=== PATIENT | female | born 1950 | race Caucasian/White ===

== ENCOUNTER 2016-10-21 22:42 | Emergency (ER) | payer OTHER, MEDICAID ==
[2016-08-29 12:04] VITALS: Ht 157.5 cm; Wt 63.0 kg
[~2016-10-21] VITALS: Ht 157.5 cm; Wt 63.0 kg
[2016-10-21 22:42] VITALS: BP 120/64; PULSE 101; RESP 18; TEMP 98.9; O2SAT 98
[~2016-10-21 22:42] MED LIST: HYDR-4100 PO; NOR10 PO; PRED20TA PO; TAPE50TA9 PO; TETR250C3 PO; TRAM50TA92 PO; VITD2000 PO
--- NOTE | 2016-10-21 22:42 | NUR ---
Patient to ER bed 2 to gown for evaluation. Side rails up. Report given to MAHIN Limon.
--- NOTE | 2016-10-21 23:00 | NUR ---
REINA Salmeron at bedside examining patient.
--- NOTE | 2016-10-21 23:13 | NUR ---
Pt. BIBA with c/o pain 06/15 and skin rashes. Pt. states pain has become unbearable. She also states that the rashes on her body have been there since she was born
[2016-10-21] MEDS ORDERED: DIPHENHYDRAMINE INJ 50 MG/ML VIAL IM ONE (23:15)
[2016-10-21] MEDS ORDERED: PREDNISONE 20 MG TABLET PO ONE (23:15)
[2016-10-21] MEDS ORDERED: PROCHLORPERAZINE EDISYLATE 10 MG/2 ML VIAL IM ONE (23:15)
[2016-10-21] MEDS ORDERED: LORazepam 2 MG/ML VIAL (FOR ER USE) IM ONE (23:15)
[2016-10-22] MEDS ORDERED: MORPHINE SULFATE 10 MG/ML VIAL IM ONE (00:15)
--- NOTE | 2016-10-22 00:30 | NUR ---
xray at bedside
[2016-10-22] MEDS ORDERED: MORPHINE 4 MG/ML INJ. SYRINGE ONE (00:31)
--- NOTE | 2016-10-22 01:31 | NUR ---
Transportation called for pt. [place] a ride ETA [id number].
[2016-10-22 02:32] VITALS: BP 110/74; PULSE 91; RESP 18; TEMP 98.2; O2SAT 98
--- NOTE | 2016-10-22 02:32 | NUR ---
Patient given written and verbal discharge instructions and verbalizes understanding. ER MD discussed with patient the results and treatment provided. Patient in stable condition. ID arm band removed. Rx of Prednisone, Zofran, and Benadryl given. Patient educated on pain management and to follow up with PMD. Pain Scale 4/10 Opportunity for questions provided and answered.
== END 2016-10-22 02:32 | disposition home or self-care (01) ==
LOC: SED 22:42
DX: G89.29 Other chronic pain (principal); I10 Essential (primary) hypertension; M19.90 Unspecified osteoarthritis, unspecified site; Z88.8 Allergy status to other drugs, medicaments and biological substances
CPT/HCPCS: 73610; 96372; 99284; J0780; J1200; J2060; J2270; J7512

== ENCOUNTER 2017-05-05 03:14 | Emergency (ER) | payer OTHER, MEDICAID ==
[~2017-05-05] VITALS: Ht 157.5 cm; Wt 57.2 kg
[~2017-05-05 03:14] MED LIST changes: -TETR250C3 PO
[2017-05-05 03:15] VITALS: BP_SYST 157
[2017-05-05] MEDS: MORPHINE 4 MG/ML INJ. SYRINGE IVP ONE ×2 (03:59→04:25)
[2017-05-05] MEDS: DIPHENHYDRAMINE INJ 50 MG/ML VIAL IVP ONE (03:59)
[2017-05-05] MEDS: methylPREDNISolone SOD SUCC/PF 62.5 MG/ML VIAL IVP ONE (04:00)
[2017-05-05] MEDS: NACL 0.9% 1,000 ML IV ONE (04:01)
[2017-05-05 04:15] LABS: CALCIUM 8.9 mg/dL (8.4-11.0); CREATININE 0.72 mg/dL (0.55-1.30); POTASSIUM 3.7 mmol/L (3.5-5.1)
[2017-05-05 04:16] LABS: EOSINOPHILS % (AUTO) 3.1 % (0.0-4.0); HEMATOCRIT 38.5 % (36-48); HEMOGLOBIN 12.1 g/dL (12.0-16.0); LYMPHOCYTES % (AUTO) 25.5 % (20.5-51.5); MEAN CORPUSCULAR HEMOGLOBIN 25 pg (27-31); MEAN CORPUSCULAR HGB CONC 31 % (32-36); MEAN CORPUSCULAR VOLUME 80 fL (79.0-98.0); MONOCYTES % (AUTO) 9.1 % (1.7-9.3); NEUTROPHILS % (AUTO) 60.5 % (40.0-70.0); PLATELET COUNT (AUTO) 398 K/uL (130-430); RED BLOOD CELL COUNT(AUTO) 4.79 MIL/uL (4.2-6.2); RED CELL DISTRIBUTION WIDTH 17.1 % (9.0-15.0)
[2017-05-05 04:17] LABS: BASOPHILS # (AUTO) 0.2 K/uL (0.0-0.2); BASOPHILS % (AUTO) 1.8 % (0.0-2.0); EOSINOPHILS # (AUTO) 0.4 K/uL (0.0-0.4); LYMPHOCYTES # (AUTO) 3.3 K/uL (1.0-5.5); MONOCYTES # (AUTO) 1.2 K/uL (0.0-1.0); NEUTROPHILS # (AUTO) 7.9 K/uL (1.8-7.7)
[2017-05-05 04:20] LABS: ALBUMIN 3.6 g/dL (3.4-4.8); TOTAL BILIRUBIN 0.6 mg/dL (0.0-1.0)
[2017-05-05 04:21] LABS: INR 1.1 (0.8-1.2); PROTHROMBIN TIME 11.6 SECS (9.5-12.5)
[2017-05-05 04:34] LABS: BILIRUBIN,URINE NEGATIVE (NEGATIVE); BLOOD, URINE NEGATIVE (NEGATIVE); CLARITY/URINE CLEAR (CLEAR); COLOR,URINE YELLOW (YELLOW); GLUCOSE,URINE NEGATIVE (NEGATIVE); KETONES,URINE NEGATIVE (NEGATIVE); LEUKOCYTE ESTERASE ,URINE TRACE (NEGATIVE); NITRITE, URINE NEGATIVE (NEGATIVE); PH,URINE 5.5 (5.0-8.0); PROTEIN URINE NEGATIVE (NEGATIVE); UROBILINOGEN,URINE 0.2 (0.2-1.0)
[2017-05-05 04:36] LABS: BACTERIA,URINE FEW /HPF (None Seen); MUCUS,URINE None Seen /LPF (None Seen); RBC,URINE 0-3 /HPF (0-3)
[2017-05-05 04:54] LABS: ERYTHROCYTE SEDIMENTATION RATE 9 MM/HR (0-20)
[2017-05-05] MEDS: HYDROmorphone 1 MG INJ. 1 MG/ML AMPUL IVP ONE (05:42)
[2017-05-05 07:12] VITALS: BP_SYST 146
== END 2017-05-05 07:12 | disposition home or self-care (01) ==
LOC: SED 03:14
DX: L25.9 Unspecified contact dermatitis, unspecified cause (principal); L12.0 Bullous pemphigoid; M19.90 Unspecified osteoarthritis, unspecified site; F17.200 Nicotine dependence, unspecified, uncomplicated; Z88.6 Allergy status to analgesic agent; Z79.899 Other long term (current) drug therapy
CPT/HCPCS: 36415; 80053; 81000; 85025; 85610; 85651; 85730; 87086; 96361; 96374; 96375; 99284; J1170; J1200; J2270; J2930; J7030

== ENCOUNTER 2018-06-07 01:49 | Emergency (ER) | payer OTHER, MEDICAID ==
[~2018-06-07] VITALS: Ht 157.5 cm; Wt 57.2 kg
[2018-06-07 01:57] VITALS: BP_SYST 138
[2018-06-07] MEDS ORDERED: NACL 0.9% 1,000 ML IV ONE (01:57)
[2018-06-07] MEDS ORDERED: ONDANSETRON HCL 4 MG/2 ML VIAL IVP ONE (02:00)
[2018-06-07] MEDS ORDERED: MORPHINE SULFATE 10 MG/ML VIAL IVP ONE (02:00)
[2018-06-07 02:45] LABS: BASOPHILS # (AUTO) 0.1 K/uL (0.0-0.2); EOSINOPHILS # (AUTO) 0.1 K/uL (0.0-0.4); EOSINOPHILS % (AUTO) 0.6 % (0.0-4.0); HEMATOCRIT 45.8 % (36-48); HEMOGLOBIN 14.7 g/dL (12.0-16.0); LYMPHOCYTES # (AUTO) 1.9 K/uL (1.0-5.5); MEAN CORPUSCULAR HEMOGLOBIN 29 pg (27-31); MEAN CORPUSCULAR HGB CONC 32 % (32-36); MEAN CORPUSCULAR VOLUME 89 fL (79.0-98.0); MONOCYTES # (AUTO) 0.8 K/uL (0.0-1.0); NEUTROPHILS # (AUTO) 8.2 K/uL (1.8-7.7); NEUTROPHILS % (AUTO) 74.4 % (40.0-70.0); PLATELET COUNT (AUTO) 549 K/uL (130-430); RED BLOOD CELL COUNT(AUTO) 5.17 MIL/uL (4.2-6.2); RED CELL DISTRIBUTION WIDTH 16.1 % (9.0-15.0); WHITE BLOOD COUNT (AUTO) 11.1 K/uL (4.8-10.8)
[2018-06-07 02:48] LABS: INR 1.1 (0.8-1.2); PROTHROMBIN TIME 11.6 SECS (9.5-12.5)
[2018-06-07 02:49] LABS: CALCIUM 9.7 mg/dL (8.4-11.0); CREATININE 0.62 mg/dL (0.55-1.30); POTASSIUM 3.3 mmol/L (3.5-5.1)
[2018-06-07 02:53] LABS: ALBUMIN 3.6 g/dL (3.4-4.8); TOTAL BILIRUBIN 0.5 mg/dL (0.0-1.0)
[2018-06-07] MEDS ORDERED: MORPHINE 4 MG/ML INJ. SYRINGE IVP ONE (03:15)
[2018-06-07] MEDS ORDERED: LORazepam 2 MG/ML VIAL (FOR ER USE) IVP ONE (04:15)
[2018-06-07 04:47] VITALS: BP_SYST 133
== END 2018-06-07 04:47 | disposition home or self-care (01) ==
LOC: SED 01:49
DX: G89.29 Other chronic pain (principal); L12.0 Bullous pemphigoid; M54.30 Sciatica, unspecified side; I10 Essential (primary) hypertension; Z88.6 Allergy status to analgesic agent; Z79.899 Other long term (current) drug therapy
CPT/HCPCS: 36415; 71045; 80053; 82150; 82550; 83690; 84484; 85025; 85610; 85730; 93005; 96374; 96375; 96376; 99285; J2060; J2270 ×2; J7030; J2405

== ENCOUNTER 2018-06-08 23:26 | Inpatient (IN) | payer OTHER, MEDICAID ==
[~2018-06-08] VITALS: Ht 157.5 cm; Wt 63.0 kg
[2018-06-08 23:31] VITALS: BP_SYST 141
[2018-06-08] MEDS ORDERED: NACL 0.9% 1,000 ML IV ONE (23:39)
[2018-06-08] MEDS ORDERED: DIPHENHYDRAMINE INJ 50 MG/ML VIAL IM ONE (23:45)
[2018-06-08] MEDS ORDERED: MORPHINE SULFATE 10 MG/ML VIAL IM ONE (23:45)
[2018-06-09] MEDS ORDERED: PREDNISONE 20 MG TABLET PO ONE
[2018-06-09] MEDS ORDERED: OXYC-158 PO (00:17)
[2018-06-09] MEDS ORDERED: MORP4SYR PO (00:17)
[2018-06-09 00:26] LABS: CALCIUM 9.5 mg/dL (8.4-11.0); CREATININE 0.85 mg/dL (0.55-1.30); POTASSIUM 3.6 mmol/L (3.5-5.1)
[2018-06-09] MEDS ORDERED: LORazepam 2 MG/ML VIAL (FOR ER USE) IVP ONE (00:30)
[2018-06-09 00:31] LABS: BASOPHILS # (AUTO) 0.4 K/uL (0.0-0.2); BASOPHILS % (AUTO) 2.3 % (0.0-2.0); EOSINOPHILS # (AUTO) 0.5 K/uL (0.0-0.4); EOSINOPHILS % (AUTO) 3.3 % (0.0-4.0); HEMATOCRIT 49.3 % (36-48); HEMOGLOBIN 16.3 g/dL (12.0-16.0); LYMPHOCYTES # (AUTO) 2.9 K/uL (1.0-5.5); LYMPHOCYTES % (AUTO) 17.8 % (20.5-51.5); MEAN CORPUSCULAR HEMOGLOBIN 29 pg (27-31); MEAN CORPUSCULAR HGB CONC 33 % (32-36); MEAN CORPUSCULAR VOLUME 89 fL (79.0-98.0); MONOCYTES # (AUTO) 1.1 K/uL (0.0-1.0); MONOCYTES % (AUTO) 6.9 % (1.7-9.3); NEUTROPHILS # (AUTO) 11.2 K/uL (1.8-7.7); NEUTROPHILS % (AUTO) 69.7 % (40.0-70.0); PLATELET COUNT (AUTO) 662 K/uL (130-430); RED BLOOD CELL COUNT(AUTO) 5.54 MIL/uL (4.2-6.2); RED CELL DISTRIBUTION WIDTH 15.8 % (9.0-15.0); WHITE BLOOD COUNT (AUTO) 16.1 K/uL (4.8-10.8)
[2018-06-09 00:40] LABS: ALBUMIN 3.8 g/dL (3.4-4.8); TOTAL BILIRUBIN 0.8 mg/dL (0.0-1.0)
[2018-06-09 00:43] LABS: INR 1.2 (0.8-1.2); PROTHROMBIN TIME 11.8 SECS (9.5-12.5)
[2018-06-09] MEDS ORDERED: MORPHINE 4 MG/ML INJ. SYRINGE IVP ONE (00:45)
[2018-06-09] MEDS ORDERED: DIPHENHYDRAMINE INJ 50 MG/ML VIAL IVP ONE (00:45)
[2018-06-09] MEDS ORDERED: cefTRIAXone 1 GM IVPB PREMIX 50 ML IV ONE ×2 (01:45)
[2018-06-09] MEDS: MORPHINE 2 MG/ML INJ. SYRINGE IVP PRN ×4 (02:22→20:44)
[2018-06-09] MEDS ORDERED: HYDROcodone/ACETAMIN 10-325 MG TAB PO PRN (03:00)
[2018-06-09] MEDS ORDERED: LORazepam 2 MG/ML VIAL IM PRN (03:00)
[2018-06-09] MEDS: LORazepam 2 MG/ML VIAL IVP PRN ×3 (03:26→21:35)
[2018-06-09] MEDS: DIPHENHYDRAMINE HCL 25 MG CAPSULE PO PRN (08:57)
[2018-06-09] MEDS ORDERED: ACETAMINOPHEN 325 MG TABLET PO PRN (09:15)
[2018-06-09] MEDS ORDERED: ZOLPIDEM TARTRATE 5 MG TABLET PO PRN (09:15)
[2018-06-09] MEDS ORDERED: ONDANSETRON HCL 4 MG/2 ML VIAL IVP PRN (09:15)
[2018-06-09] MEDS ORDERED: MAGNESIUM SULFATE 50 ML IV PRN (09:15)
[2018-06-09] MEDS ORDERED: DOCUSATE SODIUM 100 MG CAPSULE PO PRN (09:15)
[2018-06-09] MEDS ORDERED: OXYCODONE/ACETAMINOPHEN *10*mg/325 mg TABLET ONE (09:22)
[2018-06-09] MEDS ORDERED: DOXYCYCLINE HYCLATE 100 MG CAPSULE PO ONE (10:15)
[2018-06-09] MEDS: amLODIPine BESYLATE 10 MG TABLET PO SCH (10:26)
[2018-06-09] MEDS: traMADol HCL HCL 50 MG TABLET (ULTRAM) PO SCH ×3 (10:27→21:44)
[2018-06-09] MEDS: PREDNISONE 5 MG TABLET PO SCH (10:27)
[2018-06-09] MEDS: NACL 0.9% 1,000 ML IV SCH ×2 (10:28→22:57)
[2018-06-09 12:20] VITALS: BP_SYST 114
[2018-06-09] MEDS: FLUCONAZOLE 200 mg/ NS 100 ML IV SCH (14:48)
[2018-06-09] MEDS: ceFAZolin SODIUM 1 GM in D5W 50 ML IV SCH ×2 (14:48→22:57)
[2018-06-09 16:42] VITALS: BP_SYST 121
[2018-06-09 17:21] LABS: BILIRUBIN,URINE NEGATIVE (NEGATIVE); BLOOD, URINE 1+ (NEGATIVE); CLARITY/URINE CLEAR (CLEAR); COLOR,URINE YELLOW (YELLOW); GLUCOSE,URINE NEGATIVE (NEGATIVE); KETONES,URINE 2+ (NEGATIVE); LEUKOCYTE ESTERASE ,URINE TRACE (NEGATIVE); NITRITE, URINE NEGATIVE (NEGATIVE); PROTEIN URINE TRACE (NEGATIVE); UROBILINOGEN,URINE 0.2 (0.2-1.0)
[2018-06-09 17:50] LABS: BARBITURATE, URINE NEGATIVE (NEG <=200); URINE AMPHETAMINE NEGATIVE (NEG <=500)
[2018-06-09 17:51] LABS: BENZODIAZEPINE, URINE POSITIVE (NEG <=150); CANNABINOID, URINE NEGATIVE (NEG <=50); COCAINE, URINE NEGATIVE (NEG <=150); METHAMPHETAMINES SCREEN,URINE NEGATIVE (NEG <=500); OPIATE, URINE POSITIVE (NEG <=100); PHENCYCLIDINE SCREEN,URINE NEGATIVE (NEG <=25); UR TRICYCLIC ANTIDEPRESSANTS NEGATIVE (NEG <=300); URINE METHADONE NEGATIVE (NEG <=200); URINE OXYCODONE SCREEN POSITIVE (NEG <=100); URINE PROPOXYPHENE SCREEN NEGATIVE (NEG <=300)
[2018-06-09 18:20] LABS: BACTERIA,URINE FEW /HPF (None Seen); RBC,URINE 0-3 /HPF (0-3)
[2018-06-09 18:21] LABS: FINE GRANULAR CASTS,URINE 0-10 /LPF (None Seen); HYALINE CASTS, URINE 0-10 /LPF (None Seen); MUCUS,URINE 2+ /LPF (None Seen)
[2018-06-09 20:20] VITALS: BP_SYST 136
[2018-06-09] MEDS ORDERED: cefTRIAXone 1 GM in D5W 50 ML IV SCH (21:00)
[2018-06-09] MEDS: HEPARIN SODIUM,PORCINE 5000 UNITS/ML VIAL SUBCUT SCH (21:41)
[2018-06-10 00:14] VITALS: BP_SYST 135
[2018-06-10] MEDS: MORPHINE 2 MG/ML INJ. SYRINGE IVP PRN ×6 (00:48→21:33)
[2018-06-10] MEDS: LORazepam 2 MG/ML VIAL IVP PRN ×5 (03:01→19:59)
[2018-06-10] MEDS: ceFAZolin SODIUM 1 GM in D5W 50 ML IV SCH ×3 (06:22→21:32)
[2018-06-10] MEDS: OXYCODONE/ACETAMINOPHEN *10*mg/325 mg TABLET PO PRN ×5 (06:25→23:45)
[2018-06-10 07:01] LABS: BASOPHILS # (AUTO) 0.1 K/uL (0.0-0.2); BASOPHILS % (AUTO) 1.1 % (0.0-2.0); CALCIUM 8.5 mg/dL (8.4-11.0); CREATININE 0.41 mg/dL (0.55-1.30); EOSINOPHILS # (AUTO) 0.2 K/uL (0.0-0.4); EOSINOPHILS % (AUTO) 1.6 % (0.0-4.0); HEMATOCRIT 41.4 % (36-48); HEMOGLOBIN 13.4 g/dL (12.0-16.0); LYMPHOCYTES # (AUTO) 2.1 K/uL (1.0-5.5); MEAN CORPUSCULAR HEMOGLOBIN 29 pg (27-31); MEAN CORPUSCULAR HGB CONC 32 % (32-36); MEAN CORPUSCULAR VOLUME 89 fL (79.0-98.0); MONOCYTES # (AUTO) 0.9 K/uL (0.0-1.0); MONOCYTES % (AUTO) 8.2 % (1.7-9.3); NEUTROPHILS # (AUTO) 7.1 K/uL (1.8-7.7); NEUTROPHILS % (AUTO) 69.1 % (40.0-70.0); PLATELET COUNT (AUTO) 428 K/uL (130-430); POTASSIUM 3.1 mmol/L (3.5-5.1); RED BLOOD CELL COUNT(AUTO) 4.64 MIL/uL (4.2-6.2); RED CELL DISTRIBUTION WIDTH 15.7 % (9.0-15.0); WHITE BLOOD COUNT (AUTO) 10.4 K/uL (4.8-10.8)
[2018-06-10] MEDS: PREDNISONE 5 MG TABLET PO SCH (08:51)
[2018-06-10] MEDS: traMADol HCL HCL 50 MG TABLET (ULTRAM) PO SCH ×3 (08:52→19:58)
[2018-06-10] MEDS: amLODIPine BESYLATE 10 MG TABLET PO SCH (08:54)
[2018-06-10] MEDS: HEPARIN SODIUM,PORCINE 5000 UNITS/ML VIAL SUBCUT SCH ×2 (08:56→20:00)
[2018-06-10] MEDS: NACL 0.9% 1,000 ML IV SCH ×2 (08:59→22:45)
[2018-06-10] MEDS ORDERED: DOXYCYCLINE HYCLATE 100 MG CAPSULE PO SCH (09:00)
[2018-06-10 09:02] VITALS: BP_SYST 142
[2018-06-10] MEDS: POTASSIUM CHLORIDE 20 MEQ TAB.PRT.SR PO PRN ×2 (10:31→20:14)
[2018-06-10 12:02] VITALS: BP_SYST 138
[2018-06-10] MEDS: FLUCONAZOLE 200 mg/ NS 100 ML IV SCH (14:17)
[2018-06-10 16:02] VITALS: BP_SYST 114
[2018-06-10 19:45] VITALS: BP_SYST 153
[2018-06-10] MEDS: DIPHENHYDRAMINE HCL 25 MG CAPSULE PO PRN (21:32)
[2018-06-10 23:10] VITALS: BP_SYST 129
[2018-06-11] MEDS: LORazepam 2 MG/ML VIAL IVP PRN ×5 (00:23→19:22)
[2018-06-11] MEDS: MORPHINE 2 MG/ML INJ. SYRINGE IVP PRN ×5 (02:10→21:27)
[2018-06-11] MEDS: OXYCODONE/ACETAMINOPHEN *10*mg/325 mg TABLET PO PRN ×5 (03:49→23:26)
[2018-06-11 06:54] LABS: HEMATOCRIT 41.9 % (36-48); HEMOGLOBIN 13.6 g/dL (12.0-16.0); MEAN CORPUSCULAR HEMOGLOBIN 29 pg (27-31); MEAN CORPUSCULAR HGB CONC 32 % (32-36); MEAN CORPUSCULAR VOLUME 89 fL (79.0-98.0); PLATELET COUNT (AUTO) 430 K/uL (130-430); RED BLOOD CELL COUNT(AUTO) 4.69 MIL/uL (4.2-6.2); RED CELL DISTRIBUTION WIDTH 15.9 % (9.0-15.0); WHITE BLOOD COUNT (AUTO) 7.3 K/uL (4.8-10.8)
[2018-06-11] MEDS: ceFAZolin SODIUM 1 GM in D5W 50 ML IV SCH ×3 (06:57→21:26)
[2018-06-11 07:29] LABS: CALCIUM 8.7 mg/dL (8.4-11.0); CREATININE 0.43 mg/dL (0.55-1.30); POTASSIUM 3.7 mmol/L (3.5-5.1)
[2018-06-11 08:55] VITALS: BP_SYST 119
[2018-06-11] MEDS ORDERED: MUPIROCIN 2% TOPICAL OINTMENT 22 GM NS PRN (09:00)
[2018-06-11] MEDS: traMADol HCL HCL 50 MG TABLET (ULTRAM) PO SCH ×3 (09:06→21:20)
[2018-06-11] MEDS: PREDNISONE 5 MG TABLET PO SCH (09:07)
[2018-06-11] MEDS: amLODIPine BESYLATE 10 MG TABLET PO SCH (09:07)
[2018-06-11] MEDS: HEPARIN SODIUM,PORCINE 5000 UNITS/ML VIAL SUBCUT SCH ×2 (09:10→21:33)
[2018-06-11 10:14] LABS: BASOPHILS % (MANUAL) 0 % (0-2); EOSINOPHILS % (MANUAL) 3 % (0-7); LYMPHOCYTES % (MANUAL) 24 % (20-46); MONOCYTES % (MANUAL) 13 % (0-11)
[2018-06-11 11:30] VITALS: BP_SYST 108
[2018-06-11] MEDS: NACL 0.9% 1,000 ML IV SCH ×2 (12:10→23:26)
[2018-06-11 15:09] VITALS: BP_SYST 139
[2018-06-11 21:27] VITALS: BP_SYST 151
[2018-06-12 00:08] VITALS: BP_SYST 147
[2018-06-12] MEDS: LORazepam 2 MG/ML VIAL IVP PRN (00:56)
[2018-06-12] MEDS: MORPHINE 2 MG/ML INJ. SYRINGE IVP PRN ×3 (01:51→10:27)
[2018-06-12] MEDS: ceFAZolin SODIUM 1 GM in D5W 50 ML IV SCH ×2 (06:13→12:58)
[2018-06-12 06:45] LABS: CALCIUM 8.9 mg/dL (8.4-11.0); CREATININE 0.45 mg/dL (0.55-1.30); POTASSIUM 3.3 mmol/L (3.5-5.1)
[2018-06-12 07:08] LABS: BASOPHILS # (AUTO) 0.2 K/uL (0.0-0.2); BASOPHILS % (AUTO) 2.1 % (0.0-2.0); EOSINOPHILS # (AUTO) 0.2 K/uL (0.0-0.4); EOSINOPHILS % (AUTO) 2.5 % (0.0-4.0); HEMATOCRIT 43.2 % (36-48); HEMOGLOBIN 13.9 g/dL (12.0-16.0); LYMPHOCYTES # (AUTO) 2.3 K/uL (1.0-5.5); LYMPHOCYTES % (AUTO) 24.2 % (20.5-51.5); MEAN CORPUSCULAR HEMOGLOBIN 29 pg (27-31); MEAN CORPUSCULAR HGB CONC 32 % (32-36); MEAN CORPUSCULAR VOLUME 89 fL (79.0-98.0); MONOCYTES # (AUTO) 0.7 K/uL (0.0-1.0); MONOCYTES % (AUTO) 7.6 % (1.7-9.3); NEUTROPHILS # (AUTO) 6.3 K/uL (1.8-7.7); NEUTROPHILS % (AUTO) 63.6 % (40.0-70.0); PLATELET COUNT (AUTO) 433 K/uL (130-430); RED BLOOD CELL COUNT(AUTO) 4.86 MIL/uL (4.2-6.2); RED CELL DISTRIBUTION WIDTH 15.4 % (9.0-15.0); WHITE BLOOD COUNT (AUTO) 9.7 K/uL (4.8-10.8)
[2018-06-12] MEDS ORDERED: FLUC200T PO (07:55)
[2018-06-12] MEDS ORDERED: CEPH-568 PO (07:55)
[2018-06-12] MEDS ORDERED: DOXY100T2 PO (07:55)
[2018-06-12 08:01] VITALS: BP_SYST 151
[2018-06-12] MEDS: PREDNISONE 5 MG TABLET PO SCH (08:11)
[2018-06-12] MEDS: POTASSIUM CHLORIDE 20 MEQ TAB.PRT.SR PO PRN (08:12)
[2018-06-12] MEDS: amLODIPine BESYLATE 10 MG TABLET PO SCH (08:12)
[2018-06-12] MEDS: OXYCODONE/ACETAMINOPHEN *10*mg/325 mg TABLET PO PRN ×2 (08:12→12:31)
[2018-06-12] MEDS: traMADol HCL HCL 50 MG TABLET (ULTRAM) PO SCH (08:13)
[2018-06-12] MEDS: HEPARIN SODIUM,PORCINE 5000 UNITS/ML VIAL SUBCUT SCH (08:14)
[2018-06-12] MEDS ORDERED: FLUCONAZOLE 200 MG TABLET (DIFLUCAN) PO SCH (09:00)
[2018-06-12 10:41] VITALS: BP_SYST 135
[2018-06-12] MEDS: NACL 0.9% 1,000 ML IV SCH (11:27)
[2018-06-12 12:02] VITALS: BP_SYST 135
== END 2018-06-12 14:00 | disposition home or self-care (01) | DRG 872 ==
LOC: SED 23:26 → SMU 06-09 01:23
PROVIDERS: ADMIT General Practice; ATTEND General Practice
DX: A41.9 Sepsis, unspecified organism (principal); L03.319 Cellulitis of trunk, unspecified; L12.0 Bullous pemphigoid; F11.20 Opioid dependence, uncomplicated; L03.116 Cellulitis of left lower limb; L03.115 Cellulitis of right lower limb; L03.114 Cellulitis of left upper limb; L03.113 Cellulitis of right upper limb; M35.9 Systemic involvement of connective tissue, unspecified; B96.89 Other specified bacterial agents as the cause of diseases classified elsewhere; I10 Essential (primary) hypertension; F41.9 Anxiety disorder, unspecified; E87.6 Hypokalemia; G89.4 Chronic pain syndrome; B36.9 Superficial mycosis, unspecified; F17.210 Nicotine dependence, cigarettes, uncomplicated; Z90.710 Acquired absence of both cervix and uterus; Z88.6 Allergy status to analgesic agent; Z71.6 Tobacco abuse counseling
CPT/HCPCS: 36415; 80048; 80053; 80307; 81000-TC; 83036; 83605; 83735-TC; 85007; 85025; 85027; 85610-TC; 85651-TC; 85730-TC; 87040-TC; 87081; 87086; 87210-TC; 96365; 96372; 96375; 99285; J0690; J0696; J1200; J1450; J1644; J2060; J2270; J7030; J7060; J7512; Q0163

== ENCOUNTER 2018-08-05 20:31 | Emergency (ER) | payer OTHER, MEDICAID ==
[~2018-08-05] VITALS: Ht 157.5 cm; Wt 57.2 kg
[2018-08-05 20:31] VITALS: BP_SYST 141
[~2018-08-05 20:31] MED LIST changes: +CEPH-568 PO; +DOXY100T2 PO; +FLUC200T PO; -HYDR-4100 PO; +MORP4SYR PO; +OXYC-158 PO
[2018-08-05] MEDS ORDERED: FAMOTIDINE PF 20 MG/2 ML VIAL IVP ONE (20:45)
[2018-08-05] MEDS ORDERED: MORPHINE 4 MG/ML INJ. SYRINGE IVP ONE ×3 (20:45→23:15)
[2018-08-05] MEDS ORDERED: ONDANSETRON HCL 4 MG/2 ML VIAL IVP ONE (20:45)
[2018-08-05 21:08] LABS: BASOPHILS # (AUTO) 0.1 K/uL (0.0-0.2); BASOPHILS % (AUTO) 1.1 % (0.0-2.0); EOSINOPHILS # (AUTO) 0.2 K/uL (0.0-0.4); EOSINOPHILS % (AUTO) 1.9 % (0.0-4.0); HEMATOCRIT 43.2 % (36-48); HEMOGLOBIN 13.9 g/dL (12.0-16.0); LYMPHOCYTES # (AUTO) 2.1 K/uL (1.0-5.5); LYMPHOCYTES % (AUTO) 24.8 % (20.5-51.5); MEAN CORPUSCULAR HEMOGLOBIN 29 pg (27-31); MEAN CORPUSCULAR HGB CONC 32 % (32-36); MEAN CORPUSCULAR VOLUME 89 fL (79.0-98.0); MONOCYTES # (AUTO) 0.6 K/uL (0.0-1.0); MONOCYTES % (AUTO) 6.5 % (1.7-9.3); NEUTROPHILS # (AUTO) 5.5 K/uL (1.8-7.7); NEUTROPHILS % (AUTO) 65.7 % (40.0-70.0); RED BLOOD CELL COUNT(AUTO) 4.86 MIL/uL (4.2-6.2); RED CELL DISTRIBUTION WIDTH 16.1 % (9.0-15.0); WHITE BLOOD COUNT (AUTO) 8.5 K/uL (4.8-10.8)
[2018-08-05 21:12] LABS: PLATELET COUNT (AUTO) 481 K/uL (130-430)
[2018-08-05 21:15] LABS: CREATININE 0.51 mg/dL (0.55-1.30); POTASSIUM 3.3 mmol/L (3.5-5.1)
[2018-08-05 21:19] LABS: ALBUMIN 3.5 g/dL (3.4-4.8); TOTAL BILIRUBIN 0.8 mg/dL (0.0-1.0)
[2018-08-05] MEDS ORDERED: MAG HYDROX/AL HYDROX/SIMETH 30 ML, BELLADONNA ALKALOIDS/PHENOBARB 10 ML, LIDOCAINE VISC... PO ONE ×3 (21:45)
[2018-08-05] MEDS ORDERED: LACTULOSE 20 GM/30 ML UDC PO ONE (22:30)
[2018-08-05] MEDS ORDERED: NA PHOS,M-B/NA PHOS,DI-BA 118 ML (FLEET ENEMA) RC ONE (22:45)
[2018-08-05] MEDS ORDERED: ACETAMINOPHEN 500 MG TABLET PO ONE (23:00)
[2018-08-05] MEDS ORDERED: ACETAMINOPHEN 500 MG TABLET ONE (23:04)
[2018-08-05 23:30] VITALS: BP_SYST 132
== END 2018-08-05 23:30 | disposition home or self-care (01) ==
LOC: SED 20:31
DX: G89.29 Other chronic pain (principal); K59.00 Constipation, unspecified; I10 Essential (primary) hypertension; Z76.5 Malingerer [conscious simulation]; Z88.6 Allergy status to analgesic agent; Z79.899 Other long term (current) drug therapy
CPT/HCPCS: 36415; 74176; 80053; 83690; 85025; 96374; 96375; 96376; 99284; J2001; J2270; J2405; J3490

== ENCOUNTER 2018-10-04 23:02 | Emergency (ER) | payer OTHER, MEDICAID ==
[~2018-10-04] VITALS: Ht 157.5 cm; Wt 57.2 kg
[2018-10-04 23:07] VITALS: BP_SYST 138
[2018-10-04] MEDS ORDERED: MORPHINE 4 MG/ML INJ. SYRINGE IVP ONE (23:45)
[2018-10-04] MEDS ORDERED: NACL 0.9% 1,000 ML IV ONE (23:45)
[2018-10-04] MEDS ORDERED: DIPHENHYDRAMINE INJ 50 MG/ML VIAL IVP ONE (23:45)
[2018-10-05 00:25] LABS: BASOPHILS # (AUTO) 0.1 K/uL (0.0-0.2); BASOPHILS % (AUTO) 1.1 % (0.0-2.0); EOSINOPHILS # (AUTO) 0.8 K/uL (0.0-0.4); EOSINOPHILS % (AUTO) 6.8 % (0.0-4.0); HEMATOCRIT 41.2 % (36-48); HEMOGLOBIN 13.4 g/dL (12.0-16.0); LYMPHOCYTES # (AUTO) 2.4 K/uL (1.0-5.5); LYMPHOCYTES % (AUTO) 20.3 % (20.5-51.5); MEAN CORPUSCULAR HEMOGLOBIN 29 pg (27-31); MEAN CORPUSCULAR HGB CONC 33 % (32-36); MEAN CORPUSCULAR VOLUME 88 fL (79.0-98.0); MONOCYTES # (AUTO) 0.5 K/uL (0.0-1.0); MONOCYTES % (AUTO) 4.6 % (1.7-9.3); NEUTROPHILS # (AUTO) 7.9 K/uL (1.8-7.7); NEUTROPHILS % (AUTO) 67.2 % (40.0-70.0); PLATELET COUNT (AUTO) 455 K/uL (130-430); RED BLOOD CELL COUNT(AUTO) 4.69 MIL/uL (4.2-6.2); WHITE BLOOD COUNT (AUTO) 11.7 K/uL (4.8-10.8)
[2018-10-05 00:35] LABS: CALCIUM 8.4 mg/dL (8.4-11.0); CREATININE 0.48 mg/dL (0.55-1.30); POTASSIUM 3.6 mmol/L (3.5-5.1)
[2018-10-05 00:40] LABS: ALBUMIN 3.1 g/dL (3.4-4.8); TOTAL BILIRUBIN 0.3 mg/dL (0.0-1.0)
[2018-10-05] MEDS ORDERED: MORPHINE 4 MG/ML INJ. SYRINGE IVP ONE (01:00)
[2018-10-05] MEDS ORDERED: HALOPERIDOL LACTATE 5 MG/ML VIAL IVP ONE (01:00)
[2018-10-05 02:15] VITALS: BP_SYST 136
== END 2018-10-05 02:15 | disposition home or self-care (01) ==
LOC: SED 23:02
DX: R21 Rash and other nonspecific skin eruption (principal); F41.9 Anxiety disorder, unspecified; I10 Essential (primary) hypertension; Z88.6 Allergy status to analgesic agent; Z79.899 Other long term (current) drug therapy
CPT/HCPCS: 36415; 71045; 80053; 83605; 85025; 87040; 96374; 96375; 96376; 99284; J1200; J1630; J2270; J7030

== ENCOUNTER 2018-10-14 03:25 | Inpatient (IN) | payer OTHER, MEDICAID ==
[~2018-10-14] VITALS: Ht 157.5 cm; Wt 54.0 kg
[~2018-10-14 03:25] MED LIST changes: -TAPE50TA9 PO; +[UNRECOGNIZED DRUG - CODE] PO
--- NOTE | 2018-10-14 03:27 | NUR ---
Patient to ER bed 3 to gown for evaluation. Side rails up. Report given to NAHID STOCKTON.
[2018-10-14 03:28] VITALS: BP_SYST 136
--- NOTE | 2018-10-14 03:36 | NUR ---
ER at bedside examining patient.
--- NOTE | 2018-10-14 03:40 | NUR ---
Pt came to the ED post fall 9 days ago. Pt resides at [facility]. Pain is 10/10. Reports to not have been able to drink/eat for the last 4 days. Denies n/v/d or fever. Pain located on L hip. No other complaints/injuries noted. Will cont. to monitor.
[2018-10-14] MEDS ORDERED: MORPHINE 4 MG/ML INJ. SYRINGE IM ONE ×2 (03:45→05:30)
[2018-10-14] MEDS ORDERED: DIPHENHYDRAMINE INJ 50 MG/ML VIAL IM ONE (03:45)
--- NOTE | 2018-10-14 03:55 | NUR ---
Pt medicated with morphine IM and benadryl IM per MD order. Tolerated well. WIll cont. to monitor.
--- NOTE | 2018-10-14 04:10 | NUR ---
Pt states, "I do not want a gonzalez. I want to use a bedpan." REINA MNECHACA made aware.
[2018-10-14] MEDS ORDERED: NACL 0.9% 1,000 ML IV ONE (05:09)
[2018-10-14] MEDS ORDERED: MORPHINE 4 MG/ML INJ. SYRINGE IVP ONE (05:15)
--- NOTE | 2018-10-14 05:44 | NUR ---
Pt medicated with fluids and morphine IM per MD order. Tolerated well. Will cont. to monitor.
[2018-10-14] MEDS ORDERED: MORP15TA PO (06:27)
[2018-10-14] MEDS ORDERED: GABA-531 PO (06:27)
[2018-10-14] MEDS ORDERED: LIP40 PO (06:27)
[2018-10-14] MEDS ORDERED: OXYC10TA56 PO (06:27)
[2018-10-14] MEDS ORDERED: EXCED PO (06:27)
[2018-10-14] MEDS ORDERED: ONDANSETRON HCL 4 MG/2 ML VIAL IVP PRN ×2 (06:30→07:15)
[2018-10-14] MEDS ORDERED: MORPHINE 2 MG/ML INJ. SYRINGE IVP PRN (06:30)
[2018-10-14 06:34] LABS: BASOPHILS # (AUTO) 0.1 K/uL (0.0-0.2); BASOPHILS % (AUTO) 0.7 % (0.0-2.0); EOSINOPHILS # (AUTO) 0.5 K/uL (0.0-0.4); EOSINOPHILS % (AUTO) 5.5 % (0.0-4.0); HEMOGLOBIN 13.5 g/dL (12.0-16.0); LYMPHOCYTES # (AUTO) 1.7 K/uL (1.0-5.5); LYMPHOCYTES % (AUTO) 19.8 % (20.5-51.5); MEAN CORPUSCULAR HEMOGLOBIN 28 pg (27-31); MEAN CORPUSCULAR HGB CONC 32 % (32-36); MEAN CORPUSCULAR VOLUME 87 fL (79.0-98.0); MONOCYTES # (AUTO) 0.6 K/uL (0.0-1.0); MONOCYTES % (AUTO) 6.4 % (1.7-9.3); NEUTROPHILS # (AUTO) 5.9 K/uL (1.8-7.7); NEUTROPHILS % (AUTO) 67.6 % (40.0-70.0); PLATELET COUNT (AUTO) 494 K/uL (130-430); RED BLOOD CELL COUNT(AUTO) 4.82 MIL/uL (4.2-6.2); RED CELL DISTRIBUTION WIDTH 15.5 % (9.0-15.0); WHITE BLOOD COUNT (AUTO) 8.8 K/uL (4.8-10.8)
[2018-10-14 06:49] LABS: INR 1.1 (0.8-1.2); PROTHROMBIN TIME 11.2 SECS (9.5-12.5)
[2018-10-14 07:00] LABS: CALCIUM 8.8 mg/dL (8.4-11.0); CREATININE 0.58 mg/dL (0.55-1.30)
[2018-10-14 07:06] LABS: ALBUMIN 2.8 g/dL (3.4-4.8); TOTAL BILIRUBIN 0.6 mg/dL (0.0-1.0)
[2018-10-14] MEDS ORDERED: MORPHINE 4 MG/ML INJ. SYRINGE IVP PRN (07:15)
--- NOTE | 2018-10-14 07:16 | NUR ---
Patient will be admitted to care of Dr. Meeks. Admitted to Med surg unit. Will go to room 122A. Belongings list completed. Summary report printed. Report will be given at bedside.
--- NOTE | 2018-10-14 07:31 | NUR ---
ADMISSION NOTE Received patient from ER via hunter, received report from NAHID STOCKTON. Patient admitted with diagnosis of HIP FTRACTURE. Patient oriented to hospital routine, call light, toileting and safety-patient verbalized understanding.
--- NOTE | 2018-10-14 07:38 | NUR ---
CONSULTATION PAGED REASON FOR CONSULTATION:LEFT HIP FRACTURE WAS CONSULT CALLED?Y PERSON WHO WAS NOTIFIED:CINTHIA CONSULTING PHYSICIAN:KEVEN ANN FINISHING DEPARTMENT SUPERVISOR SPECIALTY:ORTHO FINISHING DEPARTMENT SUPERVISOR PHONE NUMBER:[phone] REQUESTING PHYSICIAN:LIZ GUTIERREZ
--- NOTE | 2018-10-14 07:40 | NUR ---
Initial Note patient resting in bed, awake and alert, complaining of pain at this time, educated patient regarding pain management, verbalized understanding, positioned to her side, educated patient on use of call light for assistance, verbalized understanding, safety precautions in place, bedside table and call light within reach, will continue to monitor closely
--- NOTE | 2018-10-14 07:49 | NUR ---
Dr. Russell Called stated he will be by to see patient, will await MD rounds
[2018-10-14 07:51] VITALS: BP_SYST 135
[2018-10-14 07:53] LABS: POTASSIUM 3.7 mmol/L (3.5-5.1)
[2018-10-14] MEDS ORDERED: PERC10 PO (08:37)
[2018-10-14] MEDS ORDERED: MORP15TA60 PO (08:37)
--- NOTE | 2018-10-14 09:26 | NUR ---
Paged Dr. Slater relationship management lead from [phone] De Dios. Called for pain med order, will await call back
--- NOTE | 2018-10-14 09:35 | NUR ---
Educated patient regarding Gonzalez Insertion informed patient bladder is distended, stated she does not want gonzalez because it will hurt to much to be repositioned, educated her on potential side effects from not voiding, verbalized understanding, informed her that paged MD for pain med orders, will await call back
--- NOTE | 2018-10-14 10:34 | NUR ---
Paged Dr. Slater Second time regarding orders, awaiting MD to call back
--- NOTE | 2018-10-14 10:46 | NUR ---
Nutrition Update Be Scale 14 noted. Pt admitted for hip fracture. Diet: NPO BMI: 21.9 kg/m2 RD to follow per nutrition care standards.
--- NOTE | 2018-10-14 10:51 | NUR ---
Dr. Russell Rounding at this time, will await orders
[2018-10-14] MEDS: HYDROmorphone 2 MG/ML VIAL IVP PRN ×6 (11:44→22:44)
--- NOTE | 2018-10-14 11:52 | NUR ---
Spoke to Dr. Slater Over Phone informed him that Dr. Russell placed orders for patient but MD from his nephrology group has not rounded yet, he verbalized understanding and stated he will be by later today, will await MD rounds
[2018-10-14] MEDS ORDERED: NS IRRIG SOLN 1000 ML IR ONE (12:00)
[2018-10-14] MEDS ORDERED: BUPIVACAINE /DEX PF 0.75% SPINAL 2 ML AMP INJ ONE (12:00)
[2018-10-14] MEDS ORDERED: LR 1,000 ML IV.SOLN IV ONE (12:00)
[2018-10-14] MEDS ORDERED: CEFAZOLIN 2 GM IVPB PREMIX 50 ML IV ONE (12:00)
[2018-10-14] MEDS ORDERED: MORPHINE SULFATE 10MG/10ML PF AMP EP ONE (12:00)
[2018-10-14] MEDS ORDERED: MIDAZOLAM HCL 5 MG/5 ML VIAL IVP ONE (12:00)
[2018-10-14] MEDS ORDERED: BUPIVACAINE LIPOSOME/PF 266 MG/20 ML VIAL INFIL ONE (12:00)
[2018-10-14] MEDS ORDERED: PROPOFOL 200MG/ 20ML VIAL (DIPRIVAN) IV ONE (12:00)
[2018-10-14] MEDS ORDERED: HYDROCORTISONE SOD SUCC 100 MG/2 ML VIAL IVP ONE (12:00)
[2018-10-14] MEDS: NACL 0.9% 1,000 ML IV SCH ×2 (12:03→22:45)
[2018-10-14 12:11] VITALS: BP_SYST 133
--- NOTE | 2018-10-14 13:30 | NUR ---
Patient Doesn't want Gonzalez inserted at this time, per Miguelina STOCKTON, patient voided 500 + mL of urine via fracture knowles. Patient stated "I would rather not have gonzalez catheter". Will assess later.
--- NOTE | 2018-10-14 13:57 | NUR ---
Dilaudid educated patient regarding med, verbalized understanding, tolerated well, IV site remains patent, breathing unlabored and symmetrical, educated patient on use of call light for assistance, verbalized understanding, call light and bedside table left within reach, will continue to monitor patient
--- NOTE | 2018-10-14 14:52 | NUR ---
PAGED PAGED DINORAH FLOREZ AT [phone] SPOKE WITH OJ.
--- NOTE | 2018-10-14 15:20 | NUR ---
Spoke with OR/Scheduled for Wednesday at noon per OR, patient made aware Addendum: 10/14/18 at 1718 by Amarilys Patel RN Khushbu, barry patient. Piedad Garibay scheduled for ORIF at 0900 per OR. Patient made aware
--- NOTE | 2018-10-14 15:25 | NUR ---
Dietitian Recommendations * Recommend continuing regular diet per LP, RD Please refer to Nutrition Assessment for details.
--- NOTE | 2018-10-14 16:05 | NUR ---
IV RE-INSERTION: IV site was dislodged. Restarted on left forearm 22G. Successful after 1 attempt. Resumed current IVF of NS and regulated @100 per hour. Will observe for any signs of infiltration.
--- NOTE | 2018-10-14 16:28 | NUR ---
Pain Meds/Wound Photos given at this time, educated patient regarding meds, verbalized understanding, tolerated well, IV site patent, wound care photos taken, no other needs at this time, educated patient on use of call light for assistance, verbalized understanding, call light and bedside table within reach, will continue to monitor patient
[2018-10-14] MEDS: LORazepam 2 MG/ML VIAL IVP PRN ×2 (17:04→20:11)
[2018-10-14 17:11] VITALS: BP_SYST 155
--- NOTE | 2018-10-14 17:11 | NUR ---
Ativan administered for anxiety, educated patient regarding med, verbalized understanding, IV site remains patent, no other needs at this time, educated patient on use of call light for assistance, verbalized understanding, call light and bedside table within reach, will continue to monitor patient
--- NOTE | 2018-10-14 18:21 | NUR ---
Dr. Slater Rounds at this time, will follow through with MD martinez
[2018-10-14] MEDS ORDERED: EXCEDRIN EXTRA STRENGTH PO PRN (18:45)
--- NOTE | 2018-10-14 18:58 | NUR ---
Closing Note patient resting in bed, awake and alert, complaining of pain, pain medication was administered, IV site remains patent, safety precautions remain in place, call light and bedside table left within reach, room close to station, will endorse to manager shift nurse
[2018-10-14 19:50] VITALS: BP_SYST 139
[2018-10-14] MEDS ORDERED: ATORVASTATIN 20 MG TABLET PO SCH (20:00)
[2018-10-14] MEDS: GABAPENTIN 300 MG CAPSULE PO SCH (20:16)
--- NOTE | 2018-10-14 20:36 | NUR ---
Opening notes/Pain mgmt Pt AAOx3, anxious, pt c/o Left hip pain 10/. VSS, afebrile. Medicated with Dilaudid 1mg slow IVP as needed R forearm 22G. Call light within reach. Repositioned. Bed alarm on. To monitor.
--- NOTE | 2018-10-14 22:30 | NUR ---
Gonzalez catheter insertion Pt alert, awake, explained to pt indication for gonzalez catheter, pt verbalized understanding. Pericare/hygiene provided. Inserted 16F gonzalez catheter via aseptic technique. 550ml Dark peng urine noted immediately. Securement place. Urine sample sent to lab. Pt tolerated fairly, will medicate for c/o pain. To monitor.
--- NOTE | 2018-10-14 22:44 | NUR ---
Pain mgmt Pt medicated for c/o L. hip pain, Dilaudid 1mg IVP as needed. R. FA 22G clear, patent. Call light within reach. Bed alarm on. To monitor.
[2018-10-14 23:19] LABS: BILIRUBIN,URINE 1+ (NEGATIVE); CLARITY/URINE CLEAR (CLEAR); COLOR,URINE YELLOW (YELLOW); GLUCOSE,URINE NEGATIVE (NEGATIVE); KETONES,URINE NEGATIVE (NEGATIVE); LEUKOCYTE ESTERASE ,URINE NEGATIVE (NEGATIVE); NITRITE, URINE NEGATIVE (NEGATIVE); PROTEIN URINE NEGATIVE (NEGATIVE); UROBILINOGEN,URINE 0.2 (0.2-1.0)
[2018-10-14 23:21] LABS: BLOOD, URINE TRACE (NEGATIVE)
[2018-10-14 23:28] LABS: BACTERIA,URINE FEW /HPF (None Seen); WBC,URINE 0-3 /HPF (0-3)
[2018-10-15] MEDS: HYDROmorphone 2 MG/ML VIAL IVP PRN ×9 (00:36→22:30)
--- NOTE | 2018-10-15 01:25 | NUR ---
Rounds Pt asleep at this time, no s/s distress noted. O2 95% on O2 2L via NC. Bed alarm on. Call light within reach. To monitor.
[2018-10-15] MEDS: LORazepam 2 MG/ML VIAL IVP PRN ×5 (01:54→20:03)
--- NOTE | 2018-10-15 01:54 | NUR ---
Ativan Pt awake, yelling in pain. Pain med not due at this time. Medicated with Ativan 1mg slow IVP as needed. O2 2L on via NC 98% BP 147/111 HR 96 RR 18. Call light within reach. Safety measures in place. To monitor.
[2018-10-15 02:00] VITALS: BP_SYST 147
--- NOTE | 2018-10-15 02:40 | NUR ---
Received Call from Dr. Russell to keep pt NPO for surgery tomorrow.
--- NOTE | 2018-10-15 03:37 | NUR ---
Pain mgmt Pt alert, awake, yelling c/o severe L. hip pain, medicated pt with Dilaudid 1mg slow IVP as needed. Encouraged pt to do deep breathing exercise, pt demonstrated understanding. O2 sat 98% on 2L nasal cannula. Safety measures in place. CAll light within reach. To monitor.
--- NOTE | 2018-10-15 05:03 | NUR ---
Rounds Pt sound asleep at this time. No s/s distress. IVF infusing as ordered R. FA no s/s infiltration noted. NPO. Call light within reach. Will continue to monitor.
--- NOTE | 2018-10-15 06:00 | NUR ---
Closing notes Pt awake, alert, moaning in pain. Pt c/o 9/10 L hip pain. Medicated with Dilaudid 1mg slow IVP R. forearm 22G no s/s infiltration. Pt saturation 96% on O2 2L via NC. Encouraged pt to do deep breathing exercises, pt demonstrated understanding. IV fluid infusing as ordered. Pt repositions with use of Trapeze. R. leg SCD in place. Call light within reach. Bed alarm on. To endorse to dayshift RN.
[2018-10-15 06:50] LABS: BASOPHILS % (AUTO) 0.5 % (0.0-2.0); EOSINOPHILS # (AUTO) 0.7 K/uL (0.0-0.4); EOSINOPHILS % (AUTO) 8.5 % (0.0-4.0); HEMATOCRIT 35.5 % (36-48); HEMOGLOBIN 11.5 g/dL (12.0-16.0); LYMPHOCYTES # (AUTO) 1.7 K/uL (1.0-5.5); LYMPHOCYTES % (AUTO) 20.8 % (20.5-51.5); MEAN CORPUSCULAR HEMOGLOBIN 28 pg (27-31); MEAN CORPUSCULAR HGB CONC 32 % (32-36); MEAN CORPUSCULAR VOLUME 88 fL (79.0-98.0); MONOCYTES # (AUTO) 0.6 K/uL (0.0-1.0); MONOCYTES % (AUTO) 7.2 % (1.7-9.3); NEUTROPHILS # (AUTO) 4.9 K/uL (1.8-7.7); PLATELET COUNT (AUTO) 426 K/uL (130-430); RED BLOOD CELL COUNT(AUTO) 4.05 MIL/uL (4.2-6.2); RED CELL DISTRIBUTION WIDTH 15.2 % (9.0-15.0); WHITE BLOOD COUNT (AUTO) 7.9 K/uL (4.8-10.8)
[2018-10-15 07:00] LABS: INR 1.2 (0.8-1.2)
[2018-10-15 07:05] LABS: CREATININE 0.46 mg/dL (0.55-1.30); POTASSIUM 3.6 mmol/L (3.5-5.1)
[2018-10-15 07:13] LABS: ALBUMIN 2.1 g/dL (3.4-4.8); TOTAL BILIRUBIN 0.3 mg/dL (0.0-1.0)
[2018-10-15 08:14] VITALS: BP_SYST 165
--- NOTE | 2018-10-15 08:15 | NUR ---
am assessment received pt in bed. a/x4.c/o of left hip pain 06/15. medicated with dilaudid 1 mg as ordered. res even and unlabored. . vitals stable. educated pt on pain management. pt verbalized understanding. . safety and fall precautions maintained. needs attended. ivf infusing well. no s/sof infiltration noted. poc discussed with pt verbalized understanding.repositioned with optical instrument assembly supervisor.offered wound care to pt left arm . pt refused wound care she stated i dont want my arm to be wrapped up . wll continue to monitor
[2018-10-15] MEDS: NACL 0.9% 1,000 ML IV SCH ×2 (08:19→21:52)
[2018-10-15] MEDS: ATORVASTATIN 20 MG TABLET PO SCH (09:00)
[2018-10-15] MEDS: GABAPENTIN 300 MG CAPSULE PO SCH ×3 (09:00→21:40)
[2018-10-15] MEDS: amLODIPine BESYLATE 10 MG TABLET PO SCH (09:00)
--- NOTE | 2018-10-15 10:43 | NUR ---
pain pt c/o left hip pain06/06. medicated with dilaudid 1 mg as ordered. educated pt on pain med, needs attneded. ice pack applied to left hip foe pain relieve and comfort. assisted pt to use call light for assistance. pt verbalized understanding.will continue to monitor
[2018-10-15 13:00] VITALS: BP_SYST 161
[2018-10-15] MEDS ORDERED: ONDANSETRON HCL 4 MG/2 ML VIAL IVP PRN (13:30)
[2018-10-15] MEDS ORDERED: KETOROLAC TROMETHAMINE 60 MG/2 ML VIAL IM PRN (13:30)
[2018-10-15] MEDS ORDERED: NALBUPHINE HCL 10 MG/ML AMP IVP PRN (13:30)
[2018-10-15] MEDS ORDERED: NALOXONE HCL 0.4 MG/ML AMP (NARCAN) IVP PRN ×2 (13:30)
[2018-10-15] MEDS ORDERED: MORPHINE SULFATE 10MG/10ML PF AMP SP SCH (13:30)
[2018-10-15] MEDS ORDERED: fentaNYL CITRATE/PF 100 MCG/2 ML AMP IVP PRN ×2 (13:30)
[2018-10-15] MEDS ORDERED: MIDAZOLAM HCL 5 MG/5 ML VIAL IVP ONE (14:30)
[2018-10-15] MEDS ORDERED: MIDAZOLAM HCL 2 MG/2 ML VIAL (VERSED) ONE (14:31)
[2018-10-15 14:45] VITALS: BP_SYST 121
--- NOTE | 2018-10-15 15:09 | NUR ---
Post OP: Patient is back from OR after left hip ORIF with a dressing and small drainage<blood>. T=96.5, RI=87,RR=16, QP=477/71,SAT o2=99% with room air. Dunn catheter is in place with clear yellow urine, SCDs are both legs, left leg is elevated with a pillow.
--- NOTE | 2018-10-15 15:14 | NUR ---
Arm pain: Patient after came back from OR complaints of severe left arm pain. Give 1 mg IVP Dilaudid as PRN ordered. Will continue monitor closely.
--- NOTE | 2018-10-15 15:30 | NUR ---
NOTES PT STILL C/O OF ARM PAIN. MEDICATED EARLIER WITH PAIN MED ORDERED. LEFT FOOT TOES BRISK CAP REFILL. PEDAL PULSE PALPABLE. PT IS WIGGLING HER LEFT LEG TOES. LEFT HIP DRESSING INTACT WITH MINIMAL BLEEDING NOTED. LEFT LEG ELEVATED ON PILLOW. NEUROVASCULAR CHECK WNL. CIRCULATION WNL. WILL CONTINUE TO MONITOR
--- NOTE | 2018-10-15 15:50 | NUR ---
CALLED CALLED DR MELÉNDEZ . DR BARNEY SALES ESTIMATOR CALLED BACK .ONFORMED ABOUT PT' SKIN LESIONS THAT PT HAVING PAIN IN HER LEFT ARM . ASKED FOR TOPICAL CREAM . DR BARNEY STATED SHE CANT ORDER UNTIL SHE SEES PT. DR BARNEY ORDERED ID CONSULT FOR DR RIZO .DR BARNEY STATED SHE WILL COME AND SEE PT TODAY
--- NOTE | 2018-10-15 16:32 | NUR ---
CONSULT ID SKIN LESION DR CAMARENA [phone] S/W KHOI VICK
--- NOTE | 2018-10-15 16:51 | NUR ---
Case mgt: S/W sister Brenden on the phone--pt in OR--per sister pt uses [facility] for sciatic on hip/leg--independent with bathing and dressing--I explained pt will require SNF for PT following surgery--multiple SNF pamphlets left at bedside and sister is coming up later today to see pt and will discuss snf with pt. I explained pt has choice of vendor for Medicare facility [facility]
--- NOTE | 2018-10-15 17:30 | NUR ---
notes pt continuously c/o of pain all over body agitated. medicated with pain med as ordered.ivf infusing well. vitals stable neurovascular left leg wnl. able to wiggle toes. repositioned with pillows. will continue to monitor
[2018-10-15] MEDS: DIPHENHYDRAMINE INJ 50 MG/ML VIAL IVP PRN ×2 (17:37→21:41)
[2018-10-15 18:36] VITALS: BP_SYST 137
--- NOTE | 2018-10-15 19:00 | NUR ---
AGITATATION PT IS AGITATED. C/O OF PAIN. PT REMOVED HER L HIP DRESSING .LEFT HIP INCISION RE DRESSED COVERED WITH ABD PAD AND TRANSPARENT DRESSING APPLIED WITH AN NURSE.. PT TOLRATED WELL. DR FARR AT NURSES STATION UPDATED WITH PT CONDITION.
--- NOTE | 2018-10-15 19:10 | NUR ---
OPENING NOTE Bedside report received from dayshift nurse. Patient received lying in bed, screaming, stating she is hurting all over. Patient made aware that pain medication will be administered per PRN order, patient verbalized understanding. IVF infusing, IV site shows no signs of infiltration or infection. SCDs attached and operating. Dunn attached, secured, and draining by gravity. Dressing on left hip intact, clean and dry, changed by day shift nurse. Call light with patient. Bed alarm on. Bed is locked and at lowest position. Will continue to monitor.
--- NOTE | 2018-10-15 19:17 | NUR ---
SPOKE WITH DR STARK:DRESSING REMOVED/REPLACED MD made aware that patient removed dressing and has been replaced with abdominal dressing and secured with transparent dressing.
--- NOTE | 2018-10-15 19:17 | NUR ---
PAGED Dr. Russell [phone], s/w Cee.
--- NOTE | 2018-10-15 19:30 | NUR ---
DR BARNEY AT BEDSIDE Dr. Barney at bedside assessed patient. Dr. Madrigal inputted new orders, will carry out.
[2018-10-15 20:00] VITALS: BP_SYST 135
[2018-10-15] MEDS: HYDROCORTISONE SOD SUCC 100 MG/2 ML VIAL IVP SCH ×2 (20:46→20:48)
--- NOTE | 2018-10-15 21:01 | NUR ---
PAGED Dr. Juliette Barber [phone], s/w Cee.
--- NOTE | 2018-10-15 21:24 | NUR ---
OFELIA MENCHACA New page Dr. Juliette Barber (clarification of orders) [phone], s/w Marian
--- NOTE | 2018-10-15 21:30 | NUR ---
AGITATED Patient pulled off her dressing on surgical site and is now attempting to pull out her gonzalez. New dressing placed on surgical site. Will inform
--- NOTE | 2018-10-15 21:40 | NUR ---
SPOKE WITH DR SAVITA Barber made aware that patient removed dressing at surgical site again and is now pulling her gonzalez out. ordered Haldo 0.5 mg IM one time. Will carry out order.
[2018-10-15] MEDS: CEFAZOLIN 1 GM IVPB PREMIX 50 ML IV SCH (21:41)
[2018-10-15] MEDS: BACITRACIN/POLYMYXIN B SULFATE 30 GM TOPICAL OINT. TP SCH (21:41)
[2018-10-15] MEDS ORDERED: HALOPERIDOL LACTATE 5 MG/ML VIAL IM ONE (21:45)
--- NOTE | 2018-10-15 23:00 | NUR ---
ROUNDS Patient in bed, sleeping at this time. No s/s of acute distress noted. Breathing even and unlabored. IVF infusing well. Dunn attached, secured, and draining by gravity. Call light with patient. Bed alarm on. Will continue to monitor.
[2018-10-16] VITALS (7 sets, daily range): BP systolic 117–156
--- NOTE | 2018-10-16 01:00 | NUR ---
WOUND DRESSING Wound dressing placed on bilateral upper arms. Patient tolerated procedure well. Call light with patient. Bed alarm on. Will continue to monitor.
[2018-10-16] MEDS: LORazepam 2 MG/ML VIAL IVP PRN ×5 (01:07→19:31)
--- NOTE | 2018-10-16 03:00 | NUR ---
PAIN/ITCHING Patient complained of pain and itching at this time. PRN medications to be administered. Will continue to monitor and reassess.
[2018-10-16] MEDS: NACL 0.9% 1,000 ML IV SCH ×3 (03:15→18:52)
[2018-10-16] MEDS: HYDROmorphone 2 MG/ML VIAL IVP PRN ×4 (03:15→18:44)
[2018-10-16] MEDS: DIPHENHYDRAMINE INJ 50 MG/ML VIAL IVP PRN (03:16)
--- NOTE | 2018-10-16 05:00 | NUR ---
ROUNDS Patient in bed sleeping. No signs of discomfort noted. Chest rise and fall even bilaterally. IVF infusing well. Call light with patient. Bed alarm on. Will continue to monitor.
[2018-10-16] MEDS: CEFAZOLIN 1 GM IVPB PREMIX 50 ML IV SCH (05:03)
[2018-10-16 05:58] LABS: BASOPHILS % (AUTO) 0.3 % (0.0-2.0); CALCIUM 8.6 mg/dL (8.4-11.0); CREATININE 0.36 mg/dL (0.55-1.30); EOSINOPHILS % (AUTO) 0.2 % (0.0-4.0); HEMATOCRIT 34.2 % (36-48); LYMPHOCYTES # (AUTO) 0.8 K/uL (1.0-5.5); LYMPHOCYTES % (AUTO) 8.4 % (20.5-51.5); MEAN CORPUSCULAR HEMOGLOBIN 28 pg (27-31); MEAN CORPUSCULAR HGB CONC 32 % (32-36); MEAN CORPUSCULAR VOLUME 88 fL (79.0-98.0); MONOCYTES # (AUTO) 0.4 K/uL (0.0-1.0); NEUTROPHILS # (AUTO) 8.4 K/uL (1.8-7.7); NEUTROPHILS % (AUTO) 87.1 % (40.0-70.0); PLATELET COUNT (AUTO) 399 K/uL (130-430); POTASSIUM 3.7 mmol/L (3.5-5.1); RED BLOOD CELL COUNT(AUTO) 3.89 MIL/uL (4.2-6.2); RED CELL DISTRIBUTION WIDTH 15.3 % (9.0-15.0); WHITE BLOOD COUNT (AUTO) 9.6 K/uL (4.8-10.8)
--- NOTE | 2018-10-16 06:24 | NUR ---
CLOSING NOTE Patient sleeping at this time. No s/s of acute distress noted. Breathing is even and unlabored. IVF infusing well. Dressing on left hip, bilateral upper arms intact, clean and dry. No signs of active bleeding noted. Heels offloaded with pillow. Trapeze available for bed mobility. Dunn attached, secured and draining by gravity. All needs met throughout shift. Fall and safety precautions maintained throughout shift. Will continue to monitor until patient care is endorsed to oncoming dayshift nurse.
[2018-10-16 07:05] LABS: TOTAL IRON BIND. CAPACITY 262 ug/dL (250-450)
--- NOTE | 2018-10-16 07:20 | NUR ---
AM ROUNDS: PATIENT LYING ON THE BED,SLEEPY/DROWSY.BEDSIDE REPORT GIVEN BY NIGHT NURSE YAJAIRA.IV PAIN MEDS WAS JUST GIVEN BY AN NURSE. O2 2L/NC ON. NO DISTRESS.LEFT HIP DRESSING CLEAN AND DRY.RIGHT HAND IVF INTACT. CALL LIGHT WITHIN REACH. BED LOCKED AT LOWEST POSITION. BED ALARM ON. CONDITION GUARDED.
[2018-10-16] MEDS: HYDROCORTISONE SOD SUCC 100 MG/2 ML VIAL IVP SCH ×2 (08:56→20:30)
[2018-10-16] MEDS: ATORVASTATIN 20 MG TABLET PO SCH (08:56)
[2018-10-16] MEDS: GABAPENTIN 300 MG CAPSULE PO SCH ×3 (08:56→20:30)
[2018-10-16] MEDS: amLODIPine BESYLATE 10 MG TABLET PO SCH (08:57)
[2018-10-16] MEDS: ENOXAPARIN SODIUM 40 MG/0.4 ML SYRINGE SUBCUT SCH (09:02)
[2018-10-16] MEDS: BACITRACIN/POLYMYXIN B SULFATE 30 GM TOPICAL OINT. TP SCH ×3 (09:03→20:32)
--- NOTE | 2018-10-16 09:29 | NUR ---
ATIVAN: DUE IV ATIVAN 1MG FOR AGITATION GIVEN PER REQUEST. NO ADVERSE REACTIONS NOTED.
--- NOTE | 2018-10-16 10:30 | NUR ---
RN ROUNDS: PATIENT SLEEPING DURING ROUNDS. NO DISTRESS.
--- NOTE | 2018-10-16 12:00 | NUR ---
RN ROUNDS: RESTING. NO DISTRESS. CALL LIGHT WITH IN REACH. BED LOCKED AT LOWEST POSITION. BED ALARM ON.
--- NOTE | 2018-10-16 14:30 | NUR ---
RN ROUNDS: SLEEPING DURING ROUNDS. NO NEEDS THIS TIME.
--- NOTE | 2018-10-16 15:46 | NUR ---
ATIVAN: PATIENT AGITATED AND DUE IV ATIVAN GIVEN PER REQUEST. NO ADVERSE REACTIONS THIS TIME.
--- NOTE | 2018-10-16 18:52 | NUR ---
IV PAIN MEDS: C/O LEFT HIP PAIN ,DUE IV PAIN MEDS GIVEN PER REQUEST. NO ADVERSE REACTION NOTED THIS TIME.
--- NOTE | 2018-10-16 19:10 | NUR ---
OPENING NOTE Late entry due to patient care. Bedside report received from dayshift nurse. Patient received lying in bed, agitated. Breathing is even and unlabored. IVF infusing well, IV site shows no signs of infiltration or infection. SCDs are off at this time per patient's refusal. Dunn attached, secured, and draining by gravity. Dressing on left hip, bilateral arms, intact, clean and dry.Call light with patient, instructed to call for any assistance, patient verbalized understanding. Bed alarm is on. Bed is locked and at lowest position. Will continue to monitor.
--- NOTE | 2018-10-16 19:25 | NUR ---
END OF SHIFT: REPORT GIVEN TO NIGHT NURSE YAJAIRA.PATIENT AGITATED,IV PAIN MEDS JUST GIVEN. NIGHT RN WILL F/U MEDS FOR AGITATION. PRACTICE GUIDELINES MET THROUGH OUT SHIFT.CALL LIGHT WITH IN REACH.BED LOCKED AT LOWEST POSITION.BED ALARM ON.
[2018-10-16] MEDS: HALOPERIDOL LACTATE 5 MG/ML VIAL IM PRN (20:38)
--- NOTE | 2018-10-16 20:38 | NUR ---
AGITATED Patient agitated at this time. Haldol administered per PRN order. Will continue to monitor and reassess.
[2018-10-16] MEDS ORDERED: SOD FERRIC GLUC COMPLEX/SUC 62.5 MG/5 ML VIAL (FERRLECIT) IV ONE (21:03)
[2018-10-16] MEDS: SOD FERRIC GLUC COMPLEX/SUC 125 MG in NS 100 ML IV SCH (21:26)
--- NOTE | 2018-10-16 22:27 | NUR ---
ROUNDS Patient in bed resting, eyes closed, appears to be asleep. No s/s of acute distress noted. Breathing is even and unlabored. IVF infusing well. Call light with patient. Bed alarm on. Will continue to monitor.
--- NOTE | 2018-10-17 | NUR ---
ROUNDS Patient in bed sleeping at this time. No signs of discomfort noted. Chest rise and fall even bilaterally. IVF infusing well. Dunn attached, secured, and draining by gravity. Call light with patient. Bed alarm on. Will continue to monitor.
[2018-10-17] MEDS: HYDROmorphone 2 MG/ML VIAL IVP PRN ×7 (01:18→21:14)
--- NOTE | 2018-10-17 01:18 | NUR ---
PAIN Patient woke up and complained of 8/10 bilateral lower extremity pain. Dilaudid administered per PRN order. Will continue to monitor and reassess.
[2018-10-17] MEDS: LORazepam 2 MG/ML VIAL IVP PRN ×6 (01:58→21:01)
--- NOTE | 2018-10-17 01:58 | NUR ---
AGITATED Patient agitated at this time. Patient continuously turning and complaining of pain on left hip. Ativan administered per PRN order.
--- NOTE | 2018-10-17 04:00 | NUR ---
PAIN Patient complained of 8/10 pain at this time. Patient made aware that Dilaudid will be administered per PRN order in 17 minutes, patient verbalized that she understands and will wait. Will continue to monitor and reassess.
--- NOTE | 2018-10-17 05:12 | NUR ---
ROUNDS Patient in bed sleeping at this time. No signs of discomfort at this time. Chest rise and fall even bilaterally. IVF infusing well. Call light with patient. Bed alarm on. Will continue to monitor.
[2018-10-17] MEDS: NACL 0.9% 1,000 ML IV SCH ×2 (05:30→18:19)
[2018-10-17 06:37] LABS: BASOPHILS % (AUTO) 0.3 % (0.0-2.0); EOSINOPHILS % (AUTO) 0.1 % (0.0-4.0); HEMATOCRIT 28.5 % (36-48); HEMOGLOBIN 9.3 g/dL (12.0-16.0); LYMPHOCYTES # (AUTO) 0.9 K/uL (1.0-5.5); LYMPHOCYTES % (AUTO) 10.7 % (20.5-51.5); MEAN CORPUSCULAR HEMOGLOBIN 29 pg (27-31); MEAN CORPUSCULAR HGB CONC 33 % (32-36); MEAN CORPUSCULAR VOLUME 88 fL (79.0-98.0); MONOCYTES # (AUTO) 0.4 K/uL (0.0-1.0); NEUTROPHILS # (AUTO) 7.3 K/uL (1.8-7.7); NEUTROPHILS % (AUTO) 83.9 % (40.0-70.0); PLATELET COUNT (AUTO) 322 K/uL (130-430); RED BLOOD CELL COUNT(AUTO) 3.25 MIL/uL (4.2-6.2); RED CELL DISTRIBUTION WIDTH 15.6 % (9.0-15.0); WHITE BLOOD COUNT (AUTO) 8.6 K/uL (4.8-10.8)
--- NOTE | 2018-10-17 06:37 | NUR ---
CLOSING/DAVEY REMOVED Patient in bed. Patient complaining of pain, ice offered to patient at this time, patient made aware that dilaudid per PRN order is available at 0717. Breathing even and unlabored. IVF infusing well, IV site shows no signs of infiltration or infection. Dressing on bilateral arms and left hip intact, clean and dry. Davey removed at this time per MD order, 2nd post op day to be removed. All needs met throughout shift. Fall and safety precautions maintained throughout shift. Will continue to monitor until patient care is endorsed to oncoming dayshift nurse.
[2018-10-17 06:53] LABS: CALCIUM 7.8 mg/dL (8.4-11.0); CREATININE 0.46 mg/dL (0.55-1.30); POTASSIUM 3.4 mmol/L (3.5-5.1)
[2018-10-17 07:55] VITALS: BP_SYST 156
--- NOTE | 2018-10-17 08:00 | NUR ---
Note Pt restless and agitated in bed. Pain medication given IVP and pt encouraged to eat some on her breakfast. Pt's left hip dressing CDI at this time. Neuro checks in left leg WNL at this time. IV in right hand intact and patent infusing IVF's at this time. Pt next to nurses' station for close observation. Call light within reach.
[2018-10-17] MEDS: ATORVASTATIN 20 MG TABLET PO SCH (08:18)
[2018-10-17] MEDS: amLODIPine BESYLATE 10 MG TABLET PO SCH (08:19)
[2018-10-17] MEDS: GABAPENTIN 300 MG CAPSULE PO SCH ×3 (08:19→21:05)
[2018-10-17] MEDS: BACITRACIN/POLYMYXIN B SULFATE 30 GM TOPICAL OINT. TP SCH ×3 (08:20→21:04)
[2018-10-17] MEDS: ENOXAPARIN SODIUM 40 MG/0.4 ML SYRINGE SUBCUT SCH (08:22)
--- NOTE | 2018-10-17 09:57 | NUR ---
Spoke with RN. Results of right foot X-ray is negative for fracture. Arthritic changes are indicated. Patient is allowed to weight bear on the right foot.
--- NOTE | 2018-10-17 10:00 | NUR ---
Note PT having difficulty working with pt at this time. Pt reluctant to move or sit up stating she is in pain, though pain medication and Ativan was given to pt. Pt still agitated and yelling out stating she is in pain and requests more and more, frequent pain and Ativan medications. Medications are all given on time and as scheduled all shift. Call light within reach.
[2018-10-17] MEDS: HALOPERIDOL LACTATE 5 MG/ML VIAL IM PRN (10:18)
--- NOTE | 2018-10-17 11:08 | NUR ---
DC PLANNING Went to speak w pt, pt sleeping. Per nurse not good time to speak w pt, just had pain med. Called & left msg w sister if decided on SNF preference. Addendum: 10/17/18 at 1405 by Sidra Mosquera RN Received call back from sister Sara, ph [phone], has no preference for SNF. She lives in [place] would prefer anywhere bet here & [place]. Called & discussed dc planning w Dr Benjamin, plan for dc to SNF tomorrow. States has no preference for SNF. Updated francois Farias community development planner. Addendum: 10/17/18 at 1548 by Sidra Mosquera RN Spoke w pt & sister Sara @ [facility], gave pamphlets for [facility], are agreeable w either of the 2SNF's. Pt agreeable as long as she can go out to smoke. Christie Farias.
[2018-10-17] MEDS ORDERED: DOXYCYCLINE HYCLATE 100 MG in D5W 100 ML IV ONE (11:15)
[2018-10-17 12:25] VITALS: BP_SYST 150
--- NOTE | 2018-10-17 14:20 | NUR ---
Discharge Planning: DCP faxed pt referral to [facility] (f [phone] p [phone]), [facility] (f [phone] p [phone]) DCP to follow up Addendum: 10/17/18 at 1441 by Dinora Phillips DP [facility] (f [phone] p [phone]) per Natalia will review and call with outcome DCP to follow up
[2018-10-17 15:44] VITALS: BP_SYST 143
--- NOTE | 2018-10-17 18:15 | NUR ---
Note Pt was checked on q1' and PRN all shift for needs and care. No SOB/resp distress noted at this time. Left hip dressing intact and dry all shift. No needs noted at this time. Pt has pulled out 2 IV's - had to be restarted 2X. Pt reluctant to move in bed. Pt has been given hygiene and bed bath 2X for incontinence in bed. Pt has been moaning/groaning all shift wanting more and more pain medications and Ativan before it was due. Pt was encouraged all shift to use IS q1' while awake. Pt refuses to do IS q1' and no needs at this time. Dilaudid IVP to be given now for pain. Call light within reach.
[2018-10-17 19:00] VITALS: BP_SYST 137
[2018-10-17 20:00] VITALS: BP_SYST 137
[2018-10-17] MEDS: DOXYCYCLINE HYCLATE 100 MG in D5W 100 ML IV SCH (21:06)
[2018-10-17] MEDS: SOD FERRIC GLUC COMPLEX/SUC 125 MG in NS 100 ML IV SCH (21:06)
[2018-10-18] MEDS: LORazepam 2 MG/ML VIAL IVP PRN ×4 (00:12→12:26)
[2018-10-18] MEDS: HYDROmorphone 2 MG/ML VIAL IVP PRN ×4 (00:14→09:36)
[2018-10-18 01:12] VITALS: BP_SYST 138
[2018-10-18] MEDS: NACL 0.9% 1,000 ML IV SCH (03:14)
--- NOTE | 2018-10-18 07:45 | NUR ---
INITIAL NOTE RECEIVED PATIENT FROM M1 ARMOR CREWMAN. PATIENT AWAKE IN BED. NO C/O PAIN AT THIS TIME. ROOM AIR. NO ACUTE DISTRESS. NO SOB. RESPIRATION EVEN AND UNLABORED. SKIN WARM AND DRY TO TOUCH. DRESSING NOTED TO LEFT HIP WITH NO BLEEDING NOTED. ALL NEEDS MET. BED IN LOW AND LOCKED POSITION. SIDERAIL UPX3. BED ALARM ON. ROOM NEAR NURSES STATION. PATIENT REF BILAT SCDs. CALL LIGHT IN REACH. CONT TO MONITOR
[2018-10-18 08:00] VITALS: BP_SYST 115
[2018-10-18] MEDS ORDERED: PREDNISONE 10 MG TABLET PO SCH (08:00)
[2018-10-18] MEDS: DOXYCYCLINE HYCLATE 100 MG in D5W 100 ML IV SCH (09:13)
[2018-10-18] MEDS: ATORVASTATIN 20 MG TABLET PO SCH (09:13)
[2018-10-18] MEDS: amLODIPine BESYLATE 10 MG TABLET PO SCH (09:13)
[2018-10-18] MEDS: GABAPENTIN 300 MG CAPSULE PO SCH ×2 (09:14→15:39)
[2018-10-18] MEDS: BACITRACIN/POLYMYXIN B SULFATE 30 GM TOPICAL OINT. TP SCH ×2 (09:14→15:39)
[2018-10-18] MEDS: ENOXAPARIN SODIUM 40 MG/0.4 ML SYRINGE SUBCUT SCH (09:15)
--- NOTE | 2018-10-18 09:27 | NUR ---
MEDS ALL DUE MEDS ADMINISTERED, DI WELL. IV INTACT AND PATENT, DI IV ATB WITH NO ASE NOTED AT THIS TIME. ALL NEEDS MET. CONT TO MONITOR
--- NOTE | 2018-10-18 10:00 | NUR ---
I.S. INSTRUCTED EXPLAINED TO PATIENT ON USE AND PURPOSE OF INCENTIVE SPIROMETER. PATIENT REFUSED AT THIS TIME. WILL ATTEMPT AGAIN. CONT TO MONITOR
--- NOTE | 2018-10-18 11:18 | NUR ---
Wound Evaluation: Late note for 1118 secondary to patient care. Wound Consult ordered by Dr. De Dios. Thank you, Dr. De Dios, for the consult. Patient received in a [place] bed, awake, alert, oriented. Skin is poor. Past medical history: Epidermolysis Bullosa, Hypertension, and DJD, sciatica, anxiety. She fell at her residence and was diagnosed with a left intertrochanteric femoral fracture with subsequent surgery postadmission and had an intramedullary hip screw fixation of the left hip. Recent labs: WBC 10.7, RBC 4.02, hemoglobin 11.4, hematocrit 35.2, potassium 3.2, BUN 9, creatinine 0.53, GFR 122, glucose 115, calcium 8.0, albumin 1.9, serum total protein 5.5. Microbiology: MRSA screen results negative. Intrinsic Factors that delay wound healing: Epidermolysis Bullosa, hypoalbuminemia, and Hyperglycemia. Extrinsic factors that decrease wound healing: decreased mobility. Primary goal is keeping wounds clean and covered to prevent infection and promote healing, and for comfort care. Explained goals to patient, but patient refused to have dressings as she feels they will stick to her bullae. Explained to patient that we would use non-adherent dressings, but she still refused dressings. Wound Assessment: 1) Left Upper Extremity: 2) Right Upper Extremity: 3) Left Posterior Lower Extremity: 4) Right Posterior Lower Extremity: 5) Total Back: 6) Buttocks: Multiple multiple areas of open bullae and scar tissue from Epidermolysis Bullosa. No odor, no drainage. Entire back area is erythematous. Recommend: Cleanse involved areas with normal saline. Gently pat dry. Put Apply Polysporin onto open lesions (daily if applying dressings, 3 times a day if no dressings applied). If patient allows dressings: Apply SurePrep onto susi-lesions. Cover with Oil Emulsion Dressings, then non-adherent pads. Loosely wrap with rosa maria wrap. Apply tape to gauze only, DO NOT APPLY TAPE TO SKIN. Perform site care daily, and as needed for dressing soiling or dislodgment. Also recommend: Encourage and assist patient as needed with reposition patient every two hours with pillow support, and off-load heels and pressure areas with pillows for pressure re-distribution. Do not allow patient to lie on her back. Perform skin care and monitor skin integrity q shift. Use moisture barrier cream on moisture susceptible areas qid and as needed for soiling.
[2018-10-18 11:24] VITALS: BP_SYST 107
--- NOTE | 2018-10-18 11:40 | NUR ---
SEEN AND EXAMINED BY AT BEDSIDE. CONT TO MONITOR
[2018-10-18] MEDS ORDERED: HYDROmorphone 2 MG/ML VIAL IVP PRN (11:45)
[2018-10-18] MEDS ORDERED: HYDROcodone/ACETAMIN 10-325 MG TAB PO PRN (11:45)
--- NOTE | 2018-10-18 12:06 | NUR ---
SPOKE TO REGARDING DRESSING CHANGE AND CLEARANCE FOR TRANSFER. PER PATIENT IS CLEARED TO BE TRANSFERRED; WEIGHT BEARING TO LEFT LEG TOLERATED AND DRY GAUZE DRESSING CHANGE PRN TO LEFT HIP INCISION.
[2018-10-18 12:37] LABS: BASOPHILS % (AUTO) 0.3 % (0.0-2.0); EOSINOPHILS # (AUTO) 0.2 K/uL (0.0-0.4); HEMATOCRIT 35.2 % (36-48); HEMOGLOBIN 11.4 g/dL (12.0-16.0); LYMPHOCYTES # (AUTO) 0.7 K/uL (1.0-5.5); LYMPHOCYTES % (AUTO) 6.6 % (20.5-51.5); MEAN CORPUSCULAR HEMOGLOBIN 28 pg (27-31); MEAN CORPUSCULAR HGB CONC 32 % (32-36); MEAN CORPUSCULAR VOLUME 88 fL (79.0-98.0); MONOCYTES # (AUTO) 0.2 K/uL (0.0-1.0); MONOCYTES % (AUTO) 1.5 % (1.7-9.3); NEUTROPHILS # (AUTO) 9.6 K/uL (1.8-7.7); NEUTROPHILS % (AUTO) 89.6 % (40.0-70.0); PLATELET COUNT (AUTO) 417 K/uL (130-430); RED BLOOD CELL COUNT(AUTO) 4.02 MIL/uL (4.2-6.2); RED CELL DISTRIBUTION WIDTH 15.4 % (9.0-15.0); WHITE BLOOD COUNT (AUTO) 10.7 K/uL (4.8-10.8)
--- NOTE | 2018-10-18 12:42 | NUR ---
PT NOTE Attempted multiple times to have patient participate with therapy, patient refused due to pain; patient is premedicated per nursing report and continues to refuse. will try again at another time.
[2018-10-18 12:46] LABS: ALBUMIN 1.9 g/dL (3.4-4.8); CREATININE 0.53 mg/dL (0.55-1.30); POTASSIUM 3.2 mmol/L (3.5-5.1); TOTAL BILIRUBIN 0.3 mg/dL (0.0-1.0)
--- NOTE | 2018-10-18 13:51 | NUR ---
SPOKE TO AND INFORMED MD THAT IS CLEARING PATIENT TO BE DISCHARGED TO SNF AND WANTS TO CONT PATIENT ON DOXYCYCLINE 100MG BID X2WKS WHEN DISCHARGED FROM HOSPITAL PER OKAY TO DISCHARGE PATIENT TO SNF WHEN BED AVAILABLE AND DOXYCYCLINE 100MG BID X2WKS
--- NOTE | 2018-10-18 14:00 | NUR ---
WOUND CARE DRESSING CHANGE DONE TO LEFT HIP INCISION. PATIENT DI WELL. PAULA NOTED. NO BLEEDING. NO DRAINAGE. NO ODOR NOTED. CLEANSED WITH NS. PAT DRY. COVERED WITH DRY GAUZE DRESSING. COVERED WITH TRANSPARENT DRESSING. CONT TO MONITOR
[2018-10-18] MEDS ORDERED: DOXY100T2 PO (14:54)
[2018-10-18 15:04] VITALS: BP_SYST 133
--- NOTE | 2018-10-18 15:28 | NUR ---
Discharge Planning: [facility] (f [phone] p [phone]) Rm 5A nurse to nurse [phone], DCP arranged transportation with [facility] ) 4:30pm P/U. Patient packet taken to nurse station.
--- NOTE | 2018-10-18 15:40 | NUR ---
PAIN PATIENT C/O 8/10 PAIN TO LEFT HIP; PATIENT REFUSE ICE PACK. REPOSITIONED FOR COMFORT. VITAL SIGN STABLE. DILAUDID ADMINISTERED ORDERED, DI WELL. CONT TO MONITOR
--- NOTE | 2018-10-18 15:50 | NUR ---
REPORT REPORT GIVEN TO BERYL SCHAFER. PATIENT GOING TO ROOM 5A. TO BE P/U BY [facility] AT 1730 PER BERYL ZHENG D.O.N. WANTS PATIENT TO RECEIVE A STOOL SOFTENER BEFORE DISCHARGE DUE TO LAST BM 10/14/18; WILL PAGE
[2018-10-18 16:00] VITALS: BP_SYST 133
--- NOTE | 2018-10-18 16:00 | NUR ---
PAGED UNDERGROUND MINER FOR ; AWAITING FOR CALL BACK
--- NOTE | 2018-10-18 16:48 | NUR ---
OFELIA HER BRICK POINTER FOR ; AWAITING FOR CALL BACK Addendum: 10/18/18 at 1649 by Анна Carmichael RN NOT
--- NOTE | 2018-10-18 16:56 | NUR ---
SPOKE TO AND RECEIVED ORDER FOR DULCOLAX 10MG PO X1 DOSE NOW; ORDER CLARIFIED AND VERIFIED WITH .
[2018-10-18] MEDS ORDERED: BISACODYL 5 MG TABLET.DR (DULCOLAX) PO ONE (17:00)
[2018-10-18] MEDS ORDERED: DOXYCYCLINE HYCLATE 100 MG CAPSULE PO ONE (17:15)
--- NOTE | 2018-10-18 17:15 | NUR ---
DULCOLAX ADMINISTERED ORDERED, DI WELL. ALL NEEDS MET. CONT TO MONITOR. CALL LIGHT IN REACH
--- NOTE | 2018-10-18 17:50 | NUR ---
HOME MEDS GIVEN TO EMT TO GIVE TO NURSE AT [facility]; PATIENT MADE AWARE
--- NOTE | 2018-10-18 18:01 | NUR ---
PT TRANSFERRED Report given to BERYL SCHAFER at [facility]. Transfer packet with Transfer Orders and Medication Reconciliation form given to EMT with report. Exitcare provided. [facility] ID band removed, replaced with ID band with pt's name and . IV catheter removed, intact and dressing applied, no active bleeding. All belongings sent with patient. Patient left floor via gurney escorted by EMT in no distress. SPOKE TO LIDIA FLORES, PT'S SISTER IN LAW, AND MADE AWARE PATIENT WAS BEING PICKED UP BY AMBULANCE FOR TRANSFER TO [facility].
[2018-10-19] MEDS ORDERED: DOXYCYCLINE HYCLATE 100 MG CAPSULE PO SCH (09:00)
== END 2018-10-18 18:00 | DRG 480 ==
LOC: SED 03:25 → SMU 06:20
PROVIDERS: ADMIT Internal Medicine; ATTEND Internal Medicine
PROC: 0QS704Z Reposition Left Upper Femur with Internal Fixation Device, Open Approach (ICD-10-PCS; principal; 2018-10-15 09:00)
DX: S72.142A Displaced intertrochanteric fracture of left femur, initial encounter for closed fracture (principal); E43 Unspecified severe protein-calorie malnutrition; L03.90 Cellulitis, unspecified; F41.9 Anxiety disorder, unspecified; G89.4 Chronic pain syndrome; M54.30 Sciatica, unspecified side; M19.90 Unspecified osteoarthritis, unspecified site; I10 Essential (primary) hypertension; L29.9 Pruritus, unspecified; Q81.9 Epidermolysis bullosa, unspecified; D64.9 Anemia, unspecified
CPT/HCPCS: 36415; 71045; 72170-TC; 72192-TC; 76000; 80048; 80053; 81000-TC; 83540-TC; 83550-TC; 85018-TC; 85025; 85610-TC; 85730-TC; 87081; 93005; 96360; 96372; 97530-GP; 99285; C1713; C1769; C9290; J0690; J1170; J1200; J1630; J1650; J1720; J1885; J2060; J2250; J2270; J2274; J2704; J2916; J3465; J3490; J7030; J7060; J7120; J7512

== ENCOUNTER 2018-12-14 09:44 | Emergency (ER) | payer OTHER, MEDICAID ==
[~2018-12-14] VITALS: Ht 157.5 cm; Wt 55.8 kg
[~2018-12-14 09:44] MED LIST changes: -CEPH-568 PO; +EXCED PO; -FLUC200T PO; +GABA-531 PO; +LIP40 PO; -MORP4SYR PO; -OXYC-158 PO; -PRED20TA PO; -TRAM50TA92 PO; -VITD2000 PO; -[UNRECOGNIZED DRUG - CODE] PO
--- NOTE | 2018-12-14 09:46 | NUR ---
Patient to ER bed 03 to gown for evaluation. Side rails up.
--- NOTE | 2018-12-14 09:47 | NUR ---
ER at bedside examining patient.
[2018-12-14 09:48] VITALS: BP_SYST 131
--- NOTE | 2018-12-14 09:50 | NUR ---
ER Dr. Edwards at bedside examining patient.
--- NOTE | 2018-12-14 09:50 | NUR ---
Pt c/o 04/15 chronic right leg pain and states she was on the way to pain management doctor but is unable to walk. Pt c/o tingling and tenderness in BLE. No other complaints or injuries per pt or noted.
--- NOTE | 2018-12-14 10:35 | NUR ---
patietn was found attempting to push the ambulance door open. security was called.
--- NOTE | 2018-12-14 10:36 | NUR ---
patient states "I'm going to be late! I want to smoke!"
[2018-12-14] MEDS: ONDANSETRON 4 MG ODT TAB PO ONE (11:04)
[2018-12-14] MEDS: MORPHINE 4 MG/ML INJ. SYRINGE IM ONE (11:05)
--- NOTE | 2018-12-14 11:17 | NUR ---
Dial a ride [phone] called, patient wishes to be sent to [address] [place] [address] Perla Frankel ETA 40 minutes.
--- NOTE | 2018-12-14 11:20 | NUR ---
patient requested to speak to Dr. Edwards. patient asked Dr. Edwards for more morphine. Dr. Edwards educated patient on narcotic overdose potential and respiratory depression. patient got up out of bed with a with stable gait and asked to leave. patient discharge paperwork was signed.
[2018-12-14 11:29] VITALS: BP_SYST 131
--- NOTE | 2018-12-14 11:29 | NUR ---
Patient given written and verbal discharge instructions and verbalizes understanding. ER MD discussed with patient the results and treatment provided. Patient in stable condition. ID arm band removed. No Rx given. Patient educated on pain management and to follow up with PMD. Pain Scale 0/10. Opportunity for questions provided and answered. Medication side effect fact sheet provided.
--- NOTE | 2018-12-14 11:30 | NUR ---
patient was found outside crying by engineering.
[2018-12-14] MEDS: LORazepam 1 MG TABLET PO ONE (11:35)
== END 2018-12-14 11:29 | disposition home or self-care (01) ==
LOC: SED 09:44
DX: F41.9 Anxiety disorder, unspecified (principal); G89.29 Other chronic pain; M54.30 Sciatica, unspecified side; I10 Essential (primary) hypertension; Z88.0 Allergy status to penicillin; Z88.6 Allergy status to analgesic agent; Z79.899 Other long term (current) drug therapy
CPT/HCPCS: 96372; 99284; J2270; Q0162; 99283

== ENCOUNTER 2019-04-19 00:57 | Emergency (ER) | payer OTHER, MEDICAID ==
[~2019-04-19] VITALS: Ht 157.5 cm; Wt 55.8 kg
[2019-04-19 01:19] VITALS: BP_SYST 140
[2019-04-19] MEDS ORDERED: MORPHINE 2 MG/ML INJ. SYRINGE IM ONE ×3 (03:15→05:00)
[2019-04-19] MEDS ORDERED: MORPHINE 2 MG/ML INJ. SYRINGE IVP ONE (04:00)
[2019-04-19 05:49] VITALS: BP_SYST 151
== END 2019-04-19 05:45 | disposition home or self-care (01) ==
LOC: SED 00:57
DX: S70.12XA Contusion of left thigh, initial encounter (principal); F41.9 Anxiety disorder, unspecified; Z88.0 Allergy status to penicillin; Z88.6 Allergy status to analgesic agent; I10 Essential (primary) hypertension; Z88.8 Allergy status to other drugs, medicaments and biological substances; W19.XXXA Unspecified fall, initial encounter; Y93.89 Activity, other specified; Y92.89 Other specified places as the place of occurrence of the external cause; Y99.8 Other external cause status
CPT/HCPCS: 72170; 73552; 73560; 96372; 99283; J2270

== ENCOUNTER 2019-09-04 23:34 | Emergency (ER) | payer OTHER, MEDICAID ==
[~2019-09-04] VITALS: Ht 157.5 cm; Wt 57.2 kg
[2019-09-04 23:40] VITALS: BP_SYST 124
--- NOTE | 2019-09-05 | NUR ---
Patient to ER bed 8 to gown for evaluation. Side rails up. Report given to JOSE STOCKTON.
--- NOTE | 2019-09-05 00:01 | NUR ---
PATIENT BROUGHT IN BLS FROM [facility] COMPLAINING OF UPPER ABDOMINAL PAIN WITH NAUSEA, VOMITING X 1 DAY. nO OTHER COMPLAINTS/INJURIES PER PATIENT OR NOTED. WILL CONTINUE TO MONITOR.
--- NOTE | 2019-09-05 00:22 | NUR ---
ER at bedside examining patient.
--- NOTE | 2019-09-05 00:25 | NUR ---
PATIENT REFUSES TO GIVE URINE. STATES "I HAVE NOTHING THERE."
[2019-09-05] MEDS ORDERED: MAG HYDROX/AL HYDROX/SIMETH 30 ML, DICYCLOMINE HCL 20 MG, LIDOCAINE VISCOUS 2% 15ML (PO... PO ONE ×3 (00:30)
--- NOTE | 2019-09-05 00:32 | NUR ---
Medicated per MD orders. Patient states " I want to speak to the doctor. I am having Sciatica pain. " MD notified
--- NOTE | 2019-09-05 01:15 | NUR ---
PATIENT STATES SHE CAN GIVE URINE SAMPLE NOW. PATIENT PLACED ON BEDPAN. PATIENT STARTS TO YELL AND SCREAM.
--- NOTE | 2019-09-05 01:25 | NUR ---
PATIENT YELLING AND SCREAMING STATING SHE NEEDS SOMETHING FOR PAIN. MD NOTIFIED AND WILL WAIT FOR LAB RESULTS PRIOR TO GIVING PAIN MEDICATION. PATIENT STATES THAT GI COCKTAIL DID NOT WORK. REQUESTING SOMETHING ELSE FOR PAIN. MD NOTIFIED.
[2019-09-05 01:32] LABS: BASOPHILS # (AUTO) 0.1 K/uL (0.0-0.2); BASOPHILS % (AUTO) 0.6 % (0.0-2.0); EOSINOPHILS % (AUTO) 0.2 % (0.0-4.0); HEMATOCRIT 49.4 % (36-48); HEMOGLOBIN 17.1 g/dL (12.0-16.0); LYMPHOCYTES # (AUTO) 1.7 K/uL (1.0-5.5); LYMPHOCYTES % (AUTO) 12.2 % (20.5-51.5); MEAN CORPUSCULAR HEMOGLOBIN 31 pg (27-31); MEAN CORPUSCULAR HGB CONC 35 % (32-36); MEAN CORPUSCULAR VOLUME 89 fL (79.0-98.0); MONOCYTES # (AUTO) 0.9 K/uL (0.0-1.0); MONOCYTES % (AUTO) 6.3 % (1.7-9.3); NEUTROPHILS # (AUTO) 11.4 K/uL (1.8-7.7); NEUTROPHILS % (AUTO) 80.7 % (40.0-70.0); PLATELET COUNT (AUTO) 414 K/uL (130-430); RED BLOOD CELL COUNT(AUTO) 5.53 MIL/uL (4.2-6.2); RED CELL DISTRIBUTION WIDTH 15.2 % (9.0-15.0); WHITE BLOOD COUNT (AUTO) 14.2 K/uL (4.8-10.8)
[2019-09-05 01:34] LABS: CALCIUM 9.2 mg/dL (8.4-11.0); CREATININE 0.62 mg/dL (0.55-1.30); POTASSIUM 3.2 mmol/L (3.5-5.1)
[2019-09-05 01:40] LABS: TOTAL BILIRUBIN 1.2 mg/dL (0.0-1.0)
[2019-09-05] MEDS ORDERED: fentaNYL CITRATE/PF 100 MCG/2 ML AMP IM ONE ×2 (02:00→05:30)
--- NOTE | 2019-09-05 02:07 | NUR ---
PATIENT MEDICATED WITH FENTANYL 75 MCG IM TO THE LEFT VENTRAL GLUTEAL. PATIENT TOLERATED WELL. WILL CONTINUE TO MONITOR.
--- NOTE | 2019-09-05 02:16 | NUR ---
PATIENT OFF UNIT TO CT SCAN.
--- NOTE | 2019-09-05 03:21 | NUR ---
report given to MAHIN Desai for continuation of care
--- NOTE | 2019-09-05 04:23 | NUR ---
Patient resting quietly in bed. No acute distress noted. Vital signs within normal range. Will continue to monitor.
--- NOTE | 2019-09-05 05:42 | NUR ---
Pt states 10/10 abdominal pain. Orders received. Pt medicated with 75 mcg of fentanyl IM given. Pt tolerated well. Will continue to monitor.
[2019-09-05 06:48] VITALS: BP_SYST 120
--- NOTE | 2019-09-05 06:48 | NUR ---
Patient given written and verbal discharge instructions and verbalizes understanding. ER MD Ashley discussed with patient the results and treatment provided. Patient in stable condition. ID arm band removed. Rx of norco given. Patient educated on pain management and to follow up with PMD. Pain Scale 0/10. Opportunity for questions provided and answered. Medication side effect fact sheet provided.
== END 2019-09-05 06:48 | disposition home or self-care (01) ==
LOC: SED 23:34
DX: K57.32 Diverticulitis of large intestine without perforation or abscess without bleeding (principal); G89.29 Other chronic pain; R10.13 Epigastric pain; I10 Essential (primary) hypertension; F41.9 Anxiety disorder, unspecified; M54.30 Sciatica, unspecified side; Z90.710 Acquired absence of both cervix and uterus; Z88.0 Allergy status to penicillin; Z88.6 Allergy status to analgesic agent; Z79.899 Other long term (current) drug therapy
CPT/HCPCS: 36415; 74176; 80053; 83690; 85025; 96372; 99284; J2001; J3010

== ENCOUNTER 2019-10-24 02:26 | Inpatient (IN) | payer OTHER, MEDICAID ==
[~2019-10-24] VITALS: Ht 157.5 cm; Wt 57.2 kg
[2019-10-24 02:33] VITALS: BP_SYST 108
--- NOTE | 2019-10-24 02:33 | NUR ---
Placed in room 8. Placed on calibration engineer, blood pressure machine and pulse oximeter. To gown for exam. Side rails up.
--- NOTE | 2019-10-24 02:35 | NUR ---
Patient was BIB BLS from [facility] c/o Abdominal pain and N/V. Pt states she vomited about 30 times. Pt states her sciatica is hurting now. Abdominal pain is intermittent. No other injuries/complaints per patient or noted.
[2019-10-24] MEDS ORDERED: NACL 0.9% 1,000 ML IV ONE ×2 (02:45→03:30)
--- NOTE | 2019-10-24 03:15 | NUR ---
ER Dr. Oates at bedside examining patient.
[2019-10-24 03:20] LABS: BASOPHILS # (AUTO) 0.1 K/uL (0.0-0.2); EOSINOPHILS # (AUTO) 0.1 K/uL (0.0-0.4); EOSINOPHILS % (AUTO) 0.3 % (0.0-4.0); HEMATOCRIT 48.3 % (36-48); HEMOGLOBIN 16.2 g/dL (12.0-16.0); LYMPHOCYTES # (AUTO) 2.4 K/uL (1.0-5.5); LYMPHOCYTES % (AUTO) 16.6 % (20.5-51.5); MEAN CORPUSCULAR HEMOGLOBIN 30 pg (27-31); MEAN CORPUSCULAR HGB CONC 34 % (32-36); MEAN CORPUSCULAR VOLUME 89 fL (79.0-98.0); MONOCYTES # (AUTO) 1.2 K/uL (0.0-1.0); MONOCYTES % (AUTO) 8.4 % (1.7-9.3); NEUTROPHILS # (AUTO) 10.8 K/uL (1.8-7.7); NEUTROPHILS % (AUTO) 73.7 % (40.0-70.0); PLATELET COUNT (AUTO) 456 K/uL (130-430); RED CELL DISTRIBUTION WIDTH 16.3 % (9.0-15.0); WHITE BLOOD COUNT (AUTO) 14.6 K/uL (4.8-10.8)
[2019-10-24] MEDS ORDERED: MORPHINE SULFATE 10 MG/5 ML ORAL SOL. UDC PO ONE (03:30)
[2019-10-24] MEDS ORDERED: ONDANSETRON HCL 4 MG/2 ML VIAL IVP ONE (03:30)
[2019-10-24 03:32] LABS: CALCIUM 8.5 mg/dL (8.4-11.0); CREATININE 0.64 mg/dL (0.55-1.30)
[2019-10-24 03:38] LABS: ALBUMIN 3.6 g/dL (3.4-4.8); TOTAL BILIRUBIN 0.7 mg/dL (0.0-1.0)
[2019-10-24 03:40] LABS: POTASSIUM 2.9 mmol/L (3.5-5.1)
[2019-10-24 03:44] LABS: BILIRUBIN,URINE NEGATIVE (NEGATIVE); BLOOD, URINE NEGATIVE (NEGATIVE); CLARITY/URINE CLEAR (CLEAR); COLOR,URINE YELLOW (YELLOW); GLUCOSE,URINE NEGATIVE (NEGATIVE); KETONES,URINE NEGATIVE (NEGATIVE); LEUKOCYTE ESTERASE ,URINE 1+ (NEGATIVE); NITRITE, URINE POSITIVE (NEGATIVE); PROTEIN URINE TRACE (NEGATIVE); UROBILINOGEN,URINE 0.2 (0.2-1.0)
[2019-10-24] MEDS ORDERED: MORPHINE SULFATE 10 MG/ML VIAL IVP ONE (03:45)
[2019-10-24 03:51] LABS: BACTERIA,URINE MANY /HPF (None Seen); YEAST,URINE Few /HPF (None Seen)
[2019-10-24] MEDS ORDERED: POTASSIUM CHLORIDE 20 MEQ TAB.PRT.SR PO ONE (04:30)
[2019-10-24] MEDS ORDERED: cefTRIAXone 1 GM IVPB PREMIX 50 ML IV ONE (04:30)
[2019-10-24] MEDS ORDERED: MAGNESIUM SULFATE 50 ML IV ONE (04:30)
[2019-10-24] MEDS ORDERED: KETAMINE 30 MG/3 ML SYRINGE IVP ONE (05:00)
[2019-10-24] MEDS ORDERED: LORazepam 2 MG/ML VIAL IVP ONE (05:00)
--- NOTE | 2019-10-24 05:30 | NUR ---
DR SILVA TO MARILYN PT MEDS GIVEN ORDEED PT UNCOOPERATIVE
--- NOTE | 2019-10-24 06:40 | NUR ---
DR SILVA TO MARILYN PT UNCOOPERATIVE
[2019-10-24] MEDS ORDERED: MORPHINE 4 MG/ML INJ. SYRINGE IVP ONE (06:45)
--- NOTE | 2019-10-24 06:55 | NUR ---
Medication reconciliation completed with information provided by pt at the bedside. Any prior medication reconciliation on file was reviewed and corrected.
--- NOTE | 2019-10-24 08:25 | NUR ---
IV Magnesium Sulfate was started by RN @ 1474, completed @ 0269
--- NOTE | 2019-10-24 08:50 | NUR ---
Patient will be admitted to care of [facility]. Admitted to MS unit. Will go to room 101B. Belongings list completed. Complete and up to date summary report printed. SBAR report to be given at bedside with opportunity for questions.
[2019-10-24 09:30] VITALS: BP_SYST 126
--- NOTE | 2019-10-24 09:30 | NUR ---
ADMISSION: The patient, NOÉ ANDERSON JANUARY, 69 y/o, F admitted by DINORAH MIJARES MD, was given written information regarding hospital policies, unit procedures and contact persons.Personal belongings checked and recorded.Oriented to call light.Safety measures rendered. Bed alarm on.
[2019-10-24] MEDS: MORPHINE 2 MG/ML INJ. SYRINGE IVP PRN ×3 (09:35→18:45)
--- NOTE | 2019-10-24 09:35 | NUR ---
IV INFILTRATED: LEFT AC IV INFILTRATED,REMOVED AND DRY GAUZE APPLIED,NO ACTIVE BLEEDING NOTED. IV RE SITED AT LEFT FOREARM USING G#22,DUE IV PAIN MEDS GIVEN PER REQUEST.NO PROBLEM.
[2019-10-24 12:00] VITALS: BP_SYST 132
--- NOTE | 2019-10-24 12:25 | NUR ---
SMOKING WAIVER: PATIENT SIGNED NON SMOKING CESSATION WAIVER FORM.TEACHINGS GIVEN TO PATIENT AND UNDERSTANDS THE INSTRUCTIONS GIVEN.
--- NOTE | 2019-10-24 12:32 | NUR ---
PAGED: CALLED DR MIJARES'S EXCHANGE AND SPOKE WITH LIV.WAITING FOR RESPONSE.
--- NOTE | 2019-10-24 14:06 | NUR ---
PAIN MEDS: C/O LOWER BACK PAIN,DUE IV MORPHINE 2MG IVP GIVEN PER REQUEST.NO ADVERSE REACTIONS NOTED.
--- NOTE | 2019-10-24 16:13 | NUR ---
RN ROUNDS: RESTING. NO NEEDS THIS TIME.
--- NOTE | 2019-10-24 16:56 | NUR ---
ATIVAN IV: DUE IV ATIVAN FOR ANXIETY PER PATIENT'S REQUEST. NO PROBLEM.
[2019-10-24] MEDS: LORazepam 2 MG/ML VIAL IVP PRN ×2 (16:58→21:56)
[2019-10-24 17:04] VITALS: BP_SYST 97
--- NOTE | 2019-10-24 18:40 | NUR ---
CLOSING NOTES: PATIENT IN STABLE CONDITION. CALL LIGHT WITH IN REACH. BED LOCKED AT LOWEST POSITION. CONTINUE TO MONITOR.
--- NOTE | 2019-10-24 19:49 | NUR ---
Initial note: Received report from dayshift RN. Patient is resting in bed, no acute distress. Even and unlabored respirations, tolerating room air. IV site presents without infiltration, saline locked. Call light with patient. Safety, fall precautions in place. Will continue with plan of care.
[2019-10-24 20:00] VITALS: BP_SYST 106
--- NOTE | 2019-10-24 22:02 | NUR ---
Anxiety: Patient complaining of anxiety. PRN Ativan 1 MG IV administered, no infiltration to IV site. Call light with patient. Will continue monitoring.
[2019-10-25 00:34] VITALS: BP_SYST 107
--- NOTE | 2019-10-25 01:09 | NUR ---
Rounds: Patient is sleeping in bed. No acute distress. Tolerating room air, even and unlabored breathing. Call light with patient. Will continue monitoring.
[2019-10-25] MEDS: MORPHINE 2 MG/ML INJ. SYRINGE IVP PRN ×5 (03:07→22:07)
--- NOTE | 2019-10-25 03:12 | NUR ---
Pain: Patient is awake, complaining of back pain. PRN Morphine 2 MG IV administered, no infiltration to IV site. Call light with patient. Will continue monitoring.
[2019-10-25] MEDS: LORazepam 2 MG/ML VIAL IVP PRN ×5 (04:07→23:20)
--- NOTE | 2019-10-25 04:10 | NUR ---
Anxiety: Patient complaining of anxiety. PRN Ativan 1 MG IV administered, no infiltration to IV site. Call light with patient. Will continue monitoring.
--- NOTE | 2019-10-25 06:24 | NUR ---
Closing note: Patient is sleeping comfortably in bed. No acute distress. Tolerating room air. IV site patent and intact. All needs met. Safety, fall precautions observed. Will endorse care to dayshift RN.
--- NOTE | 2019-10-25 08:00 | NUR ---
A/Ox3,vss,sleeping quietly in bed,needs attended,call light & personal items within pt reach,safety maintained.continue to monitor pt.
[2019-10-25 08:28] VITALS: BP_SYST 110
--- NOTE | 2019-10-25 09:00 | NUR ---
c/o pain in back,give morphine 2mg IV as prn order for pain.
--- NOTE | 2019-10-25 10:08 | NUR ---
pt c/o anxiety,give ativan 1 mg IV as prn order for anxiety.
--- NOTE | 2019-10-25 12:00 | NUR ---
escorted pt to patio for smoking via her w/c.no acute distress noted.vss,hourly rounds made,safety maintained.
[2019-10-25 13:00] VITALS: BP_SYST 123
--- NOTE | 2019-10-25 13:00 | NUR ---
pt c/o pain again,give morphine 2 mg IV as prn order for pain.
--- NOTE | 2019-10-25 14:00 | NUR ---
pt informed to go for smoke with staff company,but out of smoke again with her family company.
--- NOTE | 2019-10-25 15:00 | NUR ---
pt seeking meds for anxiety,ativan 1 mg IV given again per prn order.sleeping quietly in bed after meds given,refused vital sign.
--- NOTE | 2019-10-25 17:45 | NUR ---
and seen pt.increased and given morphine 3 mg IV as prn order for pain
--- NOTE | 2019-10-25 19:00 | NUR ---
pt crying for agitation,give ativan 1mg IV as prn order.report endorsed to shift superintendent staff.
--- NOTE | 2019-10-25 19:29 | NUR ---
Initial note: Received report from dayshift RN. Patient is resting in bed, no acute distress. Denies pain. Even and unlabored respirations, tolerating room air. IV site presents without infiltration, saline locked. Call light with patient. Safety, fall precautions in place. Will continue with plan of care.
[2019-10-25 20:00] VITALS: BP_SYST 108
--- NOTE | 2019-10-25 21:35 | NUR ---
Out to smoke: This RN accompanied patient to smoking area outside of hospital for patient to smoke. Patient made aware that this will be the only time tonight that she will be able to go outside. Patient verbalized understanding, stated that she will be fine until tomorrow afternoon.
--- NOTE | 2019-10-25 21:52 | NUR ---
Zachary Barber, [facility], honing machine operator semiautomatic for Dr. Slater s/w Veronica
--- NOTE | 2019-10-25 22:07 | NUR ---
Pain: Patient is awake, complaining of back pain. PRN Morphine 3 MG IV administered, no infiltration to IV site. Call light with patient. Will continue monitoring.
[2019-10-25] MEDS: ONDANSETRON HCL 4 MG/2 ML VIAL IVP PRN (22:22)
--- NOTE | 2019-10-25 23:20 | NUR ---
Anxiety: Patient complaining of anxiety. PRN Ativan 1 MG IV administered, no infiltration to IV site. Call light with patient. Will continue monitoring.
[2019-10-26 00:47] VITALS: BP_SYST 112
--- NOTE | 2019-10-26 01:57 | NUR ---
Incontinence care: Patient is incontinent of urine, incontinence care rendered. New blankets provided. Patient requesting to go outside at this time. Informed patient that it is neither safe nor reasonable to be outside at this time. Reminded her that this RN had taken her outside earlier. Call light with patient. Will continue monitoring.
[2019-10-26] MEDS: MORPHINE 2 MG/ML INJ. SYRINGE IVP PRN ×6 (02:10→20:19)
--- NOTE | 2019-10-26 02:10 | NUR ---
Pain: Patient is awake, complaining of back pain. PRN Morphine 3 MG IV administered, no infiltration to IV site. Call light with patient. Will continue monitoring.
[2019-10-26] MEDS: LORazepam 2 MG/ML VIAL IVP PRN ×3 (03:11→21:29)
--- NOTE | 2019-10-26 03:15 | NUR ---
Anxiety: Patient is awake and crying, saying that she needs to go outside. PRN Ativan 1 MG IV administered for anxiety, no infiltration to IV site. Call light with patient. Will monitor closely.
--- NOTE | 2019-10-26 03:49 | NUR ---
Smoking in room: Smelled smoke coming from patient's room. Patient denied smoking despite strong smell of smoke originating from her room. This RN, MAHIN Chau, and security personnel Toni performed thorough search of patient's belongings. Pack of cigarettes and asset administrator found and placed in nurses' station. Patient informed that she will have access to her cigarettes and asset administrator when she goes out to smoke during the day. Medication found in unlabeled black film canister, patient claims that it is Excedrin. Medication with patient label placed in patient-specific cubby in medication room. Patient was informed of the risks of smoking inside of a hospital. Call light with patient. Will monitor patient closely.
[2019-10-26] MEDS: ONDANSETRON HCL 4 MG/2 ML VIAL IVP PRN (06:10)
--- NOTE | 2019-10-26 06:11 | NUR ---
Pain: Patient is awake, complaining of back pain. PRN Morphine 3 MG IV administered, no infiltration to IV site. Call light with patient. Will continue monitoring.
--- NOTE | 2019-10-26 06:36 | NUR ---
Closing note: Patient is awake. No acute distress. Tolerating room air. IV site patent and intact. All needs met. Safety, fall precautions observed. Will endorse care to dayshift RN.
--- NOTE | 2019-10-26 07:58 | NUR ---
Opening note patient in room. agitated at this time because she wants to go out to smoke. educated patient that she cannot go outside alone to smoke and she needs to wait until staff available to take her outside. Patient started yelling and saying that she has not gone outside in 24 hours. reminded her that a staff took her last night. patient still agitated and took off gown and laid back in bed. bed in lowest position, bed alarm on, call light within reach, fall and safety precautions in place.
[2019-10-26 08:10] VITALS: BP_SYST 159
[2019-10-26 08:29] VITALS: BP_SYST 149
[2019-10-26 08:38] LABS: BASOPHILS % (AUTO) 0.7 % (0.0-2.0); EOSINOPHILS # (AUTO) 0.2 K/uL (0.0-0.4); EOSINOPHILS % (AUTO) 2.9 % (0.0-4.0); HEMATOCRIT 40.6 % (36-48); HEMOGLOBIN 13.3 g/dL (12.0-16.0); LYMPHOCYTES # (AUTO) 2.4 K/uL (1.0-5.5); LYMPHOCYTES % (AUTO) 35.8 % (20.5-51.5); MEAN CORPUSCULAR HEMOGLOBIN 30 pg (27-31); MEAN CORPUSCULAR HGB CONC 33 % (32-36); MEAN CORPUSCULAR VOLUME 91 fL (79.0-98.0); MONOCYTES # (AUTO) 0.5 K/uL (0.0-1.0); NEUTROPHILS # (AUTO) 3.5 K/uL (1.8-7.7); NEUTROPHILS % (AUTO) 52.6 % (40.0-70.0); PLATELET COUNT (AUTO) 300 K/uL (130-430); RED BLOOD CELL COUNT(AUTO) 4.45 MIL/uL (4.2-6.2); RED CELL DISTRIBUTION WIDTH 16.5 % (9.0-15.0); WHITE BLOOD COUNT (AUTO) 6.7 K/uL (4.8-10.8)
[2019-10-26 08:43] LABS: CALCIUM 8.2 mg/dL (8.4-11.0); CREATININE 0.52 mg/dL (0.55-1.30); POTASSIUM 3.4 mmol/L (3.5-5.1); TOTAL BILIRUBIN 0.6 mg/dL (0.0-1.0)
--- NOTE | 2019-10-26 10:04 | NUR ---
Nutrition Update Be Scale 18 noted. Pt admitted for intractable back pain. Diet: regular BMI: 23 kg/m2 RD to follow per nutrition care standards.
--- NOTE | 2019-10-26 10:15 | NUR ---
patient went out CORK INSULATION INSTALLER took patient out to smoke.
[2019-10-26 12:19] VITALS: BP_SYST 143
--- NOTE | 2019-10-26 12:24 | NUR ---
Round Patient is resting in bed. Patient has eye's closed, breathing easy and non-labored. Her sister is at the bedside. no signs of distress at this time.
--- NOTE | 2019-10-26 12:33 | NUR ---
CONSULTATION PAGED/CALLED Reason for Consultation: [] ESBL AND ECOLI Person Who was Notified: [] TK Consulting Physician: [] DR CAMARENA Nurse Coordinator Specialty: [] ID Ordering Physician: [] DR SOSA
[2019-10-26] MEDS ORDERED: POTASSIUM CHLORIDE 20 MEQ TAB.PRT.SR PO ONE (14:15)
--- NOTE | 2019-10-26 14:42 | NUR ---
CONSULTATION PAGED/CALLED Reason for Consultation: [] CHRONIC BACK PAIN Person Who was Notified: [] MORGAN Consulting Physician: [] DR Keysha CLAROS Electrical Machine Builder Specialty: [] PAIN MGMT Ordering Physician: [] DR SOSA
[2019-10-26] MEDS: GABAPENTIN 300 MG CAPSULE PO SCH ×2 (14:46→20:24)
--- NOTE | 2019-10-26 14:57 | NUR ---
Pain medication patient resting in bed and complaining of pain. educated on medication use. patient tolerated well. no signs of distress at this time.
--- NOTE | 2019-10-26 16:23 | NUR ---
Round patient resting in bed. patient eyes are close. breathing easy and non-labored. No signs of distress at this time.
[2019-10-26 17:19] VITALS: BP_SYST 138
--- NOTE | 2019-10-26 18:19 | NUR ---
Dr Daniels spoke to him about patient having penicillin allergy. ordered Invanz for patient, informed him that phamarcy wanted me to double verify with him about the order, said it was okay to give still.
--- NOTE | 2019-10-26 18:54 | NUR ---
CLOSING NOTE Patient resting in bed. no signs of distress noted at this time. patient is on contact precaution now for ESBL and E-COLI of the urine. patient has done in the morning. no other needs at this time. bed alarm on, bed in the lowest position, call light within reach, will endorse care to slot shift supervisor.
[2019-10-26 20:00] VITALS: BP_SYST 142
[2019-10-26] MEDS: ERTAPENEM SODIUM 0.5 GM in NS 50 ML IV SCH (20:29)
[2019-10-27 00:49] VITALS: BP_SYST 126
[2019-10-27] MEDS: MORPHINE 2 MG/ML INJ. SYRINGE IVP PRN ×6 (01:27→23:57)
[2019-10-27] MEDS: LORazepam 2 MG/ML VIAL IVP PRN ×4 (04:10→21:00)
--- NOTE | 2019-10-27 06:00 | NUR ---
RECEIVED REPORT @START OF SHIFT,ALERT WITH CONFUSION AND FORGETFULNESS,CONTACT ISOLATION FOR ESBL IN URINE, MEDICATED X'S 3 WITH MORPHINE 3MG IVP FOR C/O PAIN 06/15 IN BACK REQUESTED ATIVAN IVP X'S 2 FO INCREASED EPISODES OF ANXIETY, TOLERATES PO FLUIDS, SALINE LOCK PATENT INTACT IN RFA.# 20 G, ON ROOM AIR ,RESPIRATIONS EVEN AND UNLABORED, WILL ENDORSE TO ON COMING RN.,RESTED QUIETLY DURING THE SHIFT WITH NO OUTBRUSTS OF UNCONTROLLABLE YELLING.
[2019-10-27 07:11] LABS: BASOPHILS # (AUTO) 0.1 K/uL (0.0-0.2); BASOPHILS % (AUTO) 1.2 % (0.0-2.0); EOSINOPHILS # (AUTO) 0.2 K/uL (0.0-0.4); EOSINOPHILS % (AUTO) 3.1 % (0.0-4.0); HEMATOCRIT 39.2 % (36-48); HEMOGLOBIN 12.9 g/dL (12.0-16.0); LYMPHOCYTES # (AUTO) 1.7 K/uL (1.0-5.5); LYMPHOCYTES % (AUTO) 26.5 % (20.5-51.5); MEAN CORPUSCULAR HEMOGLOBIN 30 pg (27-31); MEAN CORPUSCULAR HGB CONC 33 % (32-36); MEAN CORPUSCULAR VOLUME 92 fL (79.0-98.0); MONOCYTES # (AUTO) 0.4 K/uL (0.0-1.0); MONOCYTES % (AUTO) 6.6 % (1.7-9.3); NEUTROPHILS % (AUTO) 62.6 % (40.0-70.0); PLATELET COUNT (AUTO) 286 K/uL (130-430); RED BLOOD CELL COUNT(AUTO) 4.25 MIL/uL (4.2-6.2); RED CELL DISTRIBUTION WIDTH 16.9 % (9.0-15.0); WHITE BLOOD COUNT (AUTO) 6.4 K/uL (4.8-10.8)
[2019-10-27 07:41] LABS: CALCIUM 8.1 mg/dL (8.4-11.0); CREATININE 0.49 mg/dL (0.55-1.30); PHOSPHORUS 4.7 mg/dL (2.7-4.5); POTASSIUM 3.9 mmol/L (3.5-5.1)
--- NOTE | 2019-10-27 08:00 | NUR ---
RECEIVED BEDSIDE REPORT, PATIENT IN BED, AAOX4 SKIN W/D TO TOUCH. IV SITE TO L FA, 22 GAUGE, WRAPPED W/ KERLIX. PATIENT VERBALIZES NO C/O PAIN OR DISCOMFORT @ PRESENT. NAD NOTED.
[2019-10-27 08:30] VITALS: BP_SYST 126
[2019-10-27] MEDS: ATORVASTATIN 20 MG TABLET PO SCH (08:42)
[2019-10-27] MEDS: GABAPENTIN 300 MG CAPSULE PO SCH ×3 (08:42→21:06)
[2019-10-27] MEDS: amLODIPine BESYLATE 10 MG TABLET PO SCH (08:42)
--- NOTE | 2019-10-27 10:20 | NUR ---
PATIENT REQUESTED PAIN MEDS, 05/16, THEN STATED SHE HAS TO GO SMOKE A CIGARETTE HELD IV MORPHINE, PENDING HER RETURN TO UNIT. PATIENT LEFT THE UNIT TO SMOKE WITH ASSIGNED VETERINARY POULTRY INSPECTOR @ 1020 AM.
--- NOTE | 2019-10-27 11:06 | NUR ---
New Physical Therapy order received, however, patient is outside smoking. Will attempt evaluation later.
--- NOTE | 2019-10-27 12:30 | NUR ---
PATIENT RETURNED TO THE UNIT, REQUESTING THE MORPHINE IVP, UPON ATTEMPTING TO FLUSH IV SITE PRIOR TO MED ADMINISTRATION, THE IV SITE WAS INFILTRATED. IV SITE D/C' d, NEW IV SITE: RIGHT HAND 20G, IVP PAIN MED GIVEN, PT TOLERATED WELL. NAD NOTED.
[2019-10-27 12:37] VITALS: BP_SYST 127
[2019-10-27] MEDS: ONDANSETRON HCL 4 MG/2 ML VIAL IVP PRN (15:44)
--- NOTE | 2019-10-27 16:00 | NUR ---
PATIENT OFF UNIT FOR SMOKING WITH STAFF ATTENDANT.
--- NOTE | 2019-10-27 16:20 | NUR ---
PATIENT RETURN TO UNIT FROM SMOKING WITH STAFF ATTENDANT.
[2019-10-27 16:35] VITALS: BP_SYST 123
--- NOTE | 2019-10-27 18:00 | NUR ---
1750 ON ROUNDS PATIENT ASLEEP. @ 1800 PATIENT DRUG SEEKING, ASKING WHEN PAIN MORPHINE MED IS DUE AGAIN, UNABLE TO STATE PAIN LEVEL. WILL CONT TO MONITOR FOR SAFETY AND PASS ON IN REPORT.
--- NOTE | 2019-10-27 19:30 | NUR ---
REPORT GIVEN TO 7 PM RN. PATIENT EXPECTING TO BE MEDICATED AT 1940. NAD NOTED. IN BED MOST OF SHIFT EXCEPT FOR SMOKING EPISODES.
[2019-10-27 19:45] VITALS: BP_SYST 129
--- NOTE | 2019-10-27 19:45 | NUR ---
Opening notes/Pain med Pt c/o pain 10/10 both lower extremities. Pt medicated with Morphine 3mg IVP as needed. VSS, no acute respiratory distress noted. Call light within easy reach. Bed low, locked, siderails up x2. To monitor.
[2019-10-27] MEDS: ERTAPENEM SODIUM 0.5 GM in NS 50 ML IV SCH (20:59)
[2019-10-27 23:20] VITALS: BP_SYST 112
--- NOTE | 2019-10-27 23:45 | NUR ---
IV restart IV restarted L. hand 22G via aseptic technique, flushes well with NS. IV R. FA dc'd catheter tip intact, no bleeding noted. Pt tolerated well.
--- NOTE | 2019-10-27 23:57 | NUR ---
Pain med Pt c/o pain 06/15 medicated with Morphine 3mg IVP L wrist 22G clear and patent. Pt asking for Ativan, informed pt Ativan is due in 1 hour. Call light within reach. Safety measures in place. To monitor.
[2019-10-28] MEDS: LORazepam 2 MG/ML VIAL IVP PRN ×4 (01:08→22:02)
[2019-10-28] MEDS: MORPHINE 2 MG/ML INJ. SYRINGE IVP PRN ×2 (06:28→11:43)
--- NOTE | 2019-10-28 06:30 | NUR ---
Closing notes/Pain med Pt asleep, easily arousable . No s/s distress noted. Pt c/o pain medicated with Morphine 3mg IVP PRN l. hand 22G clear and patent. Safety maintained. Pt turns in bed. Call light within reach. BEd low, locked, siderails up x2. To endorse to AM nurse.
--- NOTE | 2019-10-28 07:25 | NUR ---
AM ROUNDS: PATIENT SLEEPING DURING ROUNDS. IV SALINE LOCK AT LEFT HAND,DRESSING CLEAN AND DRY. CALL LIGHT WITH IN REACH.BED LOCKED AT LOWEST POSITION. CONTINUE TO MONITOR.
[2019-10-28 08:00] VITALS: BP_SYST 122
[2019-10-28] MEDS: ATORVASTATIN 20 MG TABLET PO SCH (08:41)
[2019-10-28] MEDS: amLODIPine BESYLATE 10 MG TABLET PO SCH (08:41)
[2019-10-28] MEDS: GABAPENTIN 300 MG CAPSULE PO SCH ×3 (08:41→20:30)
[2019-10-28 11:45] VITALS: BP_SYST 152
--- NOTE | 2019-10-28 13:05 | NUR ---
ATIVAN IV: DUE IV ATIVAN 1 MG IVP GIVEN PER REQUEST FOR ANXIETY
--- NOTE | 2019-10-28 13:30 | NUR ---
OUT TO SMOKE: FAMILY ACCOMPANIED PATIENT OUT TO SMOKE. THEN BACK AFTER 10MINS TO HER ROOM WITH FAMILY.
[2019-10-28 16:00] VITALS: BP_SYST 129
--- NOTE | 2019-10-28 16:20 | NUR ---
OUT TO SMOKE: FAMILY ACCOMPANIED PATIENT OUT TO SMOKE VIA WHEELCHAIR.BACK IN 10MINS TO HER ROOM IN STABLE CONDITION.
[2019-10-28] MEDS: MORPHINE 4 MG/ML INJ. SYRINGE IVP PRN ×2 (16:23→20:28)
--- NOTE | 2019-10-28 16:27 | NUR ---
PAIN MEDS: DUE IV MORPHINE GIVEN PER REQUEST. NO PROBLEM.
--- NOTE | 2019-10-28 17:56 | NUR ---
ATIVAN IV: IV ATIVAN 1MG IVP GIVEN PER PATIENT'S REQUEST FOR ANXIETY. NO ADVERSE REACTIONS THIS TIME.
--- NOTE | 2019-10-28 18:19 | NUR ---
CLOSING NOTES: STILL NEED TO BE SEEN BY AMANDA BEARDEN MD.F/U IN AM. SAFETY MEASURES RENDERED. CONTINUE TO MONITOR.
--- NOTE | 2019-10-28 18:26 | NUR ---
Patient requested to attempt therapeutic exercise on Wednesday.
[2019-10-28 19:30] VITALS: BP_SYST 100
--- NOTE | 2019-10-28 19:30 | NUR ---
INITIAL NOTES PATIENT IS LAYING IN BED AND STABLE. NO S/S OF RESPIRATORY DISTRESS NOTED. PATIENT SUCCESSFULLY DEMONSTRATES USAGE OF CALL LIGHT AT THIS TIME. BED IS LOCKED, ALARMED, AND AT THE LOWEST POSITION. FALL, SAFETY, ASPIRATION, RESPIRATORY, AND CONTACT PRECAUTIONS WILL BE IN PLACE THROUGHOUT THE SHIFT. PLAN OF CARE IS DISCUSSED WITH PATIENT AT THIS TIME.
[2019-10-28] MEDS: ERTAPENEM SODIUM 0.5 GM in NS 50 ML IV SCH (20:31)
--- NOTE | 2019-10-28 21:30 | NUR ---
PATIENT IS LAYING IN BED AND WATCHING TV. NO S/S OF RESPIRATORY DISTRESS NOTED. CALL LIGHT IN REACH. BED IS LOCKED, ALARMED, AND AT THE LOWEST POSITION.
--- NOTE | 2019-10-28 23:30 | NUR ---
PATIENT IS WATCHING TV AND STABLE. NO S/S OF RESPIRATORY DISTRESS NOTED. CALL LIGHT IN REACH. BED IS LOCKED, ALARMED, AND AT THE LOWEST POSITION.
[2019-10-29 00:10] VITALS: BP_SYST 130
--- NOTE | 2019-10-29 01:04 | NUR ---
PATIENT IS SLEEPING IN BED AND STABLE. NO S/S OF RESPIRATORY DISTRESS NOTED. CALL LIGHT IN REACH. BED IS LOCKED, ALARMED, AND AT THE LOWEST POSITION.
[2019-10-29] MEDS: MORPHINE 4 MG/ML INJ. SYRINGE IVP PRN ×5 (02:28→22:33)
--- NOTE | 2019-10-29 03:04 | NUR ---
PATIENT IS WATCHING TV AND STABLE. NO S/S OF RESPIRATORY DISTRESS NOTED. CALL LIGHT IN REACH. BED IS LOCKED, ALARMED, AND AT THE LOWEST POSITION.
[2019-10-29] MEDS: LORazepam 2 MG/ML VIAL IVP PRN ×4 (03:43→20:46)
--- NOTE | 2019-10-29 04:39 | NUR ---
PATIENT IS SLEEPING IN BED AND STABLE. NO S/S OF RESPIRATORY DISTRESS NOTED. CALL LIGHT IN REACH. BED IS LOCKED, ALARMED, AND AT THE LOWEST POSITION.
--- NOTE | 2019-10-29 06:20 | NUR ---
CLOSING NOTES PATIENT IS LAYING IN BED AND STABLE. NO S/S OF RESPIRATORY DISTRESS NOTED. CALL LIGHT IN REACH. BED IS LOCKED, ALARMED, AND AT THE LOWEST POSITION. FALL, SAFETY, CONTACT, ASPIRATION, AND RESPIRATORY PRECAUTIONS HAS BEEN IN PLACE THROUGHOUT THE SHIFT. WILL CONTINUE TO MONITOR UNTIL REPORT IS GIVEN/ENDORSED TO AM NURSE BY BEDSIDE.
--- NOTE | 2019-10-29 07:25 | NUR ---
AM ROUNDS: PATIENT SLEEPING DURING ROUNDS. UP DATES GIVEN BY NIGHT NURSE ELLE.CALL LIGHT WITH IN REACH. BED LOCKED AT LOWEST POSITION.NOT IN ANY DISTRESS.
[2019-10-29 08:38] VITALS: BP_SYST 106
[2019-10-29] MEDS: GABAPENTIN 300 MG CAPSULE PO SCH ×3 (08:41→20:46)
[2019-10-29] MEDS: ATORVASTATIN 20 MG TABLET PO SCH (08:41)
--- NOTE | 2019-10-29 08:47 | NUR ---
IV PAIN MEDS: C/O LOWER BACK PAIN,DUE IV MORPHINE GIVEN PER REQUEST. NO PROBLEM.
--- NOTE | 2019-10-29 12:15 | NUR ---
IV ATIVAN: DUE IV ATIVAN GIVEN PER REQUEST FOR ANXIETY. NO ADVERSE REACTIONS NOTED.
[2019-10-29 12:25] VITALS: BP_SYST 100
--- NOTE | 2019-10-29 13:35 | NUR ---
OUT TO SMOKE: PATIENT WENT OUT TO SMOKE WITH HER SISTER IN LAW LIDIA VIA WHEELCHAIR.SMOKING CESSATION WAIVER SIGNED AT THE CHART.
--- NOTE | 2019-10-29 15:33 | NUR ---
OUT TO SMOKE: PATIENT WENT OUT TO SMOKE,ACCOMPANIED BY H ER FAMILY.THEN BACK TO HER ROOM AFTER 10MINS.NO PROBLEM.
--- NOTE | 2019-10-29 16:05 | NUR ---
Iv Ativan: Due iv Ativan given per patient's request for anxiety. No problem.
[2019-10-29 16:07] VITALS: BP_SYST 137
[2019-10-29] MEDS: amLODIPine BESYLATE 10 MG TABLET PO SCH (16:09)
--- NOTE | 2019-10-29 18:26 | NUR ---
IV PAIN MEDS: DUE IV MORPHINE GIVEN PER PATIENT'S REQUEST FOR CHRONIC BACK PAIN. NO PROBLEM.
--- NOTE | 2019-10-29 18:54 | NUR ---
CLOSING NOTES: PATIENT COMFORTABLE THIS TIME. NO NEEDS THIS TIME.
[2019-10-29 19:20] VITALS: BP_SYST 104
--- NOTE | 2019-10-29 19:20 | NUR ---
INITIAL NOTES PATIENT IS STABLE AND LAYING IN BED. NO S/S OF RESPIRATORY DISTRESS NOTED. CALL LIGHT IN REACH. BED IS LOCKED, ALARMED, AND AT THE LOWEST POSITION. FALL, SAFETY, ASPIRATION, CONTACT, AND RESPIRATORY PRECAUTIONS WILL BE IN PLACE THROUGHOUT THE SHIFT. PLAN OF CARE DISCUSSED WITH THE PATIENT. PATIENT SUCCESSFULLY DEMONSTRATES USAGE OF CALL LIGHT.
[2019-10-29] MEDS: ERTAPENEM SODIUM 0.5 GM in NS 50 ML IV SCH (20:46)
--- NOTE | 2019-10-29 21:20 | NUR ---
PATIENT IS LAYING IN BED AND STABLE. NO S/S OF RESPIRATORY DISTRESS NOTED. CALL LIGHT IN REACH. BED IS LOCKED, ALARMED, AND AT THE LOWEST POSITION.
--- NOTE | 2019-10-29 23:20 | NUR ---
PATIENT IS LAYING IN BED AND STABLE. NO S/S OF RESPIRATORY DISTRESS NOTED. CALL LIGHT IN REACH. BED IS LOCKED, ALARMED, AND AT THE LOWEST POSITION.
[2019-10-30] VITALS: BP_SYST 114
--- NOTE | 2019-10-30 01:20 | NUR ---
PATIENT IS RESTING IN BED AND STABLE. NO S/S OF RESPIRATORY DISTRESS NOTED. CALL LIGHT IN REACH. BED IS LOCKED, ALARMED, AND AT THE LOWEST POSITION.
[2019-10-30] MEDS: MORPHINE 4 MG/ML INJ. SYRINGE IVP PRN ×4 (02:51→16:38)
--- NOTE | 2019-10-30 02:55 | NUR ---
WOUND CARE PERFORMED AT THIS TIME. PICTURES TAKEN OF THE RIGHT ARM. PATIENT REFUSED PICTURES OF THE LEFT ARM.
[2019-10-30] MEDS: LORazepam 2 MG/ML VIAL IVP PRN ×3 (04:01→14:07)
--- NOTE | 2019-10-30 04:55 | NUR ---
PATIENT IS RESTING IN BED AND STABLE. NO S/S OF RESPIRATORY DISTRESS NOTED. CALL LIGHT IN REACH. BED IS LOCKED, ALARMED, AND AT THE LOWEST POSITION.
--- NOTE | 2019-10-30 07:00 | NUR ---
CLOSING NOTES PATIENT IV CAME OUT AT THIS TIME, WILL ENDORSE TO MORNING NURSE. PATIENT IS STABLE. NO S/S OF RESPIRATORY DISTRESS. CALL LIGHT IN REACH. BED IS CLOCKED, ALARMED, AND AT THE LOWEST POSITION. FALL, SAFETY, ASPIRATION, CONTACT, AND RESPIRATORY PRECAUTIONS HAS BEEN IN PLACE THROUGHOUT THE SHIFT. REPORT ENDORSED TO AM NURSE.
[2019-10-30 08:00] VITALS: BP_SYST 135
--- NOTE | 2019-10-30 08:00 | NUR ---
Note Pt had new IV inserted in left AC 22g' by CHILD CARE CENTRE MANAGER at this time. No SOB/resp distress noted at this time. No needs noted at this time. Pt requested and was given Morphine IVP at this time. No needs noted at this time. Call light within reach.
[2019-10-30] MEDS: ATORVASTATIN 20 MG TABLET PO SCH (08:05)
[2019-10-30] MEDS: GABAPENTIN 300 MG CAPSULE PO SCH ×2 (08:05→15:59)
[2019-10-30] MEDS: amLODIPine BESYLATE 10 MG TABLET PO SCH (08:06)
--- NOTE | 2019-10-30 11:25 | NUR ---
Note Pt left the floor via wheelchair to the front of the hospital to smoke at 11am and returned to floor at this time. Pt back in bed at this time. No needs noted at this time. Call light within reach.
[2019-10-30 12:34] VITALS: BP_SYST 127
--- NOTE | 2019-10-30 14:25 | NUR ---
Note Pt requested and received her Ativan 1mg IVP. Pt now gone back to sleep. Denies any needs at this time. Call light within reach. Pt refused Physical Therapy this morning.
--- NOTE | 2019-10-30 15:03 | NUR ---
DC Planning: Per Dr. Barber, may discharge pt back to [facility]. RN please call the md for discharge medication. --MERON Jimenez made aware.
[2019-10-30] MEDS ORDERED: NITR-85 PO (15:53)
--- NOTE | 2019-10-30 16:15 | NUR ---
Note Pt was seen and assessed by Dr Barber at bedside, verbal discharge instructions were given. Questions/concerns were answered at this time. Call light within reach.
[2019-10-30 16:34] VITALS: BP_SYST 132
[2019-10-30 17:21] VITALS: BP_SYST 130
--- NOTE | 2019-10-30 17:45 | NUR ---
Note Pt dressed in street clothes and packed all her belongings with sister in law. Pt checked side table and drawers for belongings. Pt denies any SOB/resp distress or severe back pain/discomfort at this time. Pt stable at this time. Pt's IV in left AC dc'd, site benign. No bleeding/drainage/swelling/tenderness at site noted. Pt was checked on q1' and PRN all shift for needs and care. Pt was maintained with isolation and safety precautions all shift. Pt was given discharge instructions and questions/concerns were answered at this time.
--- NOTE | 2019-10-30 18:00 | NUR ---
Note Pt off the floor via wheelchair to private car with all belongings and discharge paperwork. Pt stable.
--- NOTE | 2019-11-02 15:22 | NUR ---
Discharge Follow Up Phone Call Phoned [facility], , and spoke with someone at the nurses' station. Patient is doing fine and has not requested assistance. Patient makes her own appointments.
== END 2019-10-30 17:00 | disposition home or self-care (01) | DRG 74 ==
LOC: SED 02:26 → SMU 07:05
PROVIDERS: ADMIT Internal Medicine; ATTEND Internal Medicine
DX: M54.10 Radiculopathy, site unspecified (principal); B37.49 Other urogenital candidiasis; Z16.12 Extended spectrum beta lactamase (ESBL) resistance; Z16.24 Resistance to multiple antibiotics; I10 Essential (primary) hypertension; B96.20 Unspecified Escherichia coli [E. coli] as the cause of diseases classified elsewhere; F17.210 Nicotine dependence, cigarettes, uncomplicated; G89.29 Other chronic pain; F41.9 Anxiety disorder, unspecified; M19.90 Unspecified osteoarthritis, unspecified site; E87.6 Hypokalemia; Z88.0 Allergy status to penicillin; Z79.899 Other long term (current) drug therapy; Z88.8 Allergy status to other drugs, medicaments and biological substances
CPT/HCPCS: 36415; 72100-TC; 80048; 80053; 81000-TC; 83605; 83690-TC; 83735-TC; 84100-TC; 84484; 85025; 87040-TC; 87086; 87186-TC; 93005; 96361; 96365; 96366; 96374; 96375; 99285; J0696; J1335; J2060; J2270; J2405; J3475

== ENCOUNTER 2019-12-19 20:47 | Emergency (ER) | payer OTHER, MEDICAID ==
[~2019-12-19] VITALS: Ht 157.5 cm; Wt 58.1 kg
[~2019-12-19 20:47] MED LIST changes: -DOXY100T2 PO; +NITR-85 PO
[2019-12-19] MEDS ORDERED: NACL 0.9% 1,000 ML IV ONE (20:48)
[2019-12-19 20:50] VITALS: BP_SYST 156
[2019-12-19] MEDS ORDERED: ONDANSETRON HCL 4 MG/2 ML VIAL IVP ONE (21:00)
[2019-12-19] MEDS ORDERED: MORPHINE 4 MG/ML INJ. SYRINGE IVP ONE ×3 (21:00→22:45)
[2019-12-19] MEDS ORDERED: methylPREDNISolone SOD SUCC/PF 62.5 MG/ML VIAL IVP ONE (21:00)
[2019-12-19] MEDS ORDERED: DIPHENHYDRAMINE INJ 50 MG/ML VIAL IVP ONE (21:00)
[2019-12-19] MEDS ORDERED: DIPHENHYDRAMINE INJ 50 MG/ML VIAL ONE (21:11)
[2019-12-19] MEDS ORDERED: methylPREDNISolone SOD SUCC/PF 62.5 MG/ML VIAL ONE (21:12)
[2019-12-19 21:29] LABS: BASOPHILS # (AUTO) 0.1 K/uL (0.0-0.2); BASOPHILS % (AUTO) 0.6 % (0.0-2.0); EOSINOPHILS # (AUTO) 0.1 K/uL (0.0-0.4); EOSINOPHILS % (AUTO) 1.1 % (0.0-4.0); HEMATOCRIT 48.4 % (36-48); HEMOGLOBIN 16.3 g/dL (12.0-16.0); LYMPHOCYTES % (AUTO) 18.6 % (20.5-51.5); MEAN CORPUSCULAR HEMOGLOBIN 30 pg (27-31); MEAN CORPUSCULAR HGB CONC 34 % (32-36); MEAN CORPUSCULAR VOLUME 90 fL (79.0-98.0); MONOCYTES # (AUTO) 0.8 K/uL (0.0-1.0); MONOCYTES % (AUTO) 7.2 % (1.7-9.3); NEUTROPHILS # (AUTO) 7.8 K/uL (1.8-7.7); NEUTROPHILS % (AUTO) 72.5 % (40.0-70.0); PLATELET COUNT (AUTO) 407 K/uL (130-430); RED BLOOD CELL COUNT(AUTO) 5.41 MIL/uL (4.2-6.2); RED CELL DISTRIBUTION WIDTH 16.8 % (9.0-15.0); WHITE BLOOD COUNT (AUTO) 10.7 K/uL (4.8-10.8)
[2019-12-19 22:00] LABS: CALCIUM 9.1 mg/dL (8.4-11.0); CREATININE 0.91 mg/dL (0.55-1.30); POTASSIUM 3.9 mmol/L (3.5-5.1)
[2019-12-19 22:01] LABS: ALBUMIN 4.2 g/dL (3.4-4.8); TOTAL BILIRUBIN 1.1 mg/dL (0.0-1.0)
[2019-12-19 22:19] LABS: INR 1.1 (0.8-1.2); PROTHROMBIN TIME 11.5 SECS (9.5-12.5)
[2019-12-19] MEDS ORDERED: DICYCLOMINE HCL 10 MG/5 ML SOLUTION PO ONE (23:45)
[2019-12-19 23:56] VITALS: BP_SYST 154
== END 2019-12-19 23:56 | disposition home or self-care (01) ==
LOC: SED 20:47
DX: G89.29 Other chronic pain (principal); M54.5 Low back pain; M19.90 Unspecified osteoarthritis, unspecified site; M48.00 Spinal stenosis, site unspecified; F41.9 Anxiety disorder, unspecified; Z90.49 Acquired absence of other specified parts of digestive tract; Z79.899 Other long term (current) drug therapy; Z88.0 Allergy status to penicillin; Z88.6 Allergy status to analgesic agent
CPT/HCPCS: 36415; 71045; 72100; 80053; 82150; 82550; 83605; 83690; 84484; 85025; 85610; 85730; 87040; 93005; 96374; 96375; 96376; 99285; J1200; J2270; J2405; J2930; J7030

== ENCOUNTER 2020-02-09 22:12 | Emergency (ER) | payer OTHER, MEDICAID ==
[~2020-02-09] VITALS: Ht 157.5 cm; Wt 49.9 kg
[2020-02-09 22:33] VITALS: BP_SYST 143
--- NOTE | 2020-02-09 22:38 | NUR ---
Patient to ER bed 7 to gown for evaluation. Side rails up.
--- NOTE | 2020-02-09 22:50 | NUR ---
Patient BIB EMS. C/O left leg pain today. Per reported, patient fell on 02/04/2020, X-ray -normal, Today started pain again. Hx COPD and HTN. (Sciatica per patient) A/O,X4, left leg pain, pain rate 9/10, no redness or swelling left leg, no SOB.
[2020-02-09] MEDS ORDERED: ACETAMINOPHEN 325 MG TABLET PO ONE (23:30)
--- NOTE | 2020-02-09 23:30 | NUR ---
Patient refused Tylenol PO medication, pain rate 05/16, Dr. Roberson notified.
--- NOTE | 2020-02-09 23:30 | NUR ---
ER Dr. Roberson at bedside examining patient.
[2020-02-09] MEDS ORDERED: MORPHINE 4 MG/ML INJ. SYRINGE IM ONE (23:45)
--- NOTE | 2020-02-10 00:24 | NUR ---
Patient came back from X-ray.
--- NOTE | 2020-02-10 01:30 | NUR ---
VSS no s/s of acute distress Resting on gurney rails up
[2020-02-10] MEDS ORDERED: MORPHINE 2 MG/ML INJ. SYRINGE IM ONE (02:30)
[2020-02-10 02:45] VITALS: BP_SYST 143
--- NOTE | 2020-02-10 02:45 | NUR ---
Patient given written and verbal discharge instructions and verbalizes understanding. ER MD discussed with patient the results and treatment provided. Patient in stable condition. ID arm band removed. Patient educated on pain management and to follow up with PMD. Pain Scale 0/10 Opportunity for questions provided and answered.
[2020-02-10] MEDS ORDERED: MORPHINE 2 MG/ML INJ. SYRINGE ONE (02:46)
== END 2020-02-10 02:45 ==
LOC: SED 22:12
DX: S70.12XA Contusion of left thigh, initial encounter (principal); F41.9 Anxiety disorder, unspecified; I10 Essential (primary) hypertension; Z88.0 Allergy status to penicillin; Z88.6 Allergy status to analgesic agent; Z79.899 Other long term (current) drug therapy; W18.39XA Other fall on same level, initial encounter; Y93.89 Activity, other specified; Y92.89 Other specified places as the place of occurrence of the external cause; Y99.8 Other external cause status
CPT/HCPCS: 72170; 73552; 73560; 73590; 96372 ×2; 99284; J2270 ×2

== ENCOUNTER 2020-06-07 15:13 | Inpatient (IN) | payer OTHER, MEDICAID, SELFPAY ==
[~2020-06-07] VITALS: Ht 157.5 cm; Wt 45.4 kg
[2020-06-07 15:13] VITALS: BP_SYST 121
--- NOTE | 2020-06-07 15:13 | NUR ---
BROUGHT BACK TO BED #4 AND TRIAGED. REPORT GIVEN TO FRANCISCA
[2020-06-07] MEDS ORDERED: ONDANSETRON HCL 4 MG/2 ML VIAL IVP ONE (15:30)
--- NOTE | 2020-06-07 15:35 | NUR ---
DR SHAY IN TO ASSESS
--- NOTE | 2020-06-07 15:45 | NUR ---
BIB AMBULANCE FROM HOME AFTER FALL. C/O LBP AND LT SIDED EXTREMITY PAIN RESP UNLABORED, SKIN WARM AND DRY. DENIES HEAD INJURY OR LOC. TEARFUL AND GUARDED, REPOSITIONED FOR COMFORT
[2020-06-07] MEDS ORDERED: MORPHINE 2 MG/ML INJ. SYRINGE IVP ONE ×3 (16:00→18:15)
[2020-06-07 16:10] LABS: BASOPHILS # (AUTO) 0.1 K/uL (0.0-0.2); BASOPHILS % (AUTO) 0.8 % (0.0-2.0); EOSINOPHILS # (AUTO) 0.3 K/uL (0.0-0.4); EOSINOPHILS % (AUTO) 1.8 % (0.0-4.0); HEMATOCRIT 47.2 % (36-48); HEMOGLOBIN 15.7 g/dL (12.0-16.0); LYMPHOCYTES # (AUTO) 2.2 K/uL (1.0-5.5); LYMPHOCYTES % (AUTO) 13.4 % (20.5-51.5); MEAN CORPUSCULAR HEMOGLOBIN 29 pg (27-31); MEAN CORPUSCULAR HGB CONC 33 % (32-36); MEAN CORPUSCULAR VOLUME 88 fL (79.0-98.0); MONOCYTES % (AUTO) 6.2 % (1.7-9.3); NEUTROPHILS # (AUTO) 12.7 K/uL (1.8-7.7); NEUTROPHILS % (AUTO) 77.8 % (40.0-70.0); PLATELET COUNT (AUTO) 325 K/uL (130-430); RED BLOOD CELL COUNT(AUTO) 5.39 MIL/uL (4.2-6.2); RED CELL DISTRIBUTION WIDTH 16.2 % (9.0-15.0); WHITE BLOOD COUNT (AUTO) 16.4 K/uL (4.8-10.8)
--- NOTE | 2020-06-07 16:10 | NUR ---
TRANSPORTED TO RADIOLOGY VIA [facility]
[2020-06-07 16:25] LABS: ANION GAP 13 (5-15); CHLORIDE 106 mmol/L (98-107); CREATININE 0.51 mg/dL (0.55-1.30); GLUCOSE 108 mg/dL (70-99); POTASSIUM 3.9 mmol/L (3.5-5.1); SODIUM SERUM 140 mmol/L (136-145); UREA NITROGEN, BLOOD 15 mg/dL (8-21)
[2020-06-07 16:26] LABS: GFR AFRICAN AMERICAN 153 mL/min (>90)
[2020-06-07 16:38] LABS: ALANINE AMINOTRANSFERASE 16 U/L (12-78); ALBUMIN 3.9 g/dL (3.4-4.8); ASPARTATE AMINOTRANSFERASE 14 U/L (10-37); TOTAL BILIRUBIN 0.6 mg/dL (0.0-1.0)
[2020-06-07 16:51] LABS: BILIRUBIN,DIRECT 0.1 mg/dL (0.0-0.3)
--- NOTE | 2020-06-07 16:54 | NUR ---
SENT TO CT
[2020-06-07] MEDS ORDERED: MORPHINE 2 MG/ML INJ. SYRINGE ONE (17:01)
[2020-06-07] MEDS ORDERED: DEXAMETHASONE SOD PHOSPHATE 10 MG/ML VIAL IVP ONE (18:45)
--- NOTE | 2020-06-07 20:57 | NUR ---
Patient will be admitted to care of MD. Admitted to M/S unit. Will go to room 102 Belongings list completed. Complete and up to date summary report printed. SBAR report to be given at bedside with opportunity for questions.
--- NOTE | 2020-06-07 21:07 | NUR ---
ADMIT NOTE Received pt from ER to the floor with a diagnosis of INTRACTABLE BACK PAIN. Admission process initiated. patient oriented to pain management, safety and call light-teach back done.
--- NOTE | 2020-06-07 21:10 | NUR ---
HIGH ALERT NOTE: Called Dr. NOVA back at identified within the medical roster to verify physician authenticity FOR MORPHINE AND ROBAXIN MEDICATIONS.
[2020-06-07] MEDS ORDERED: methocarbamoL 500 MG TABLET PO ONE (21:15)
[2020-06-07] MEDS ORDERED: MORPHINE 2 MG/ML INJ. SYRINGE IVP PRN (21:15)
[2020-06-07] MEDS: NACL 0.9% 1,000 ML IV SCH (21:31)
[2020-06-07] MEDS ORDERED: ACETAMINOPHEN 500 MG TABLET PO PRN (22:15)
[2020-06-07] MEDS ORDERED: HYDROcodone/ACETAMIN 7.5-325 MG TAB PO PRN (22:15)
[2020-06-07] MEDS ORDERED: DOCUSATE SODIUM 100 MG/10 ML UDC PO PRN (22:15)
[2020-06-07] MEDS ORDERED: ONDANSETRON HCL 4 MG/2 ML VIAL IVP PRN (22:15)
--- NOTE | 2020-06-07 23:00 | NUR ---
HIGH ALERT NOTE: Called Dr. NOVA back at identified within the medical roster to verify physician authenticity FOR DILAUDID AND ATIVAN MEDICATION ORDERS.
[2020-06-07] MEDS ORDERED: LORazepam 2 MG/ML VIAL IVP ONE (23:15)
[2020-06-07] MEDS ORDERED: HYDROmorphone 1 MG INJ. 1 MG/ML AMPUL IVP ONE (23:15)
[2020-06-07 23:48] LABS: INR 1.3 (0.8-1.2); PROTHROMBIN TIME 13.2 SECS (9.5-12.5)
[2020-06-07 23:59] LABS: FREE T4 (FREE THYROXINE) 0.6 ng/dL (0.6-1.6); PHOSPHORUS 3.4 mg/dL (2.7-4.5); THYROID STIMULATING HORMONE 0.79 uIu/mL (0.34-4.82)
[2020-06-08] VITALS: BP_SYST 142
--- NOTE | 2020-06-08 01:15 | NUR ---
RN ROUNDS: PATIENT IS SLEEPING. RESPIRATION IS EVEN AND UNLABORED. NO S/S ACUTE DISTRESS NOTED. IVF INFUSING, NO SIGN OF INFILTRATION NOTED. SAFETY AND FALL PRECAUTIONS MAINTAINED. WILL CONTINUE TO MONITOR.
[2020-06-08] MEDS: MORPHINE 2 MG/ML INJ. SYRINGE IVP PRN ×6 (02:16→22:48)
--- NOTE | 2020-06-08 02:25 | NUR ---
PAIN MED PASS: PATIENT REPORTS GENERALIZED PAIN, PAIN MED GIVEN PER PAIN SCALE. PATIENT TOLERATED WELL. NO SOB OR ACUTE DISTRESS NOTED. SAFETY AND FALL PRECAUTIONS ARE IN PLACE. WILL CONTINUE TO MONITOR.
[2020-06-08] MEDS ORDERED: METHOCARBAMOL 1000 MG/10 ML VIAL IVP PRN (04:00)
--- NOTE | 2020-06-08 04:10 | NUR ---
RN ROUNDS: PATIENT IS IN BED, SLEEPING. NO S/S OF ACUTE DISTRESS NOTED. RESPIRATION IS EVEN AND UNLABORED. SAFETY AND FALL PRECAUTIONS ARE IN PLACE. WILL MONITOR PATIENT.
--- NOTE | 2020-06-08 06:23 | NUR ---
MED PASS/CLOSING NOTE: PATIENT IS AWAKE, REPORTING GENERALIZED PAIN, PRN PAIN MED GIVEN TO PATIENT, TOLERATED WELL. OFFERED PATIENT SKIN AND MORNING HYGIENE, PATIENT REFUSED. EDUCATED PATIENT REGARDING SCD's, SHE REFUSED TO HAVE IT ON AT THIS TIME.IVF INFUSING, NO SIGN OF INFILTRATION NOTED. BED LOCKED IN LOWEST POSITION, CALL LIGHT IS WITH PATIENT. PATIENT IS STABLE. WILL ENDORSE PATIENT CARE TO DAY SHIFT RN.
[2020-06-08 06:25] LABS: BASOPHILS # (AUTO) 0.1 K/uL (0.0-0.2); BASOPHILS % (AUTO) 0.5 % (0.0-2.0); HEMATOCRIT 44.1 % (36-48); HEMOGLOBIN 14.5 g/dL (12.0-16.0); LYMPHOCYTES # (AUTO) 1.2 K/uL (1.0-5.5); MEAN CORPUSCULAR HEMOGLOBIN 29 pg (27-31); MEAN CORPUSCULAR HGB CONC 33 % (32-36); MEAN CORPUSCULAR VOLUME 88 fL (79.0-98.0); MONOCYTES # (AUTO) 0.5 K/uL (0.0-1.0); MONOCYTES % (AUTO) 3.5 % (1.7-9.3); NEUTROPHILS # (AUTO) 11.6 K/uL (1.8-7.7); PLATELET COUNT (AUTO) 315 K/uL (130-430); RED BLOOD CELL COUNT(AUTO) 4.98 MIL/uL (4.2-6.2); RED CELL DISTRIBUTION WIDTH 16.2 % (9.0-15.0); WHITE BLOOD COUNT (AUTO) 13.3 K/uL (4.8-10.8)
[2020-06-08] MEDS: DEXAMETHASONE SOD PHOSPHATE 4 MG/ML VIAL IVP SCH ×4 (06:32→23:36)
[2020-06-08 06:40] LABS: CALCIUM 8.6 mg/dL (8.4-11.0); CREATININE 0.49 mg/dL (0.55-1.30); POTASSIUM 4.2 mmol/L (3.5-5.1)
--- NOTE | 2020-06-08 07:30 | NUR ---
OPENING NOTES PT RESTING IN BED, CHEST RISE AND FALL NOTED. EASILY AWAKEN. NONLABORED BREATHING NOTED ON ROOM AIR, TOLERATING WELL. NO S/S OF SOB NOTED. NO ACUTE DISTRESS NOTED. BED LOCKED AND IN LOWEST POSITION. BED ALARM ON. ALL NEEDS MET. CALL LIGHT IN REACH. FALL AND ASPIRATION PRECAUTIONS IN PLACE. CONTINUE TO MONITOR.
[2020-06-08 08:00] VITALS: BP_SYST 123
[2020-06-08] MEDS ORDERED: POTASSIUM CHLORIDE 20 MEQ TAB.PRT.SR PO PRN (09:00)
--- NOTE | 2020-06-08 09:24 | NUR ---
Nutrition Update Be Scale 11 noted. Pt admitted for intractable back pain. Diet: regular BMI: 18.3 kg/m2 RD to follow per nutrition care
[2020-06-08] MEDS: PANTOPRAZOLE SODIUM 40 MG TAB PO SCH (09:27)
--- NOTE | 2020-06-08 09:30 | NUR ---
ROUTINE MEDS ADMINISTERED ORDERED PER MD, EDUCATION GIVEN, TOLERATED WELL. PT C/O PAIN, EXPLAINED TO PT OF BACK PAIN MED ROBAXIN, PER PHARM, NAHID GREENWOOD TO GIVE AT THIS TIME. PT REFUSED MED AT THIS TIME AND STATED WILL WAIT FOR MORPHINE. EDUCATED PT, PT VERBALIZED UNDERSTANDING. CONTINUE TO MONITOR.
--- NOTE | 2020-06-08 10:46 | NUR ---
pt c/o pain, checked bp,. bp wnl. administered pain meds as ordered per md, education given, tolerated well. continue to monitor.
--- NOTE | 2020-06-08 12:46 | NUR ---
routine meds administered as ordered per md, education given, tolerated well. continue to monitor.
--- NOTE | 2020-06-08 15:22 | NUR ---
HIGH ALERT NOTE: Called Kyree Wilkerson back at [phone] identified within the medical roster to verify physician authenticity.
[2020-06-08] MEDS ORDERED: HYDROmorphone 1 MG INJ. 1 MG/ML AMPUL IVP ONE (15:30)
[2020-06-08] MEDS: NACL 0.9% 1,000 ML IV SCH (15:38)
[2020-06-08 16:00] VITALS: BP_SYST 133
--- NOTE | 2020-06-08 16:11 | NUR ---
P.T. NOTES P.T. EVAL COMPLETED; REFER TO EVAL FOR DETAILS.
--- NOTE | 2020-06-08 17:54 | NUR ---
routine meds administered as ordered per md, education given, tolerated well. continue to monitor.
--- NOTE | 2020-06-08 18:08 | NUR ---
WOUND CARE DONE, TOLERATED WELL. CONTINUE TO MONITOR.
--- NOTE | 2020-06-08 18:34 | NUR ---
spoke to quintin from radiology following up for MRI, stated that MRI's are not done on the weekend.
--- NOTE | 2020-06-08 18:44 | NUR ---
pt c/o pain, checked bp, bp 139/76, administered pain meds as ordered per md, education given, tolerated well. continue to monitor.
--- NOTE | 2020-06-08 18:48 | NUR ---
CLOSING NOTES PT AWAKE, ALERT, AND ORIENTED WATCHING TV IN BED. IV LINE INTACT AND PATENT, NO SIGNS OF INFILTRATION NOTED. NO ACUTE DISTRESS NOTED. PT REFUSE SCDS AT THIS TIME, EDUCATED GIVEN REGARDING BENEFITS, ASKED THREE TIMES, PT CONTINUE TO REFUSE. ALL NEEDS MET. CALL LIGHT IN REACH. FALL AND ASPIRATION PRECAUTIONS IN PLACE. WILL ENDORSE TO NOC NURSE.
--- NOTE | 2020-06-08 19:10 | NUR ---
OPENING NOTES Patient is resting, eyes closed. No signs of acute respiratory distress noted. IV site patent, dressings c/d/i, IVF running. Call light within reach, bed alarm refused after patient education provided for risk of falls. Received report that patient refused SCD's all day. Will continue to monitor.
[2020-06-08] MEDS: ZOLPIDEM TARTRATE 5 MG TABLET PO PRN (23:36)
--- NOTE | 2020-06-08 23:51 | NUR ---
SPOKE TO DR. NOVA, RECEIVED NEW ORDERS FOR DILAUDID 0.5 MG ONE TIME DOSE IVP AND A PSYCH EVAL AFTER EXPLAINING THAT PATIENT HAD RECEIVED MORPHINE 2MG AN HOUR AGO WITH DUNIA, AND ABNER 30 MIN AGO. PATIENT CONTINUES TO SCREAM AND CRY THAT PATIENT WANTS DILAUDID AND NOT ROBAXIN WHICH WAS OFFERED. NOTED TO MD THE VITALS 155/82 PULSE 76.
--- NOTE | 2020-06-08 23:52 | NUR ---
HIGH ALERT NOTE: Called Dr. Jay back at [phone] identified within the medical roster to verify physician authenticity.
[2020-06-09] VITALS: BP_SYST 155
[2020-06-09] MEDS ORDERED: HYDROmorphone 1 MG INJ. 1 MG/ML AMPUL IVP ONE
--- NOTE | 2020-06-09 00:05 | NUR ---
Patient continues to scream, explained to patient that patient will receive Dilaudid. Call light within reach, bed alarm screamed and refused after telling patient bed alarm would be on, bed at lowest position. Will continue to monitor.
[2020-06-09] MEDS: MORPHINE 2 MG/ML INJ. SYRINGE IVP PRN ×5 (04:37→17:46)
--- NOTE | 2020-06-09 05:54 | NUR ---
CALLED CONSULT FOR DR. SOLANO I SPOKE WITH JUAN VICK SHE SAID DO NOT KNOW WHO IS CARDIOPULMONARY PHYSICAL THERAPIST SHE SAID TO FAX FACE SHEET OVER THE OFFICE BUT SHE TOLD ME TO FALLOWED UP LATER
--- NOTE | 2020-06-09 06:07 | NUR ---
CLOSING NOTES Patient is resting, eyes closed. No signs of acute respiratory distress noted. IV site patent, dressings c/d/i, IVF running. Call light within reach, bed alarm refused after patient education provided for risk of falls. SCD's refused as well as straight cath to obtain UA. Patient is calm at this time and stated that she did not want to do the straight catheter, as she states she wants to go home. Educated patient on need of UA and patient care, but patient continues to scream at that time. Will endorse care to oncoming shift.
[2020-06-09 06:17] LABS: BASOPHILS % (AUTO) 0.4 % (0.0-2.0); HEMATOCRIT 40.8 % (36-48); HEMOGLOBIN 13.6 g/dL (12.0-16.0); LYMPHOCYTES # (AUTO) 0.8 K/uL (1.0-5.5); LYMPHOCYTES % (AUTO) 8.2 % (20.5-51.5); MEAN CORPUSCULAR HEMOGLOBIN 30 pg (27-31); MEAN CORPUSCULAR HGB CONC 33 % (32-36); MEAN CORPUSCULAR VOLUME 88 fL (79.0-98.0); MONOCYTES # (AUTO) 0.4 K/uL (0.0-1.0); MONOCYTES % (AUTO) 4.2 % (1.7-9.3); NEUTROPHILS # (AUTO) 8.6 K/uL (1.8-7.7); NEUTROPHILS % (AUTO) 87.2 % (40.0-70.0); PLATELET COUNT (AUTO) 300 K/uL (130-430); RED BLOOD CELL COUNT(AUTO) 4.62 MIL/uL (4.2-6.2); WHITE BLOOD COUNT (AUTO) 9.9 K/uL (4.8-10.8)
[2020-06-09 08:00] VITALS: BP_SYST 150
[2020-06-09 08:42] LABS: CALCIUM 8.5 mg/dL (8.4-11.0); CREATININE 0.47 mg/dL (0.55-1.30); POTASSIUM 4.4 mmol/L (3.5-5.1)
[2020-06-09] MEDS: PANTOPRAZOLE SODIUM 40 MG TAB PO SCH (09:10)
[2020-06-09] MEDS ORDERED: MORP15TA60 PO (09:26)
[2020-06-09] MEDS ORDERED: PERC10 PO (09:26)
[2020-06-09] MEDS ORDERED: MORPHINE SULFATE 15 MG TABLET.ER PO ONE (10:15)
[2020-06-09] MEDS ORDERED: GABAPENTIN 300 MG CAPSULE PO ONE (10:15)
[2020-06-09] MEDS ORDERED: amLODIPine BESYLATE 10 MG TABLET PO ONE (10:15)
[2020-06-09] MEDS ORDERED: ATORVASTATIN 20 MG TABLET PO ONE (10:15)
[2020-06-09 12:00] VITALS: BP_SYST 141
[2020-06-09] MEDS: LORazepam 2 MG/ML VIAL IVP PRN ×2 (12:34→18:56)
[2020-06-09] MEDS: NACL 0.9% 1,000 ML IV SCH (12:42)
[2020-06-09] MEDS ORDERED: DULoxetine HCL 20 MG CAPSULE.DR PO ONE (14:30)
[2020-06-09 16:56] VITALS: BP_SYST 136
[2020-06-09] MEDS: GABAPENTIN 300 MG CAPSULE PO SCH ×2 (17:43→22:27)
[2020-06-09 19:00] VITALS: BP_SYST 130
--- NOTE | 2020-06-09 19:15 | NUR ---
change of shift.pt.presents quiescent affect;calm,somnolent.pt.has received administration ativan:1mg ivp p/t to the change of shift. pt.presents iv access intact;patent iv fluids infusing.pt.presents general status stable.respiratory status stable;unlabored@room air.call light/telephone w/in reach of the pt.
[2020-06-09 20:00] VITALS: BP_SYST 130
--- NOTE | 2020-06-09 20:00 | NUR ---
pt.assessed.v/s assessed values w/in normal limits.pt.inquired when pain medication is due;i apprised the pt.that dilaudid/ms-contin is due@2100p.pt.assessed for cleanliness.pt.repositioned.iv access intact;patent iv fluids infusing.no c/o nausea.i have apprised pt the pt.that snacks/beverages are available w/in the shift.no requests posited@this hour.call light/telephone placed w/in reach of the pt.
[2020-06-09] MEDS: MORPHINE SULFATE 15 MG TABLET.ER PO SCH (21:00)
--- NOTE | 2020-06-09 21:00 | NUR ---
2100pmedications administered.hold dilaudid @this hour.
--- NOTE | 2020-06-09 22:00 | NUR ---
pt.assessed.pt.presents quiescent affect;calm,resting.pt.assessed for cleanliness.pt.repositioned.iv access intact;patent iv fluids infusing.no requests posited@this hour.general status stable.respiratory status stable;unlabored.call light/telephone placed w/in access of the pt.
[2020-06-09] MEDS: HYDROmorphone 1 MG INJ. 1 MG/ML AMPUL IVP PRN (22:25)
[2020-06-09] MEDS: ZOLPIDEM TARTRATE 5 MG TABLET PO PRN (22:28)
--- NOTE | 2020-06-09 22:30 | NUR ---
pt.requested pain medication.pt.requested dilaudid;1mg ivp.declined the ms-contin.i hav administered dilaudid;1mg ivp.to assess the efficacy of the pain medication per pain mgx protocol.
--- NOTE | 2020-06-10 | NUR ---
pt.assessed.v/s assessed values w/in normal limits.no c/o pain,nausea.no requests posited@this hour.pt.assessed for cleanliness.pt.repositioned.iv access intact;patent iv fluids infusing.general status stable.respiratory status stable; unlabored.call light/telephone placed w/in access of the pt.
[2020-06-10 00:17] VITALS: BP_SYST 142
--- NOTE | 2020-06-10 02:00 | NUR ---
pt.assessed.pt.presents quiescent affect;calm,somnolent.per flacc pain mgx pt.absent facial grimaces body posturing.iv access intact;patent iv fluids infusing.pt.assessed for cleanliness.pt.repositioned.call light/telephone placed w/in access of the pt.
[2020-06-10] MEDS: MORPHINE 2 MG/ML INJ. SYRINGE IVP PRN ×4 (02:17→15:07)
[2020-06-10] MEDS: LORazepam 2 MG/ML VIAL IVP PRN ×3 (02:25→16:09)
--- NOTE | 2020-06-10 02:30 | NUR ---
pt.requested medication;pain/anxiety.i have administered morphine;2mg ivp;to assess the efficacy of the pain medication per pain mgx protocol.i have administered ativan;1mg ivp.pt.required cleaning.pt.cleaned.repositioned.call light/telephone placed w/in reach of the pt.
--- NOTE | 2020-06-10 04:00 | NUR ---
pt.assessed.pt.present quiescent affect;calm,somnolent.per flacc pain mgx pt.absent facial grimaces/body posturing.pt.assessed for cleanliness.pt.repositioned.iv access intact;patent iv fluids infusing.general status stable.respiratory status stable;unlabored.call light/telephone placed w/in access of the pt.
--- NOTE | 2020-06-10 06:30 | NUR ---
pt.assessed.pt.had requested medication;pain.i administered morphine;2mg ivp;to assess the efficacy of the pain medication per pain mgx protocol.pt.assessed for cleanliness.pt.repositioned.iv access intact;patent iv fluids infusing. general status stable.respiratory status stable;unlabored.call light/telephone placed w/in access of the pt.
[2020-06-10] MEDS: NACL 0.9% 1,000 ML IV SCH (06:37)
--- NOTE | 2020-06-10 07:20 | NUR ---
opening note received bedside sbar from night rn, patient in bed, respirations even non labored, bed in low and locked position
[2020-06-10] MEDS ORDERED: DULO20CA PO (07:40)
[2020-06-10 08:00] VITALS: BP_SYST 143
--- NOTE | 2020-06-10 08:00 | NUR ---
nurse note obtained patient vs, patient in bed respirations even non labored, ivf's running as directed, bed in low and locked position,
[2020-06-10] MEDS ORDERED: ATORVASTATIN 20 MG TABLET PO SCH (09:00)
[2020-06-10] MEDS ORDERED: amLODIPine BESYLATE 10 MG TABLET PO SCH (09:00)
[2020-06-10] MEDS ORDERED: DULoxetine HCL 20 MG CAPSULE.DR PO SCH (09:00)
--- NOTE | 2020-06-10 09:20 | NUR ---
nurse note administered morning medications, harrison was not in pyxis, called pharmacy, will bring as soon as possible, patient agitated, states she is " mad at everyone", IVF's running as ordered, bed in low and locked positon, call light within reach
[2020-06-10] MEDS: PANTOPRAZOLE SODIUM 40 MG TAB PO SCH (09:21)
[2020-06-10] MEDS: GABAPENTIN 300 MG CAPSULE PO SCH ×2 (09:22→15:06)
[2020-06-10] MEDS: MORPHINE SULFATE 15 MG TABLET.ER PO SCH (09:22)
[2020-06-10 09:56] LABS: BASOPHILS # (AUTO) 0.1 K/uL (0.0-0.2); BASOPHILS % (AUTO) 1.1 % (0.0-2.0); EOSINOPHILS # (AUTO) 0.1 K/uL (0.0-0.4); EOSINOPHILS % (AUTO) 1.5 % (0.0-4.0); HEMOGLOBIN 13.1 g/dL (12.0-16.0); LYMPHOCYTES # (AUTO) 2.5 K/uL (1.0-5.5); LYMPHOCYTES % (AUTO) 28.3 % (20.5-51.5); MEAN CORPUSCULAR HEMOGLOBIN 29 pg (27-31); MEAN CORPUSCULAR HGB CONC 33 % (32-36); MEAN CORPUSCULAR VOLUME 89 fL (79.0-98.0); MONOCYTES # (AUTO) 0.7 K/uL (0.0-1.0); MONOCYTES % (AUTO) 8.1 % (1.7-9.3); NEUTROPHILS # (AUTO) 5.5 K/uL (1.8-7.7); PLATELET COUNT (AUTO) 280 K/uL (130-430); RED BLOOD CELL COUNT(AUTO) 4.49 MIL/uL (4.2-6.2); RED CELL DISTRIBUTION WIDTH 16.2 % (9.0-15.0)
--- NOTE | 2020-06-10 10:01 | NUR ---
Program Paraprofessional: D/C CHICLE GRINDER FEEDER received D/C order for pt. for SNF either [facility] ph [phone] fax [phone] or [place] [place] [phone]. CHICLE GRINDER FEEDER faxd a packet to both facilities. CHICLE GRINDER FEEDER received a call from Peng from [facility]. She stated they have a bed for pt., Room 2A (12:30-1pm). CHICLE GRINDER FEEDER thanked her and will wait to see if [facility] is also accepting. Addendum: 06/10/20 at 1108 by Shreya Worley MSW Program Paraprofessional: follow up CHICLE GRINDER FEEDER spoke with Sidra FRAGOSO to notify her that both facilities have accepted pt. CHICLE GRINDER FEEDER spoke with [facility] and they have bed 6A. available. CHICLE GRINDER FEEDER shared info with FOUZIA Valente who informed CHICLE GRINDER FEEDER she is waiting to hear if [facility] is going to take pt. back. CHICLE GRINDER FEEDER will follow up. Addendum: 06/10/20 at 1631 by Shreya Worley MSW Program Paraprofessional: D/C follow up CHICLE GRINDER FEEDER received an update from FOUZIA, pt is agreeable to go to [facility], 6pm. FOUZIA spoke to family member. CHICLE GRINDER FEEDER prepared a packet for 6:30 ambulance crab picker as requested. CHICLE GRINDER FEEDER called and spoke to Nika at [facility]. She stated they will be ready to receive the pt. CHICLE GRINDER FEEDER took the packet to the Rn. station and made tech aware of this crab picker and packet. CHICLE GRINDER FEEDER called [facility] and left a message for Peng to let her know pt. will not be coming to their facility.
[2020-06-10 10:22] LABS: CALCIUM 8.1 mg/dL (8.4-11.0); CREATININE 0.5 mg/dL (0.55-1.30); POTASSIUM 3.9 mmol/L (3.5-5.1)
--- NOTE | 2020-06-10 11:15 | NUR ---
wound care wound care provided with MAHIN Fu, patient refused to allow us to assess buttocks, educated patient regarding the need for assessment, patient verbalized understanding and continues to refuse. Patient tolerated well
[2020-06-10 12:34] VITALS: BP_SYST 143
--- NOTE | 2020-06-10 13:30 | NUR ---
nurse note patient incontinent of bladder, provided susi care, changed linens, repositioned patient
--- NOTE | 2020-06-10 13:36 | NUR ---
DISCHARGE PLANNING This am order for dc to SNF. At 1030 spoke with pt @ bedside & refused any SNF, states only wants to go back home to [facility]. Informed her would check if would be accepted @ [facility]. Spoke with PT & recommends SNF, states pt was able to stand & doing step exercises but then about 5 to 10min knees buckled. Called & spoke with Renetta Assisted Market Researcher, @ [facility] ph [phone], & updated on patients PT if able to return. States pt would be able to go to the program for Physical Therapy but would need to discuss with Medical Communication Specialist if pt able to return back @ this time, states Medical Communication Specialist in meeting. Have not received call back, called & spoke with Miguel Jackson still in meeting, will call once out of meeting.
--- NOTE | 2020-06-10 15:00 | NUR ---
nurse note patient complaining of pain, repositioned patient, offered to provide ice pack, patient denies, wants pain medication, patient very upset wants to go home
--- NOTE | 2020-06-10 15:59 | NUR ---
DISCHARGE PLANNING Called & spoke with Akilah Burling And Joining Supervisor @ [facility], ph [phone], [facility] would prefer for pt to go to SNF for rehab but will accept pt back. If comes back would like Home Health for PT, [facility] comes to the facility. Spoke with pt @ bedside again to discuss dc planning. Informed spoke with employee relations administrator & will take back but recommends short term rehab at SNF, also reminded that PT & Md recommended SNF for short term rehab. Pt fell at assisted living facility. States is in agreement with SNF with preference for [facility], [facility] has been there in past. Wants me to call & notify sister in law Wilcox & to tell her to bring her wc to SNF. Would like to go @ 630pm, informed pt's nurse & 630pm is ok. Called & notified Akilah @ [facility]. Called & spoke with sister in law Wilcox, ph [phone], [facility] is already aware of plan & in agreement with [facility] today. [facility] pt called her already & will strip picker wc from [facility] & take to [facility].
--- NOTE | 2020-06-10 16:00 | NUR ---
WOUND EVALUATION: Late note for 06/10/2020 at 1600 secondary to patient care. Wound Consult received from Dr. Jay. Thank you, Dr. Jay, for the consult. Patient received in a Jeremy Bed with an IsoFlex YARIEL mattress with low air loss therapy, awake, alert, anxious, agitated, oriented. Patient is able to turn in bed. Be Score is a 16. Past Medical History: Hypertension, Fibromyalgia, Sciatica, back surgery. Patient fell last week and hit her head on the drywall, also hitting her left hip and left shoulder. Recent Labs: WBC 9.0, RBC 4.49, hemoglobin 13.1, hematocrit 40.0, BUN 19, creatinine 0.50, GFR 130, calcium 8.1, PT 13.2, INR 1.3. Microbiology: Blood culture results x2 in progress. Extrinsic factors that delay wound healing: Decreased mobility. Wound Assessment: 1. Left elbow: Dry black scab, present on admission. No odor, no drainage. Dry, stable. Recommend: No dressing needed. Continue to monitor site every shift. 2. Left forearm: Skin tear, present on admission. Wound bed has 100% red tissue. No odor, scant sanguineous drainage. Periwound intact. Skin tear measures 1.0 cm x 1.0 cm. Recommend: Cleanse skin tear with normal saline. Apply sure prep to susi-skin tear area. Apply hydrogel to skin tear site. Cover with non-adhesive foam dressing. Wrap with Stevie wrap. Perform skin tear care daily, and as needed for dressing soiling or dislodgment. 3. Left knee: Abrasion, present on admission. Site has 50% brown scab, 50% light red tissue. No odor, scant sanguineous drainage. Periwound intact. Abrasion measures 2.5 cm x 2.5 cm. Recommend: Cleanse site with normal saline. Apply sure prep to susi-abrasion area. Apply hydrogel to abrasion. Cover with foam dressing. Perform site care daily, and as needed for dressing soiling or dislodgment. 4. Right knee: Dry black scab, present on admission. No odor, no drainage. Dry, stable. Recommend: No dressing needed. Continue to monitor site every shift. 5. Left posterior thigh: Wound, present on admission. Wound bed has 95% black scab, 5% red tissue. No odor, scant yellow drainage. Periwound intact. Site measures 2.0 cm x 4.0 cm. Recommend: Cleanse site with normal saline. Apply sure prep to susi-wound area. Apply Hydrogel to site. Cover with foam dressing. Perform site care daily, and as needed for dressing soiling or dislodgment. 6. Left buttock: Patient refused assessment of site. Offered to let her (female) nurse assess site, but patient again refused: "No one is looking at my butt." 7. Right buttock: Patient refused assessment of site. Offered to let her (female) nurse assess site, but patient again refused: "No one is looking at my butt." Recommend:Offload site, turning patient side to side only every 2 hours. Apply moisture barrier cream qid prn for any episodes of incontinence. Also recommend: Encourage and assist patient as needed with repositioning side to side only every 2 hours with pillow support and off-load pressure areas with pillows for pressure re-distribution. Offload, elevate and float bilateral heels with pillows. Perform skin care and monitor skin integrity Q shift. Use moisture barrier cream on buttocks and other moisture susceptible areas QID and as needed for soiling. Maintain patient on a low air-loss mattress.
--- NOTE | 2020-06-10 16:00 | NUR ---
nurse note patient complaining of anxiety, offered to dim lights, repositioned patient, patient requests medication
--- NOTE | 2020-06-10 17:32 | NUR ---
nurse note patient in bed, respirations even non labored, bed in low and locked position, call light within reach,
[2020-06-10 17:52] VITALS: BP_SYST 143
--- NOTE | 2020-06-10 18:30 | NUR ---
nurse note patient complaining of pain, repositioned patient, offered ice pack, patient refused, patient wants medication
[2020-06-10] MEDS: HYDROmorphone 1 MG INJ. 1 MG/ML AMPUL IVP PRN (18:42)
--- NOTE | 2020-06-10 19:12 | NUR ---
nurse note re assessed pain management, patient states " nothing helps" " leave me alone", offered ice pack, patient refused to answer
--- NOTE | 2020-06-10 19:20 | NUR ---
PT TRANSFERRED Report given to [facility] Transfer packet with Transfer Orders and Medication Reconciliation form given to EMT with report. Exitcare provided. [facility] ID band removed, replaced with ID band with pt's name and . IV catheter removed, intact and dressing applied, no active bleeding. All belongings sent with patient. Patient left floor via gurney escorted by EMT in no distress.
== END 2020-06-10 19:20 | DRG 551 ==
LOC: SED 15:13 → SMU 18:35
PROVIDERS: ADMIT Family Medicine; ATTEND Family Medicine
DX: M54.30 Sciatica, unspecified side (principal); G93.41 Metabolic encephalopathy; F11.20 Opioid dependence, uncomplicated; R65.10 Systemic inflammatory response syndrome (SIRS) of non-infectious origin without acute organ dysfunction; D72.829 Elevated white blood cell count, unspecified; R29.6 Repeated falls; E78.5 Hyperlipidemia, unspecified; R26.9 Unspecified abnormalities of gait and mobility; M19.90 Unspecified osteoarthritis, unspecified site; M79.7 Fibromyalgia; Z20.828 Contact with and (suspected) exposure to other viral communicable diseases; F41.9 Anxiety disorder, unspecified; Z88.0 Allergy status to penicillin; Z88.6 Allergy status to analgesic agent; Z88.8 Allergy status to other drugs, medicaments and biological substances; Z90.710 Acquired absence of both cervix and uterus
CPT/HCPCS: 36415; 70450-TC; 71045; 72125-TC; 72148; 73030; 73502; 73560-TC; 80048; 80061; 80076; 82150-TC; 83036; 83605; 83690-TC; 83735-TC; 83880; 84100-TC; 84439; 84443-TC; 84484; 85025; 85610-TC; 85730-TC; 87040-TC; 93005; 96374; 96375; 96376; 97110-GP; 97112-GP; 97530-GP; 99285; J1100; J1170; J2060; J2270; J2405; J2800; J7030

== ENCOUNTER 2020-12-03 01:47 | Emergency (ER) | payer OTHER, MEDICAID, SELFPAY ==
[~2020-12-03] VITALS: Ht 149.9 cm; Wt 54.4 kg
[~2020-12-03 01:47] MED LIST changes: +DULO20CA PO; +MORP15TA60 PO; +PERC10 PO
[2020-12-03 01:50] VITALS: BP_SYST 146
[2020-12-03] MEDS ORDERED: ACETAMINOPHEN 500 MG TABLET PO ONE (02:15)
[2020-12-03] MEDS ORDERED: NACL 0.9% 1,000 ML IV ONE (02:15)
[2020-12-03] MEDS ORDERED: MORPHINE 4 MG/ML INJ. SYRINGE IVP ONE ×2 (02:30→03:30)
[2020-12-03 02:44] LABS: ANION GAP 12 (5-15); BASOPHILS # (AUTO) 0.1 K/uL (0.0-0.2); BASOPHILS % (AUTO) 1.2 % (0.0-2.0); CALCIUM 7.9 mg/dL (8.4-11.0); CHLORIDE 113 mmol/L (98-107); CREATININE 0.75 mg/dL (0.55-1.30); EOSINOPHILS # (AUTO) 0.3 K/uL (0.0-0.4); EOSINOPHILS % (AUTO) 3.1 % (0.0-4.0); GLUCOSE 103 mg/dL (70-99); HEMATOCRIT 45.1 % (36-48); HEMOGLOBIN 15.1 g/dL (12.0-16.0); LYMPHOCYTES % (AUTO) 22.2 % (20.5-51.5); MEAN CORPUSCULAR HEMOGLOBIN 31 pg (27-31); MEAN CORPUSCULAR HGB CONC 33 % (32-36); MEAN CORPUSCULAR VOLUME 94 fL (79.0-98.0); MONOCYTES # (AUTO) 0.7 K/uL (0.0-1.0); MONOCYTES % (AUTO) 7.4 % (1.7-9.3); NEUTROPHILS # (AUTO) 6.1 K/uL (1.8-7.7); NEUTROPHILS % (AUTO) 66.1 % (40.0-70.0); PLATELET COUNT (AUTO) 240 K/uL (130-430); POTASSIUM 3.5 mmol/L (3.5-5.1); RED BLOOD CELL COUNT(AUTO) 4.81 MIL/uL (4.2-6.2); RED CELL DISTRIBUTION WIDTH 16.8 % (9.0-15.0); SODIUM SERUM 149 mmol/L (136-145); UREA NITROGEN, BLOOD 19 mg/dL (8-21); WHITE BLOOD COUNT (AUTO) 9.2 K/uL (4.8-10.8)
[2020-12-03 02:48] LABS: INR 1.1 (0.8-1.2); PROTHROMBIN TIME 10.9 SECS (9.5-12.5)
[2020-12-03 02:56] LABS: ALANINE AMINOTRANSFERASE 18 U/L (12-78); ALBUMIN 2.8 g/dL (3.4-4.8); AMYLASE 74 U/L (0-100); ASPARTATE AMINOTRANSFERASE 12 U/L (10-37); LIPASE 240 U/L (73-393); TOTAL BILIRUBIN 0.2 mg/dL (0.0-1.0)
[2020-12-03 05:10] VITALS: BP_SYST 138
== END 2020-12-03 05:10 | disposition left against medical advice (07) ==
LOC: SED 01:47
DX: E83.51 Hypocalcemia (principal); E87.1 Hypo-osmolality and hyponatremia; I31.3 Pericardial effusion (noninflammatory); I10 Essential (primary) hypertension; M19.90 Unspecified osteoarthritis, unspecified site; F41.9 Anxiety disorder, unspecified; Z79.899 Other long term (current) drug therapy; Z88.0 Allergy status to penicillin; Z88.6 Allergy status to analgesic agent; Z20.822 Contact with and (suspected) exposure to COVID-19
CPT/HCPCS: 36415; 74176; 76376; 80053; 82150; 83690; 85025; 85610; 87426; 96361; 96374; 96375; 99285; J2270; J7030

== ENCOUNTER 2020-12-09 01:16 | Emergency (ER) | payer OTHER, MEDICAID, SELFPAY ==
[~2020-12-09] VITALS: Ht 157.5 cm; Wt 55.3 kg
[2020-12-09 01:16] VITALS: BP_SYST 144
[~2020-12-09 01:16] MED LIST changes: -DULO20CA PO; -EXCED PO; -NITR-85 PO
[2020-12-09] MEDS ORDERED: ONDA4TAB5 PO (01:28)
[2020-12-09] MEDS ORDERED: CAT1PAT PO (01:28)
[2020-12-09] MEDS ORDERED: AMLO5TAB4 PO (01:28)
[2020-12-09] MEDS ORDERED: TRAM50TA2 PO (01:29)
[2020-12-09 03:08] LABS: BASOPHILS # (AUTO) 0.1 K/uL (0.0-0.2); BASOPHILS % (AUTO) 1.2 % (0.0-2.0); EOSINOPHILS # (AUTO) 0.3 K/uL (0.0-0.4); HEMATOCRIT 44.8 % (36-48); HEMOGLOBIN 14.9 g/dL (12.0-16.0); LYMPHOCYTES # (AUTO) 2.3 K/uL (1.0-5.5); LYMPHOCYTES % (AUTO) 26.5 % (20.5-51.5); MEAN CORPUSCULAR HEMOGLOBIN 31 pg (27-31); MEAN CORPUSCULAR HGB CONC 33 % (32-36); MEAN CORPUSCULAR VOLUME 94 fL (79.0-98.0); MONOCYTES # (AUTO) 0.6 K/uL (0.0-1.0); MONOCYTES % (AUTO) 6.5 % (1.7-9.3); NEUTROPHILS # (AUTO) 5.5 K/uL (1.8-7.7); NEUTROPHILS % (AUTO) 62.8 % (40.0-70.0); PLATELET COUNT (AUTO) 243 K/uL (130-430); RED BLOOD CELL COUNT(AUTO) 4.76 MIL/uL (4.2-6.2); RED CELL DISTRIBUTION WIDTH 16.1 % (9.0-15.0); WHITE BLOOD COUNT (AUTO) 8.8 K/uL (4.8-10.8)
[2020-12-09] MEDS ORDERED: MORPHINE 4 MG INJ. 4 MG/ML VIAL IVP ONE (03:15)
[2020-12-09 03:22] LABS: ANION GAP 10 (5-15); CALCIUM 8.5 mg/dL (8.4-11.0); CHLORIDE 110 mmol/L (98-107); CREATININE 0.63 mg/dL (0.55-1.30); GLUCOSE 95 mg/dL (70-99); POTASSIUM 3.7 mmol/L (3.5-5.1); SODIUM SERUM 146 mmol/L (136-145); UREA NITROGEN, BLOOD 21 mg/dL (8-21)
[2020-12-09 03:28] LABS: ALANINE AMINOTRANSFERASE 23 U/L (12-78); ALBUMIN 3.1 g/dL (3.4-4.8); ASPARTATE AMINOTRANSFERASE 17 U/L (10-37); TOTAL BILIRUBIN 0.4 mg/dL (0.0-1.0)
[2020-12-09 03:41] LABS: C-REACTIVE PROTEIN QUANT 0.3 mg/dL (0-0.5)
[2020-12-09 04:23] LABS: ERYTHROCYTE SEDIMENTATION RATE 8 MM/HR (0-20)
[2020-12-09 06:01] VITALS: BP_SYST 138
== END 2020-12-09 06:01 | disposition home or self-care (01) ==
LOC: SED 01:16
DX: M79.7 Fibromyalgia (principal); I10 Essential (primary) hypertension; Z88.0 Allergy status to penicillin; Z88.6 Allergy status to analgesic agent
CPT/HCPCS: 36415; 73080; 80053; 82550; 85025; 85651; 86140; 96374; 99284; J2270

== ENCOUNTER 2021-03-02 22:42 | Emergency (ER) | payer OTHER, MEDICAID, SELFPAY ==
[~2021-03-02] VITALS: Ht 152.4 cm; Wt 49.0 kg
[~2021-03-02 22:42] MED LIST changes: +AMLO5TAB4 PO; +CAT1PAT PO; -GABA-531 PO; -LIP40 PO; -NOR10 PO; +ONDA4TAB5 PO; -PERC10 PO; +TRAM50TA2 PO
[2021-03-02 22:49] VITALS: BP_SYST 121
--- NOTE | 2021-03-02 22:49 | NUR ---
Patient to ER bed 8 to gown for evaluation. Side rails up.
--- NOTE | 2021-03-02 22:50 | NUR ---
PATIENT AAOX4 BIB BLS FROM [facility] C/O N/V X 2 DAYS WITH RUQ PAIN RADIATING TO THE BACK. CURRENTLY STATING 10/10 ON THE PAIN SCALE. VSS. DENIES DIARRHEA.
--- NOTE | 2021-03-02 23:50 | NUR ---
DR. LEVI AT BEDSIDE FOR EVALUATION.
--- NOTE | 2021-03-03 00:01 | NUR ---
PORTABLE XRAY DONE AT BEDSIDE.
--- NOTE | 2021-03-03 00:10 | NUR ---
# 20 gauge angiocath placed to RIGHT AC. Use of asceptic technique. Opsite placed over site. Blood return noted. Blood for lab drawn from site. Flushed with 10 cc of normal saline. No evidence of infiltration noted. Patient tolerated well.
[2021-03-03] MEDS ORDERED: MORPHINE 4 MG INJ. 4 MG/ML VIAL IVP ONE (00:15)
[2021-03-03] MEDS ORDERED: MAG HYDROX/AL HYDROX/SIMETH 30 ML, DICYCLOMINE HCL 20 MG, LIDOCAINE VISCOUS 2% 15ML (PO... PO ONE ×3 (00:15)
[2021-03-03] MEDS ORDERED: NACL 0.9% 1,000 ML IV ONE (00:15)
[2021-03-03] MEDS ORDERED: PROMETHAZINE INJ.Non-Formulary 25 MG/ML AMP IVP ONE (00:15)
[2021-03-03] MEDS ORDERED: ALPRAZolam 0.25 MG TABLET PO ONE (00:15)
[2021-03-03 00:48] LABS: ANION GAP 19 (5-15); CHLORIDE 98 mmol/L (98-107); CREATININE 0.64 mg/dL (0.55-1.30); GLUCOSE 119 mg/dL (70-99); POTASSIUM 3.6 mmol/L (3.5-5.1); SODIUM SERUM 136 mmol/L (136-145); UREA NITROGEN, BLOOD 26 mg/dL (8-21)
[2021-03-03 00:51] LABS: BASOPHILS # (AUTO) 0.1 K/uL (0.0-0.2); EOSINOPHILS % (AUTO) 0.2 % (0.0-4.0); HEMATOCRIT 54.2 % (36-48); HEMOGLOBIN 18.5 g/dL (12.0-16.0); LYMPHOCYTES # (AUTO) 1.5 K/uL (1.0-5.5); MEAN CORPUSCULAR HEMOGLOBIN 32 pg (27-31); MEAN CORPUSCULAR HGB CONC 34 % (32-36); MEAN CORPUSCULAR VOLUME 94 fL (79.0-98.0); MONOCYTES # (AUTO) 0.9 K/uL (0.0-1.0); NEUTROPHILS # (AUTO) 10.3 K/uL (1.8-7.7); NEUTROPHILS % (AUTO) 79.8 % (40.0-70.0); PLATELET COUNT (AUTO) 340 K/uL (130-430); RED BLOOD CELL COUNT(AUTO) 5.79 MIL/uL (4.2-6.2); RED CELL DISTRIBUTION WIDTH 15.4 % (9.0-15.0); WHITE BLOOD COUNT (AUTO) 12.9 K/uL (4.8-10.8)
[2021-03-03 01:03] LABS: ALANINE AMINOTRANSFERASE 15 U/L (12-78); ALBUMIN 3.7 g/dL (3.4-4.8); ASPARTATE AMINOTRANSFERASE 14 U/L (10-37); LIPASE 86 U/L (73-393)
[2021-03-03 01:07] LABS: ALCOHOL, BLOOD < 3 mg/dL (<10)
--- NOTE | 2021-03-03 01:13 | NUR ---
MEDICATION GIVEN ORDERED.
--- NOTE | 2021-03-03 01:15 | NUR ---
PATIENT REFUSED STRAIGHT CATH FOR URINE SAMPLE. MD LEVI MADE AWARE.
[2021-03-03] MEDS ORDERED: ONDA-8 TL (01:31)
[2021-03-03] MEDS ORDERED: PRO40 PO (01:31)
--- NOTE | 2021-03-03 01:33 | NUR ---
DR. LEVI AT BEDSIDE TO EXPLAIN AND EDUCATE PATIENT NEED FOR UA. PATIENT REFUSED AT THIS TIME TO PROVIDE URINE.
--- NOTE | 2021-03-03 03:00 | NUR ---
Patient resting quietly. No acute distress noted. Vital signs within normal range.
[2021-03-03 06:45] VITALS: BP_SYST 109
--- NOTE | 2021-03-03 06:45 | NUR ---
Patient given written and verbal discharge instructions and verbalizes understanding. DR. GURMEET HUANG MD discussed with patient the results and treatment provided. Patient in stable condition. ID arm band removed. IV catheter removed intact and dressing applied, no active bleeding. Patient educated on pain management and to follow up with PMD. Pain Scale 0/10. Opportunity for questions provided and answered. Medication side effect fact sheet provided.
== END 2021-03-03 06:45 | disposition home or self-care (01) ==
LOC: SED 22:42
DX: K30 Functional dyspepsia (principal); R65.10 Systemic inflammatory response syndrome (SIRS) of non-infectious origin without acute organ dysfunction; F11.23 Opioid dependence with withdrawal; I10 Essential (primary) hypertension; F17.210 Nicotine dependence, cigarettes, uncomplicated; Z88.0 Allergy status to penicillin; Z88.6 Allergy status to analgesic agent; Z79.899 Other long term (current) drug therapy
CPT/HCPCS: 36415; 74021; 80053; 83605; 83690; 85025; 87040; 96361; 96374; 99285; G0482; J2001; J2270; J7030; J2550

== ENCOUNTER 2021-04-01 00:22 | Emergency (ER) | payer OTHER, MEDICAID ==
[~2021-04-01] VITALS: Ht 162.6 cm; Wt 61.2 kg
[~2021-04-01 00:22] MED LIST changes: +ONDA-8 TL; +PRO40 PO
[2021-04-01 00:24] VITALS: BP_SYST 135
[2021-04-01 00:59] LABS: BASOPHILS % (AUTO) 0.4 % (0.0-2.0); EOSINOPHILS % (AUTO) 0.2 % (0.0-4.0); HEMATOCRIT 56.2 % (36-48); HEMOGLOBIN 19.6 g/dL (12.0-16.0); LYMPHOCYTES # (AUTO) 1.5 K/uL (1.0-5.5); LYMPHOCYTES % (AUTO) 12.4 % (20.5-51.5); MEAN CORPUSCULAR HEMOGLOBIN 32 pg (27-31); MEAN CORPUSCULAR HGB CONC 35 % (32-36); MEAN CORPUSCULAR VOLUME 92 fL (79.0-98.0); MONOCYTES % (AUTO) 7.9 % (1.7-9.3); NEUTROPHILS # (AUTO) 9.9 K/uL (1.8-7.7); NEUTROPHILS % (AUTO) 79.1 % (40.0-70.0); PLATELET COUNT (AUTO) 377 K/uL (130-430); RED BLOOD CELL COUNT(AUTO) 6.11 MIL/uL (4.2-6.2); RED CELL DISTRIBUTION WIDTH 15.3 % (9.0-15.0); WHITE BLOOD COUNT (AUTO) 12.5 K/uL (4.8-10.8)
[2021-04-01 01:03] LABS: ANION GAP 14 (5-15); CALCIUM 9.6 mg/dL (8.4-11.0); CHLORIDE 93 mmol/L (98-107); CREATININE 0.72 mg/dL (0.55-1.30); GLUCOSE 114 mg/dL (70-99); SODIUM SERUM 135 mmol/L (136-145); UREA NITROGEN, BLOOD 24 mg/dL (8-21)
[2021-04-01 01:11] LABS: ALANINE AMINOTRANSFERASE 12 U/L (12-78); ALBUMIN 4.1 g/dL (3.4-4.8); ASPARTATE AMINOTRANSFERASE 15 U/L (10-37); LIPASE 109 U/L (73-393); TOTAL BILIRUBIN 1.2 mg/dL (0.0-1.0)
[2021-04-01] MEDS ORDERED: MORPHINE 2 MG/ML INJ. SYRINGE ONE (02:59)
[2021-04-01] MEDS ORDERED: MORPHINE 2 MG/ML INJ. SYRINGE IM ONE (03:00)
[2021-04-01] MEDS ORDERED: POTASSIUM CHLORIDE 10 MEQ TAB.PRT.SR PO ONE (03:45)
[2021-04-01 06:30] VITALS: BP_SYST 135
== END 2021-04-01 06:30 | disposition home or self-care (01) ==
LOC: SED 00:22
DX: R10.13 Epigastric pain (principal); I10 Essential (primary) hypertension; Z88.0 Allergy status to penicillin; Z88.6 Allergy status to analgesic agent; Z79.899 Other long term (current) drug therapy
CPT/HCPCS: 36415; 74176; 76376; 80053; 83690; 84484; 85025; 93005; 96372; 99285; J2270